=== PATIENT | male | born 1990 | race Caucasian/White ===

== ENCOUNTER 2021-04-28 08:36 | Emergency (ER) | payer MEDICAID, SELFPAY ==
[2021-04-28 09:15] VITALS: BP 116/62; PULSE 71; RESP 12; TEMP 36.7; O2SAT 100; BMI 22.4
--- NOTE | 2021-04-28 09:50 | ED.ABDPAIN ---
HPI - Abdominal Pain General Chief Complaint: Abdominal Pain Stated Complaint: seeking help withdrwals Time Seen by Provider: 04/28/21 09:40 Source: patient and family Mode of arrival: ambulatory Limitations: no limitations History of Present Illness HPI narrative: 31-year-old male presenting to the ED seeking treatment for opiate withdrawals. The patient tells me that 3 years ago he was prescribed a prescription for oxycodone for dental procedure and since then he has been abusing oxycodone tablets almost daily. He has been using up to 50 mg daily and his last use was Wednesday. He has not had any oxycodone since then and he is complaining of joint pain, body aches, chills and generalized abdominal cramping. He is here seeking detox. No SI or HI.. He is interested in inpatient detox. Related Data Allergies Allergy/AdvReac Type Severity Reaction Status Date / Time aspirin [ASA] Allergy Unknown HIVES Unverified 07/18/20 18:29 penicillin G [PENICILLIN G] Allergy Unknown HIVES Unverified 07/18/20 18:29 shrimp Allergy Unknown THROAT AND Unverified 07/18/20 18:29 MOUTH SWELLING Review of Systems Review of Systems Yes all other systems are reviewed and are negative Constitutional: Reports no additional constitutional complaints, Denies body ache(s), Reports chills, Denies fever(s), Denies headache(s) and Denies weakness Eyes: Reports no additional eye complaints and Denies change in vision Reports system reviewed and no additional complaints, except as documented, Denies dizziness, Denies headache(s), Denies nasal congestion, Denies nasal discharge and Denies neck pain Cardiovascular: Reports no additional cardiovascular complaints, Denies chest pain, Denies leg edema and Denies dyspnea Respiratory: Reports no additional respiratory complaints, Denies cough and Denies dyspnea Gastrointestinal: Reports no additional gastrointestinal complaints, Reports abdominal pain, Denies diarrhea, Denies nausea and Denies vomiting Genitourinary: Denies urinary incontinence Musculoskeletal: Reports no additional musculoskeletal complaints, Denies back pain, Denies arthralgias, Denies joint swelling, Denies neck pain, Denies numbness and Denies tingling Skin/Breast: Reports system reviewed and no additional complaints, except as docu and Denies rash Reports system reviewed and no additional complaints, except as documented, Denies Abnormal speech present, Denies dizziness, Denies headache(s), Denies numbness, Denies tingling and Denies weakness Physical Exam Vital Signs: Vital Signs: Last Vital Signs Temp 97.9 F 04/28/21 10:58 Pulse 57 04/28/21 10:58 Resp 16 04/28/21 10:58 BP 127/77 04/28/21 10:58 Pulse Ox 97 04/28/21 10:58 Body Mass Index 22.4 Const: General: cooperative, healthy appearing, comfortable and no acute distress Orientation/consciousness: patient oriented x3 Limitations: no limitations HENMT: Head: Yes normal to inspection Ears: hearing grossly normal bilaterally General nose exam: Normal external nose present Face and sinus: Yes normal facial exam Mouth: Normal oral and palatal mucosa present Throat: Yes posterior oropharynx normal Eyes: General: appearance normal, both eyes and all related structures Pupils: Equal, round and reactive pupils present Neck: Neck: Yes normal visual inspection Chest: Chest palpation & inspection: normal inspection of the chest Resp: Effort & Inspection: normal respiratory effort Auscultation: clear to auscultation bilaterally Cardio: Rate: regular rate Rhythm: regular rhythm Peripheral pulses: Peripheral pulses 2+ throughout GI: Inspection: Yes normal to inspection Palpation (GI): Soft to palpation and nontender Auscultation: normal bowel sounds Back/Spine/Pelvis: Thoracic/Lumbar Spine: thoracic and lumbar spine normal to inspection Skin: General skin exam: no rashes or lesions noted Neuro: General: patient oriented x3, no focal motor deficits and normal sensation to monofilament Cranial nerves: Yes Equal, round and reactive pupils present Cognition (Neuro): normal cognition Speech: No Abnormal speech present Gait exam (Neuro): Normal gait present Motor exam (neuro): 5/5 motor strength present throughout Extrem: General: Yes normal to inspection Course Course Course Narrative: 31-year-old male here with complaints of withdrawal from opiates. Last used Wednesday. seeking inpatient care. will order drug screen, have care team or power and recovery superintendent come and see patient -Going to [facility] detox from ED. Family to transport. MDM - Abdominal Pain MDM Narrative Medical decision making narrative: Opioid use disorder Medical Records Attestation: I reviewed the patient's medical records. Lab Data Attestation: I reviewed the patient's lab results. Labs: Lab Results 04/28/21 04/28/21 04/28/21 Range/Units 10:41 10:43 12:19 Urine Opiates Screen Not Detected (Not Detect) Ur Barbiturates Screen Not Detected (Not Detect) Ur Phencyclidine Scrn Not Detected (Not Detect) Ur Amphetamines Screen Not Detected (Not Detect) U Benzodiazepines Scrn Not Detected (Not Detect) Urine Cocaine Screen POSITIVE H (Not Detect) U Marijuana (THC) Screen POSITIVE H (Not Detect) Ethyl Alcohol < 10 mg/dL COVID-19 ([facility]) Negative (Negative) COVID-19 Clin Com See Note Discharge Plan Discharge Clinical Impression: Opioid use disorder Patient Disposition: Home, Self-Care Instructions: Opioid Use Disorder (ED) Additional Instructions: go direct to detox Referrals: Physician,None [Primary Care Provider] - 2 days (as needed) Interventions: ED Discharge Assessment Last Done: 04/28/21 13:37 Discharge Date/Time: 04/28/21 13:38 [facility] Past Medical History Attestation statement: The following information was validated with the patient. Source: old records reviewed and nursing notes reviewed Social History Social History Advance Directives: No Advance Directives Information Provided: No
[2021-04-28 10:58] VITALS: BP 127/77; PULSE 57; RESP 16; TEMP 36.6; O2SAT 97
[2021-04-28 11:11] LABS: Ethanol < 10 mg/dL
[2021-04-28 11:21] LABS: COVID-19 Test Negative (Negative); IDNOW Serial# 9DD0AD1C
--- NOTE | 2021-04-28 11:35 | MHC.RECOVSUP ---
Recovery Support note: Patient is a 31 year old male who presented to [facility] ED seeking detox. Patient reports using approximately 50mg of oxycodone daily with last use occurring Wednesday. Patient reports he stop using as he wants to get into recovery. Patient is reporting withdrawal symptoms and a desire to go to detox for withdrawal symptom management. Patient is currently uninsured however has a MA ID. This fiction and nonfiction prose writer and [employer] Srinath met with patient to verify that he is willing to travel outside of [facility] for treatment. Patient reports he is willing to go anywhere. Patient has been referred to [facility], [facility] and [facility]. Patient's clinical information is currently being reviewed by these facilities.
[2021-04-28] MEDS: Acetaminophen 325 MG TABLET 975 MG PO (12:22)
[2021-04-28 12:46] LABS: Amphetamine Screen Urine Not Detected (Not Detect); Barbiturates, Urine Not Detected (Not Detect); Benzodiazepines Screen Urine Not Detected (Not Detect); Cannabinoid Screen Urine POSITIVE (Not Detect); Cocaine Screen Urine POSITIVE (Not Detect); Opiate Screen Urine Not Detected (Not Detect); Phencyclidine Screen Urine Not Detected (Not Detect)
== END 2021-04-28 13:38 | disposition home or self-care (01) ==
PROVIDERS: Nurse Practitioner Family; Emergency Provider Emergency Medicine Emergency Medical Services
DX: F11.23 Opioid dependence with withdrawal (principal); Z20.822 Contact with and (suspected) exposure to COVID-19
CPT/HCPCS: 36415; 80307; 82077; 87635; 99283; 99284

== ENCOUNTER 2021-06-20 07:19 | Emergency (ER) | payer OTHER, MEDICAID, SELFPAY ==
--- NOTE | ~2021-06-20 | XR_ITS ---
EXAMINATION: XR WRIST, RIGHT CLINICAL INFORMATION: Injury, pain and swelling COMPARISON: None TECHNIQUE: The right wrist is imaged in 4 views. FINDINGS: There is no fracture or dislocation. The bony mineralization is normal. No destructive process or periostitis. The ulnar variance is neutral. There is no joint narrowing or erosive change or chondrocalcinosis. XR/XR wrist RT min 3V IMPRESSION: Normal right wrist.
[2021-06-20 08:35] VITALS: BP 106/69; PULSE 67; RESP 18; TEMP 36.7; O2SAT 98; BMI 24.1
[2021-06-20] MEDS: Diphth,Pertus(ACell),Tet Adult 0.5 ML SYRINGE IM (09:21)
--- NOTE | 2021-06-20 09:32 | ED.EXTPRO ---
HPI - Extremity Problem General Chief complaint: Extremity Injury, Upper Stated complaint: hand injury - work related Time Seen by Provider: 06/20/21 09:12 Source: patient Mode of arrival: ambulatory Limitations: no limitations History of Present Illness HPI Narrative: 31-year-old male presenting to the ED after a work related injury where he caught his hand between some metal pallets and fell and since then has been having pain to his right wrist/hand/thumb and reports pain with range of motion. Reports that he is not up-to-date on tetanus. Denies any numbness or tingling or inability to move the joint or other injuries complaints or concerns. MD Complaint: extremity pain Onset (ago): minute(s) (Prior to arrival) Pain Consistency: constant Location: right and upper extremity Quality: aching Radiation: none Relieving factors: immobilization Exacerbating factors: range of motion and palpation Associated symptoms: denies other symptoms Related Data Previous Rx's Medication Instructions Recorded acetaminophen 300 mg-codeine 30 mg 1 tab PO Q8H PRN #10 tab 06/20/21 tablet ibuprofen 800 mg tablet 800 mg PO Q8H PRN #14 tab 06/20/21 Allergies Allergy/AdvReac Type Severity Reaction Status Date / Time aspirin [ASA] Allergy Unknown HIVES Verified 06/20/21 08:38 penicillin G [PENICILLIN G] Allergy Unknown HIVES Verified 06/20/21 08:38 shrimp Allergy Unknown THROAT AND Verified 06/20/21 08:38 MOUTH SWELLING Review of Systems Review of Systems: Constitutional : No lethargy ENT/Mouth : No Ear Pain, No Nasal discharge/drainage Eyes: No Eye Pain, No Swelling, No Redness, No Foreign Body, No Vision Changes Cardiovascular : No Chest Pain, No SOB Respiratory : No Cough Gastrointestinal : No Nausea, No Vomiting, No abdominal Pain Genitourinary : No Dysuria, No Urinary Frequency, No Urinary Incontinence, No Urgency, No Flank Pain Musculoskeletal : + joint pain, No neck stiffness, No back pain/injury Skin : No lacerations Neuro : No unsteady gait, No Paresthesias, No Loss of Consciousness, No altered mental status, No Headache Yes all other systems are reviewed and are negative PMFSH Past Medical History Attestation statement: The following information was validated with the patient. Medical History No known health problems Social History Social History Advance Directives: No Advance Directives Information Provided: No Physical Exam Vital Signs: Vital Signs: Last Vital Signs Temp 98.0 F 06/20/21 08:35 Pulse 67 06/20/21 08:35 Resp 18 06/20/21 08:35 BP 106/69 06/20/21 08:35 Pulse Ox 98 06/20/21 08:35 Body Mass Index 24.1 vital signs have been reviewed as normal and appeared to be correct. Blood pressure normal. Heart rate normal. Respiration rate normal. Temperature normal. Oxygen saturation normal. Appearance: Alert. Oriented X3. No acute distress. Head: Normal external exam. Normocephalic. Atraumatic. Eyes: PERRLA. EOMI. Conjunctiva and sclera normal. Eyelids normal. ENT: Pharynx normal. Uvula midline. Moist mucous membranes. Neck: Normal inspection. Neck supple. FROM. No adenopathy. Thyroid Normal. No meningeal signs. No neck mass noted. CVS: Normal heart rate and rhythm. Heart sound normal. Pulses normal throughout. No murmurs/rales/gallops. Respiratory: No respiratory distress. Painless inspiration. Breath sounds normal. No wheezes/rales/rhonchi noted. Chest nontender. No accessory muscle usage noted or decreased air movement noted. Back: No CVA tenderness. Full range of motion noted. No rashes/lesion/induration/fluctuance or signs of infection noted. Skin: Skin warm and dry. Normal skin color. Normal skin turgor. No rashes/lesions/lacerations noted. Extremities: Patient with tenderness palpation to right wrist at the radial aspect with tenderness palpation at the scaphoid and superficial abrasions no active bleeding or foreign bodies or lacerations noted. No ligamentous laxity is noted. Patient reports pain with range of motion and has mild limited range of motion of the right thumb due to pain. Otherwise all other normal range of motion and nontender. Neuro: Oriented X 3. No motor deficit. No sensory deficit. Reflexes normal. Normal steady gait. No focal neuro deficits noted. Vascular: + radial pulses/+ 2 distal pedal pulses/+2 dorsalis pedis b/l. Normal cap refill. No cyanosis noted to upper extremity nails and lower extremity toes nails. Course Course Course Narrative: 31-year-old male presenting to the ED after work related injury where his hand/wrist was caught between metal pallets and since then he has been having pain to right thumb/hand/wrist with pain with range of motion of the right thumb although no ligamentous laxity. Patient has superficial abrasions. No active bleeding or foreign bodies or lacerations. No indication for suturing. X-ray negative for any acute processes. Although due to patient having scaphoid tenderness will place in a thumb spica update the patient's tetanus and DC home with instructions to follow up with [facility] and [facility] surgeon and to return if any new or worsening symptoms. Patient understands agrees with this plan. MDM - Extremity (Nontraumatic) Imaging Data Right wrist x-ray: Attestation: I personally reviewed and interpreted this imaging study as follows: Radiologist's impression: FINDINGS: There is no fracture or dislocation. The bony mineralization is normal. No destructive process or periostitis. The ulnar variance is neutral. There is no joint narrowing or erosive change or chondrocalcinosis.? XR/XR wrist RT min 3V IMPRESSION: Normal right wrist. Procedures Orthopedic Splinting/Casting Injury #1: Side: right Upper Extremity Injury Location: wrist and hand Upper Extremity Immobilizer: thumb spica Discharge Plan Discharge Clinical Impression: Sprain and strain of wrist Patient Disposition: Home, Self-Care Instructions: Sprain (ED) Prescriptions: New ibuprofen 800 mg tablet 800 mg PO Q8H PRN (Reason: pain) Qty: 14 RF: 0 acetaminophen-codeine 300-30 mg tablet 1 tab PO Q8H PRN (Reason: pain) Qty: 10 RF: 0 Referrals: [facility] [Provider Group] - 2 days Didi Killian MD [Physician] - 1 week (Re-evaluation patient noted to have scaphoid tenderness) Stand Alone Forms: Work/School Release Print Language: Estonian
== END 2021-06-20 09:53 | disposition home or self-care (01) ==
PROVIDERS: Emergency Provider Internal Medicine
DX: S66.911A Strain of unspecified muscle, fascia and tendon at wrist and hand level, right hand, initial encounter (principal); S63.501A Unspecified sprain of right wrist, initial encounter; W23.1XXA Caught, crushed, jammed, or pinched between stationary objects, initial encounter; Y93.89 Activity, other specified; Y92.63 Factory as the place of occurrence of the external cause; Y99.0 Civilian activity done for income or pay
CPT/HCPCS: 29125; 73110; 90471; 90715; 99283; 99284

== ENCOUNTER 2021-08-18 14:52 | Emergency (ER) | payer MEDICAID, SELFPAY ==
[2021-08-18 15:22] VITALS: BP 126/57; PULSE 62; RESP 18; TEMP 36.9; O2SAT 99; BMI 24.4
--- NOTE | 2021-08-18 15:23 | ED.GENADULT ---
HPI - General Adult General Chief complaint: Fever Stated complaint: Fever Time Seen by Provider: 08/18/21 15:23 Source: patient Mode of arrival: ambulatory Limitations: no limitations History of Present Illness HPI narrative: 31 yo male here with complaints of subjective fever, diarrhea, sore throat, nausea, upper abdominal pain since yesterday. No cough, shortness of breath or chest pain. Not vaccinated for COVID 19. Related Data Previous Rx's Medication Instructions Recorded acetaminophen 300 mg-codeine 30 mg 1 tab PO Q8H PRN #10 tab 06/20/21 tablet ibuprofen 800 mg tablet 800 mg PO Q8H PRN #14 tab 06/20/21 Allergies Allergy/AdvReac Type Severity Reaction Status Date / Time aspirin [ASA] Allergy Unknown HIVES Verified 06/20/21 08:38 penicillin G [PENICILLIN G] Allergy Unknown HIVES Verified 06/20/21 08:38 shrimp Allergy Unknown THROAT AND Verified 06/20/21 08:38 MOUTH SWELLING Review of Systems Review of Systems: Yes all other systems are reviewed and are negative Constitutional: Constitutional: Reports no additional constitutional complaints, Denies body ache(s), Denies chills, Reports fever(s), Denies headache(s) and Denies weakness Eyes: Eyes: Reports no additional eye complaints and Denies change in vision ENT: Reports system reviewed and no additional complaints, except as documented, Denies dizziness, Denies headache(s), Denies nasal congestion, Denies nasal discharge, Denies neck pain and Reports sore throat Cardiovascular: Cardiovascular: Reports no additional cardiovascular complaints, Denies chest pain, Denies leg edema and Denies dyspnea Respiratory: Respiratory: Reports no additional respiratory complaints, Denies cough and Denies dyspnea Gastrointestinal: Gastrointestinal: Reports no additional gastrointestinal complaints, Reports abdominal pain, Reports diarrhea, Reports nausea and Denies vomiting Genitourinary: Genitourinary: Denies urinary incontinence Musculoskeletal: Musculoskeletal: Reports no additional musculoskeletal complaints, Denies back pain, Denies arthralgias, Denies joint swelling, Denies neck pain, Denies numbness and Denies tingling Integumentary/Breasts: Skin/Breast: Reports system reviewed and no additional complaints, except as docu and Denies rash Neurologic: Reports system reviewed and no additional complaints, except as documented, Denies Abnormal speech present, Denies dizziness, Denies headache(s), Denies numbness, Denies tingling and Denies weakness PMFSH Past Medical History Attestation statement: The following information was validated with the patient. Source: old records reviewed and nursing notes reviewed Medical History No known health problems Social History Social History Advance Directives: No Advance Directives Information Provided: No Physical Exam Vital Signs: Vital Signs: Last Vital Signs Temp 98.5 F 08/18/21 15:22 Pulse 62 08/18/21 15:22 Resp 18 08/18/21 15:22 BP 126/57 L 08/18/21 15:22 Pulse Ox 99 08/18/21 15:22 Body Mass Index 24.4 Const: General: cooperative, healthy appearing, comfortable and no acute distress Orientation/consciousness: patient oriented x3 Limitations: no limitations HENMT: Head: Yes normal to inspection Ears: hearing grossly normal bilaterally and TM's normal bilaterally General nose exam: Normal external nose present Face and sinus: Yes normal facial exam Mouth: Normal oral and palatal mucosa present Throat: Yes posterior oropharynx normal, Yes tonsils normal and Yes uvula midline Eyes: General: appearance normal, both eyes and all related structures Pupils: Equal, round and reactive pupils present Neck: Neck: Yes normal visual inspection, Yes full ROM, Yes no lymphadenopathy and Yes no meningeal signs Chest: Chest palpation & inspection: normal inspection of the chest Resp: Effort & Inspection: normal respiratory effort Auscultation: clear to auscultation bilaterally Cardio: Rate: regular rate Rhythm: regular rhythm Peripheral pulses: Peripheral pulses 2+ throughout GI: Inspection: Yes normal to inspection Palpation (GI): Soft to palpation and nontender Auscultation: normal bowel sounds Back/Spine/Pelvis: Thoracic/Lumbar Spine: thoracic and lumbar spine normal to inspection Skin: General skin exam: no rashes or lesions noted Neuro: General: patient oriented x3, no meningeal signs, no focal motor deficits and normal sensation to monofilament Cranial nerves: Yes Equal, round and reactive pupils present Cognition (Neuro): normal cognition Speech: No Abnormal speech present Gait exam (Neuro): Normal gait present Motor exam (neuro): 5/5 motor strength present throughout Extrem: General: Yes normal to inspection Course Course Course Narrative: 1523-This is a rapid medical exam. 31 yo male here with diarrhea, sore throat, subjective fevers, nausea and upper abdominal pain since last evening. Not vaccinated for covid. Will check covid screen. Deferred additional HPI, ROS and PE to primary provider 1630-Viral symptoms <48 hrs. COVID screen negative. Likely viral but consider covid and patient should get re-tested in 48 hrs for persistent symptoms. No focal abdominal pain on exam. Reviewed worrisome signs/symptoms with patient and when to return to ED. Comfortable with discharge home. Medical Decision Making Medical Records Medical records reviewed: Yes I reviewed the patient's medical records. Lab Data Lab results reviewed: Yes I reviewed the patient's lab results. Labs: Lab Results 08/18/21 Range/Units 15:34 COVID-19 ([facility]) Negative (Negative) COVID-19 Clin Com See Note Discharge Plan Discharge Clinical Impression: Viral infection Patient Disposition: Home, Self-Care Instructions: Viral Syndrome (ED) Additional Instructions: Covid test negative. If persistent symptoms in 48 hrs then re-test motrin or tylenol for pain or fever increase fluids, rest Prescriptions: No Action ibuprofen 800 mg tablet 800 mg PO Q8H PRN (Reason: pain) Qty: 14 RF: 0 acetaminophen-codeine 300-30 mg tablet 1 tab PO Q8H PRN (Reason: pain) Qty: 10 RF: 0 Stand Alone Forms: Work/School Release Interventions: ED Discharge Assessment Last Done: 08/18/21 16:22 Discharge Date/Time: 08/18/21 16:23
[2021-08-18 15:55] LABS: COVID-19 Test Negative (Negative); IDNOW Serial# 9DD0AD1C
== END 2021-08-18 16:23 | disposition home or self-care (01) ==
PROVIDERS: Nurse Practitioner Family; Emergency Provider Student in an Organized Health Care Education/Training Program
DX: B34.9 Viral infection, unspecified (principal); R50.9 Fever, unspecified; Z20.822 Contact with and (suspected) exposure to COVID-19; Z79.899 Other long term (current) drug therapy
CPT/HCPCS: 36415; 87635; 99283

== ENCOUNTER 2021-08-19 20:12 | Emergency (ER) | payer MEDICAID, SELFPAY ==
--- NOTE | ~2021-08-19 | XR_ITS ---
EXAMINATION: XR CHEST CLINICAL INFORMATION: Cough COMPARISON: Chest x-ray September 06, 2016 TECHNIQUE: Frontal view of the chest was obtained. FINDINGS: Cardiac silhouette is normal in size. The lungs are well aerated. There is no lobar consolidation. No pleural effusion or pneumothorax. No gross osseous abnormality. XR/XR chest 1V IMPRESSION: Stable examination demonstrating no acute pulmonary pathology.
[2021-08-19 20:33] VITALS: BP 139/75; PULSE 102; RESP 18; TEMP 36.9; O2SAT 98; BMI 25.7
--- NOTE | 2021-08-19 21:25 | ED_ITS ---
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 rash had similar episode in the past and had to use inhaler that time no history of asthma as such Related Data Previous Rx's Medication Instructions Recorded acetaminophen 300 mg-codeine 30 mg 1 tab PO Q8H PRN #10 tab 06/20/21 tablet ibuprofen 800 mg tablet 800 mg PO Q8H PRN #14 tab 06/20/21 albuterol sulfate 90 mcg/actuation 2 puff INHALATION Q4-6H PRN #8.5 g 08/19/21 aerosol inhaler (ProAir HFA) codeine 10 mg-guaifenesin 100 mg/5 10 ml PO Q4-6H PRN #237 ml 08/19/21 mL oral liquid levofloxacin 750 mg tablet 750 mg PO DAILY 7 Days #7 tab 08/19/21 prednisone 20 mg tablet 40 mg PO DAILY #10 tab 08/19/21 Allergies Allergy/AdvReac Type Severity Reaction Status Date / Time aspirin [ASA] Allergy Unknown HIVES Verified 08/19/21 20:33 penicillin G [PENICILLIN G] Allergy Unknown HIVES Verified 08/19/21 20:33 shrimp Allergy Unknown THROAT AND Verified 08/19/21 20:33 MOUTH SWELLING Review of Systems Review of Systems: Yes all other systems are reviewed and are negative PMFSH Past Medical History Medical History No known health problems Social History Social History Advance Directives: No Advance Directives Information Provided: No Physical Exam Vital Signs: Vital Signs: Last Vital Signs Temp 98.7 F 08/19/21 21:58 Pulse 80 08/19/21 21:58 Resp 20 08/19/21 21:58 BP 109/58 L 08/19/21 21:58 Pulse Ox 98 08/19/21 21:58 Body Mass Index 25.7 Appearance: Alert. Oriented X3. No acute distress. ENT: Pharynx normal. Oral Mucosa moist Neck: Normal inspection. Neck supple. CVS: Normal heart rate and rhythm. Pulses normal. Respiratory: No respiratory distress. Prolonged expiration with wheezing no crackles Abdomen: Soft and nontender. Bowel sounds are present, Skin: Skin warm and dry. Normal skin color. Normal skin turgor. Extremities: No lower extremity edema. No calf tenderness Neuro: Oriented X 3. MDM - URI/Sore Throat MDM Narrative Medical decision making narrative: Patient clinically with acute bronchitis repeat COVID negative discharge patient on prednisone inhaler and short course of Levaquin Lab Data Attestation: I reviewed the patient's lab results. Result diagrams: 08/19/21 21:36 08/19/21 21:36 Labs: Lab Results 08/19/21 08/19/21 08/19/21 Range/Units 21:36 21:36 21:36 WBC 6.9 (4.8-10.8) X10*3/uL RBC 4.90 (4.60-5.80) X10*6/uL Hgb 15.6 (14.0-18.0) g/dl Hct 44.8 (42-52) % MCV 91.4 (80-98) fL MCH 31.8 (27.0-33.0) pg MCHC 34.8 (31.0-36.0) g/dl RDW 12.6 (11.0-16.0) % Plt Count 191 (160-400) X10*3/uL MPV 9.9 (9.4-12.4) fL Immature Gran % (Auto) 0.1 (0.0-0.4) % Neut % (Auto) 66.0 (45-73) % Lymph % (Auto) 22.5 (20-40) % [place] % (Auto) 9.1 (2-11) % Eos % (Auto) 1.9 (0-4) % Baso % (Auto) 0.4 (0-2) % Lymph # (Auto) 1.5 (1.2-4.9) X10*3/uL [place] # (Auto) 0.6 (0.1-1.2) X10*3/uL Eos # (Auto) 0.1 (0.0-0.4) X10*3/uL Baso # (Auto) 0.0 (0.0-0.2) X10*3/uL Abs Immat Gran (auto) 0.01 (0.00-0.03) X10*3/uL Absolute Neuts (auto) 4.5 (2.0-8.3) X10*3/uL Absolute Nucleated RBC 0.000 (0.0-0.012) X10*3/uL Nucleated RBC % (auto) 0.0 (0.0-0.2) /100WBC Sodium 143 (135-145) mmol/L Potassium 4.0 (3.3-5.1) mmol/L Chloride 106 (96-108) mmol/L Carbon Dioxide 27 (22-29) mmol/L Anion Gap 14 (12-20) BUN 11 (9-16) mg/dL Creatinine 0.98 (0.5-1.4) mg/dL Estim Creat Clear Calc 122.0 Estimated GFR > 60 Random Glucose 94 (60-115) mg/dL Calcium 9.6 (8.4-10.2) mg/dL COVID-19 ([facility]) Negative (Negative) COVID-19 Clin Com See Note Discharge Plan Discharge Clinical Impression: Bronchitis Patient Disposition: Home, Self-Care Instructions: Acute Bronchitis (ED) Additional Instructions: Take medication as prescribed and follow with PCP Prescriptions: New levofloxacin 750 mg tablet 750 mg PO DAILY 7 Days Qty: 7 RF: 0 prednisone 20 mg tablet 40 mg PO DAILY Qty: 10 RF: 0 codeine-guaifenesin 10-100 mg/5 mL liquid 10 ml PO Q4-6H PRN (Reason: cough) Qty: 237 RF: 0 albuterol sulfate [ProAir HFA] 90 mcg/actuation HFA aerosol inhaler 2 puff inhalation Q4-6H PRN (Reason: Wheezing) Qty: 8.5 RF: 0 No Action ibuprofen 800 mg tablet 800 mg PO Q8H PRN (Reason: pain) Qty: 14 RF: 0 acetaminophen-codeine 300-30 mg tablet 1 tab PO Q8H PRN (Reason: pain) Qty: 10 RF: 0 Stand Alone Forms: Work/School Release Interventions: ED Discharge Assessment Last Done: 08/19/21 23:19 Discharge Date/Time: 08/19/21 23:19
[2021-08-19 21:45] LABS: MANUAL DIFF FLAG NO
[2021-08-19 21:50] LABS: Basophils Percent Auto 0.4 % (0-2); Eosinophils Absolute Auto 0.1 X10*3/uL (0.0-0.4); Eosinophils Percent Auto 1.9 % (0-4); Hematocrit 44.8 % (42-52); Hemoglobin 15.6 g/dl (14.0-18.0); Imm Gran Abs Auto 0.01 X10*3/uL (0.00-0.03); Imm Gran Pct Auto 0.1 % (0.0-0.4); Lymphocytes Absolute Auto 1.5 X10*3/uL (1.2-4.9); Lymphocytes Percent Auto 22.5 % (20-40); Mean Corpuscular HGB Conc 34.8 g/dl (31.0-36.0); Mean Corpuscular Hemoglobin 31.8 pg (27.0-33.0); Mean Corpuscular Volume 91.4 fL (80-98); Mean Platelet Volume 9.9 fL (9.4-12.4); Monocytes Absolute Auto 0.6 X10*3/uL (0.1-1.2); Monocytes Percent Auto 9.1 % (2-11); Neutrophils Absolute Auto 4.5 X10*3/uL (2.0-8.3); Platelet Count 191 X10*3/uL (160-400); Red Cell Distribution Width 12.6 % (11.0-16.0); White Blood Count 6.9 X10*3/uL (4.8-10.8)
[2021-08-19 21:58] VITALS: BP 109/58; PULSE 80; RESP 20; TEMP 37.1; O2SAT 98
[2021-08-19 22:03] LABS: COVID-19 Test Negative (Negative); IDNOW Serial# 9DD0AD1C
[2021-08-19 22:04] LABS: Anion Gap 14 (12-20); Blood Urea Nitrogen 11 mg/dL (9-16); Calcium 9.6 mg/dL (8.4-10.2); Carbon Dioxide 27 mmol/L (22-29); Chloride 106 mmol/L (96-108); Estimated Glomerular Filt Rate > 60; Glucose Random 94 mg/dL (60-115); Sodium 143 mmol/L (135-145)
[2021-08-19] MEDS: guaiFEN/Codeine SF 200/20/10ML 10 ML LIQUID PO (22:46)
[2021-08-19] MEDS: levoFLOXacin 500 MG TABLET 750 MG PO (22:47)
[2021-08-19] MEDS: predniSONE 20 MG TABLET 60 MG PO (22:47)
== END 2021-08-19 23:19 | disposition home or self-care (01) ==
PROVIDERS: Emergency Provider Internal Medicine
DX: J40 Bronchitis, not specified as acute or chronic (principal); Z20.822 Contact with and (suspected) exposure to COVID-19
CPT/HCPCS: 36415; 71045; 80048; 85025; 87635; 99284

== ENCOUNTER 2021-09-30 04:56 | Emergency (ER) | payer MEDICAID, SELFPAY ==
--- NOTE | ~2021-09-30 | XR_ITS ---
EXAMINATION: XR CHEST CLINICAL INFORMATION: Shortness of breath and COVID positive. COMPARISON: Chest x-ray dated 08/19/2021. TECHNIQUE: Frontal view of the chest was obtained. FINDINGS: No consolidative airspace disease identified. No pleural effusions visible. The cardiomediastinal silhouette is normal. No acute osseous abnormality is seen. XR/XR chest 1V IMPRESSION: No focal airspace disease. If clinically warranted, a CT scan of the chest could be considered in follow-up for more detailed evaluation.
[2021-09-30 05:50] VITALS: BP 141/74; PULSE 87; RESP 16; TEMP 36.9; O2SAT 99; BMI 21.7
[2021-09-30 06:16] LABS: COVID-19 Test Positive (Negative)
--- NOTE | 2021-09-30 07:00 | ED.GENADULT ---
HPI - General Adult General Chief complaint: Upper Respiratory Symptoms Stated complaint: fever, bodyache Time Seen by Provider: 09/30/21 06:59 Source: patient Mode of arrival: ambulatory Limitations: no limitations History of Present Illness HPI narrative: 31-year-old male came in for evaluation of upper respiratory symptoms. Patient had a fever, chills, sore throat, difficulty breathing, loss of taste sensation, patient just travel from [place] yesterday reported that to family member were sick. Patient reported also a mild shortness of breath, patient is a smoker. Patient lives home with his twin children. Related Data Previous Rx's Medication Instructions Recorded acetaminophen 300 mg-codeine 30 mg 1 tab PO Q8H PRN #10 tab 06/20/21 tablet ibuprofen 800 mg tablet 800 mg PO Q8H PRN #14 tab 06/20/21 albuterol sulfate 90 mcg/actuation 2 puff INHALATION Q4-6H PRN #8.5 g 08/19/21 aerosol inhaler (ProAir HFA) codeine 10 mg-guaifenesin 100 mg/5 10 ml PO Q4-6H PRN #237 ml 08/19/21 mL oral liquid levofloxacin 750 mg tablet 750 mg PO DAILY 7 Days #7 tab 08/19/21 prednisone 20 mg tablet 40 mg PO DAILY #10 tab 08/19/21 Allergies Allergy/AdvReac Type Severity Reaction Status Date / Time aspirin [ASA] Allergy Unknown HIVES Verified 08/19/21 20:33 penicillin G [PENICILLIN G] Allergy Unknown HIVES Verified 08/19/21 20:33 shrimp Allergy Unknown THROAT AND Verified 08/19/21 20:33 MOUTH SWELLING Review of Systems Review of Systems: All other systems are reviewed and are negative Constitutional: Reports as per HPI and Reports no additional constitutional complaints Eyes: Reports as per HPI and Reports no additional eye complaints Reports system reviewed and no additional complaints, except as documented Cardiovascular: Reports as per HPI and Reports no additional cardiovascular complaints Respiratory: Reports as per HPI and Reports no additional respiratory complaints Gastrointestinal: Reports as per HPI and Reports no additional gastrointestinal complaints Genitourinary: Reports no additional female genitourinary complaints Musculoskeletal: Reports no additional musculoskeletal complaints Skin/Breast: Reports system reviewed and no additional complaints, except as docu Psychiatric: Reports no additional psychiatric complaints Endocrine: Reports no additional endocrine complaints Hematologic/Lymphatic: Reports no additional hematologic/lymphatic complaints Allergic/Immunologic: Reports no additional allergic/immunologic complaints Reports system reviewed and no additional complaints, except as documented and Reports Abnormal speech present [facility] Past Medical History Medical History Asthma Social History Social History Advance Directives: No Advance Directives Information Provided: No Physical Exam Vital Signs: Vital Signs: Last Vital Signs Temp 97.3 F 09/30/21 07:53 Pulse 93 09/30/21 07:53 Resp 18 09/30/21 07:53 BP 109/62 09/30/21 07:53 Pulse Ox 97 09/30/21 07:53 Body Mass Index 21.7 Vital signs have been reviewed as appeared to be correct. Blood pressure normal. Heart rate normal. Respiration rate normal. Temperature normal. Oxygen saturation normal. Appearance: Alert. Oriented X3. No acute distress. Head: Normal external exam. Normocephalic. Atraumatic. No Rivera signs noted. No raccoon eyes noted Eyes: PERRLA. EOMI. Conjunctiva and sclera normal. Eyelids normal. ENT: TM's Normal. Pharynx normal. Uvula midline. Moist mucous membranes. No trismus noted. No drooling noted. No muffled voice noted. Neck: Normal inspection. Neck supple. FROM. No adenopathy. Thyroid Normal. No meningeal signs. No neck mass noted. CVS: Normal heart rate and rhythm. Heart sound normal. No murmurs noted. Pulses normal throughout. Respiratory: No respiratory distress. Painless inspiration. Breath sounds normal. No wheezes/rales/rhonchi noted. Chest nontender. No accessory muscle usage noted or decreased air movement noted. Abdomen: Soft and nontender. Bowel sounds normal in all 4 quadrants. No distention noted. No organomegaly noted. No visible injury noted. Back: No CVA tenderness. Full range of motion noted. Skin: Skin warm and dry. Normal skin color. Normal skin turgor. No rashes/lesions/lacerations noted. Extremities: No lower extremity edema. Extremities exhibit normal range of motion. Extremities nontender. Neuro: Oriented X 3. Cranial nerve exam: II-XII are grossly intact No motor deficit. No sensory deficit. Reflexes normal. Course Course Course Narrative: Assessment and plan. 31-year-old male positive for COVID infection, with normal oxygen saturation, unremarkable chest x-ray. Will discharge home patient was instructed to quarantine himself. Medical Decision Making Lab Data Lab results reviewed: Yes I reviewed the patient's lab results. Labs: Lab Results 09/30/21 Range/Units 06:03 COVID-19 ([facility]) Positive A (Negative) COVID-19 Clin Com See Note Imaging Data Chest x-ray: Attestation: I personally reviewed and interpreted this imaging study as follows: Radiologist's impression: No focal airspace disease. If clinically warranted, a CT scan of the chest could be considered in follow-up for more detailed evaluation. ? Discharge Plan Discharge Clinical Impression: COVID-19 virus infection Patient Disposition: Home, Self-Care Instructions: Covid-19 Viral Syndrome and Novel Coronavirus (ED) Hey/Ath Prescriptions: No Action ibuprofen 800 mg tablet 800 mg PO Q8H PRN (Reason: pain) Qty: 14 RF: 0 acetaminophen-codeine 300-30 mg tablet 1 tab PO Q8H PRN (Reason: pain) Qty: 10 RF: 0 levofloxacin 750 mg tablet 750 mg PO DAILY 7 Days Qty: 7 RF: 0 prednisone 20 mg tablet 40 mg PO DAILY Qty: 10 RF: 0 codeine-guaifenesin 10-100 mg/5 mL liquid 10 ml PO Q4-6H PRN (Reason: cough) Qty: 237 RF: 0 albuterol sulfate [ProAir HFA] 90 mcg/actuation HFA aerosol inhaler 2 puff inhalation Q4-6H PRN (Reason: Wheezing) Qty: 8.5 RF: 0 Referrals: Physician,None [Primary Care Provider] - 2 days
[2021-09-30 07:53] VITALS: BP 109/62; PULSE 93; RESP 18; TEMP 36.3; O2SAT 97
== END 2021-09-30 08:19 | disposition home or self-care (01) ==
PROVIDERS: Emergency Provider Emergency Medicine
DX: U07.1 COVID-19 (principal)
CPT/HCPCS: 36415; 71045; 87635; 99283; 99284

== ENCOUNTER 2021-10-11 01:23 | Emergency (ER) | payer MEDICAID, SELFPAY ==
[2021-10-11 01:48] VITALS: BP 135/67; PULSE 80; RESP 18; TEMP 36.4; O2SAT 99; BMI 24.4
[2021-10-11 02:55] VITALS: BP 120/64; PULSE 71; RESP 14; TEMP 37.2; O2SAT 99
[2021-10-11 03:03] LABS: IDNOW Serial# 55D5AD1C
[2021-10-11 03:04] LABS: COVID-19 Test Positive (Negative)
--- NOTE | 2021-10-11 03:11 | ED.GENADULT ---
HPI - General Adult General Chief complaint: Nausea/Vomiting/Diarrhea Stated complaint: diarrhea Time Seen by Provider: 10/11/21 02:36 Source: patient Mode of arrival: ambulatory History of Present Illness HPI narrative: 31-year-old male presents with complaints of mild nausea and some diarrhea and concern for COVID-19 infection. And is requesting to be tested. He states that he has no taste, a headache, as well as body aches. Related Data Previous Rx's Medication Instructions Recorded acetaminophen 300 mg-codeine 30 mg 1 tab PO Q8H PRN #10 tab 06/20/21 tablet ibuprofen 800 mg tablet 800 mg PO Q8H PRN #14 tab 06/20/21 albuterol sulfate 90 mcg/actuation 2 puff INHALATION Q4-6H PRN #8.5 g 08/19/21 aerosol inhaler (ProAir HFA) codeine 10 mg-guaifenesin 100 mg/5 10 ml PO Q4-6H PRN #237 ml 08/19/21 mL oral liquid levofloxacin 750 mg tablet 750 mg PO DAILY 7 Days #7 tab 08/19/21 prednisone 20 mg tablet 40 mg PO DAILY #10 tab 08/19/21 Allergies Allergy/AdvReac Type Severity Reaction Status Date / Time aspirin [ASA] Allergy Unknown HIVES Verified 08/19/21 20:33 penicillin G [PENICILLIN G] Allergy Unknown HIVES Verified 08/19/21 20:33 shrimp Allergy Unknown THROAT AND Verified 08/19/21 20:33 MOUTH SWELLING Review of Systems Review of Systems: Pertinent positives and negatives as stated in HPI 10 point review of systems is otherwise negative. PMFSH Past Medical History Source: nursing notes reviewed Medical History Asthma Social History Social History Advance Directives: No Advance Directives Information Provided: Yes Physical Exam Vital Signs: Vital Signs: Last Vital Signs Temp 98.9 F 10/11/21 02:55 Pulse 71 10/11/21 02:55 Resp 14 10/11/21 02:55 BP 120/64 10/11/21 02:55 Pulse Ox 99 10/11/21 02:55 BMI result Body Mass Index 24.4 VITAL SIGNS: Reviewed. GENERAL: Well developed, well nourished, in no acute distress. HEAD: Normocephalic/atraumatic EYES: PERRLA, EOMI LUNGS: Normal breath sounds. No adventitious sounds or accessory muscle use. SpO2<99> CARDIOVASCULAR: Regular rate and rhythm without noted murmurs ABDOMEN: Soft, non-tender, non-distended with bowel sounds. NEUROLOGIC: Alert and oriented x 4. Course Course Course Narrative: 31-year-old male history and clinical presentation consistent with viral syndrome and on review of investigations his COVID-19 positive. Medical Decision Making Lab Data Labs: Lab Results 10/11/21 Range/Units 02:43 COVID-19 ([facility]) Positive A (Negative) COVID-19 Clin Com See Note Discharge Plan Discharge Clinical Impression: COVID-19 virus infection Patient Disposition: Home, Self-Care Instructions: COVID-19 (Coronavirus Disease 2019) (ED) Additional Instructions: 1. You must isolate for 2 weeks as per all city, state, Federal guidelines. 2. Recommend using [id number] Tylenol/ibuprofen as needed for pain control, body aches, temperatures greater than 100.4. Prescriptions: No Action ibuprofen 800 mg tablet 800 mg PO Q8H PRN (Reason: pain) Qty: 14 RF: 0 acetaminophen-codeine 300-30 mg tablet 1 tab PO Q8H PRN (Reason: pain) Qty: 10 RF: 0 levofloxacin 750 mg tablet 750 mg PO DAILY 7 Days Qty: 7 RF: 0 prednisone 20 mg tablet 40 mg PO DAILY Qty: 10 RF: 0 codeine-guaifenesin 10-100 mg/5 mL liquid 10 ml PO Q4-6H PRN (Reason: cough) Qty: 237 RF: 0 albuterol sulfate [ProAir HFA] 90 mcg/actuation HFA aerosol inhaler 2 puff inhalation Q4-6H PRN (Reason: Wheezing) Qty: 8.5 RF: 0
== END 2021-10-11 04:04 | disposition home or self-care (01) ==
PROVIDERS: Emergency Provider Student in an Organized Health Care Education/Training Program
DX: U07.1 COVID-19 (principal); R43.9 Unspecified disturbances of smell and taste; R51.9 Headache, unspecified; R11.2 Nausea with vomiting, unspecified
CPT/HCPCS: 36415; 87635; 99283

== ENCOUNTER 2021-12-10 02:09 | Emergency (ER) | payer MEDICAID, SELFPAY ==
--- NOTE | ~2021-12-10 | XR_ITS ---
EXAMINATION: XR KNEE, LEFT CLINICAL INFORMATION: Fall COMPARISON: None TECHNIQUE: Four views of the left knee. FINDINGS: Osseous alignment is anatomic. Joint spaces are maintained. No acute fracture is seen. No significant effusion. XR/XR knee LT 3V IMPRESSION: No acute findings.
[2021-12-10 02:12] VITALS: BP 137/86; PULSE 78; RESP 18; TEMP 36.3; O2SAT 100; BMI 25.7
[2021-12-10 05:50] VITALS: BP 116/69; PULSE 71; RESP 18; TEMP 36.5; O2SAT 99
[2021-12-10 06:13] LABS: Appearance Urine CLEAR; Color Urine YELLOW; Glucose Urine UA NEG (NEG); Leukocyte Esterase Urine NEG (NEG); Nitrite Urine NEG (NEG); Specific Gravity - Urine 1.025 (1.005-1.025); Urine Blood NEG (NEG); Urine Ketones NEG (NEG); Urine Protein NEG (NEG-TRACE)
--- NOTE | 2021-12-10 07:09 | ED.DENTAL ---
HPI - Dental/Oral General Chief complaint: Dental/Oral Stated complaint: dental pain, lower back pain Time Seen by Provider: 12/10/21 06:56 Source: patient Mode of arrival: ambulatory History of Present Illness HPI Narrative: 31-year-old male who states he was of previous methamphetamine user presents with right lower tooth pain that he states extends into his jaw without fevers or chills and also states that he slipped on the ice and fell on his rear end without hitting his head or any loss of consciousness. Related Data Previous Rx's Medication Instructions Recorded acetaminophen 300 mg-codeine 30 mg 1 tab PO Q8H PRN #10 tab 06/20/21 tablet ibuprofen 800 mg tablet 800 mg PO Q8H PRN #14 tab 06/20/21 albuterol sulfate 90 mcg/actuation 2 puff INHALATION Q4-6H PRN #8.5 g 08/19/21 aerosol inhaler (ProAir HFA) codeine 10 mg-guaifenesin 100 mg/5 10 ml PO Q4-6H PRN #237 ml 08/19/21 mL oral liquid levofloxacin 750 mg tablet 750 mg PO DAILY 7 Days #7 tab 08/19/21 prednisone 20 mg tablet 40 mg PO DAILY #10 tab 08/19/21 clindamycin HCl 300 mg capsule 300 mg PO Q6H 5 Days #20 cap 12/10/21 Allergies Allergy/AdvReac Type Severity Reaction Status Date / Time aspirin [ASA] Allergy Unknown HIVES Verified 12/10/21 02:12 penicillin G [PENICILLIN G] Allergy Unknown HIVES Verified 12/10/21 02:12 shrimp Allergy Unknown THROAT AND Verified 12/10/21 02:12 MOUTH SWELLING Review of Systems Review of Systems: Pertinent positives and negatives as stated in HPI and 10 point review of systems is otherwise negative. [facility] Past Medical History Source: nursing notes reviewed Medical History Asthma Social History Social History Patient Tobacco Use Status: Current everyday Tobacco user Advance Directives: No Advance Directives Information Provided: Yes Physical Exam Vital Signs: Vital Signs: Last Vital Signs Temp 97.7 F 12/10/21 05:50 Pulse 71 12/10/21 05:50 Resp 18 02/09/22 05:50 BP 116/69 12/10/21 05:50 Pulse Ox 99 12/10/21 05:50 BMI result Body Mass Index 25.7 VITAL SIGNS: Reviewed. GENERAL: Well developed, well nourished, in no acute distress. HEAD: Normocephalic/atraumatic EYES: PERRLA, EOMI OROPHARYNX: no oral lesions noted, posterior pharynx clear LUNGS: Normal breath sounds. No adventitious sounds or accessory muscle use. SpO2<99> CARDIOVASCULAR: Regular rate and rhythm without noted murmurs ABDOMEN: Soft, non-tender, non-distended with bowel sounds. NEUROLOGIC: Alert and oriented x 4. Course Course Course Narrative: 31-year-old male with history and clinical presentation consistent with extremely poor dentition in numerous dental caries. Noted right lower molar that has partially rotted away and patient will be placed on antibiotics and was instructed to follow-up with a dentist. X-rays were obtained of his left knee which does not have any swelling or erythema and these imaging studies are negative for any acute findings. Patient was otherwise discharged home is stable condition MDM - Dental/Oral Lab Data Labs: Lab Results 12/10/21 Range/Units 06:06 Urine Color YELLOW Urine Appearance CLEAR Urine pH 6.0 (5.0-8.0) Ur Specific [place] 1.025 (1.005-1.025) Urine Protein NEG (NEG-TRACE) MG/DL Urine Glucose (UA) NEG (NEG) MG/DL Urine Ketones NEG (NEG) MG/DL Urine Blood NEG (NEG) Urine Nitrite NEG (NEG) Ur Leukocyte Esterase NEG (NEG) Discharge Plan Discharge Clinical Impression: Toothache, Dental caries, Gingivitis Patient Disposition: Home, Self-Care Instructions: Gingivitis (ED), Toothache (ED), Periodontal Disease (DC) Additional Instructions: Follow-up with a dentist by calling the office today. Complete the entire course of antibiotics that you have been prescribed. Recommend using [id number] Tylenol/ibuprofen as needed for pain control. Return to the ER for worsening symptoms. Prescriptions: New clindamycin HCl 300 mg capsule 300 mg PO Q6H 5 Days Qty: 20 0RF No Action ibuprofen 800 mg tablet 800 mg PO Q8H PRN (Reason: pain) Qty: 14 0RF acetaminophen-codeine 300-30 mg tablet 1 tab PO Q8H PRN (Reason: pain) Qty: 10 0RF levofloxacin 750 mg tablet 750 mg PO DAILY 7 Days Qty: 7 0RF prednisone 20 mg tablet 40 mg PO DAILY Qty: 10 0RF codeine-guaifenesin 10-100 mg/5 mL liquid 10 ml PO Q4-6H PRN (Reason: cough) Qty: 237 0RF albuterol sulfate [ProAir HFA] 90 mcg/actuation HFA aerosol inhaler 2 puff inhalation Q4-6H PRN (Reason: Wheezing) Qty: 8.5 0RF Referrals: [facility] [Primary Care Provider] - 2 days
[2021-12-10 07:10] VITALS: BP 112/57; PULSE 73; RESP 13; TEMP 36.5; O2SAT 98
[2021-12-10] MEDS: Ketorolac Tromethamine 30 MG/ML VIAL 15 MG IM (07:52)
[2021-12-10] MEDS: Acetaminophen 325 MG TABLET 975 MG PO (07:53)
[2021-12-10 08:08] LABS: Amphetamine Screen Urine Not Detected (Not Detect); Barbiturates, Urine Not Detected (Not Detect); Benzodiazepines Screen Urine Not Detected (Not Detect); Cannabinoid Screen Urine Not Detected (Not Detect); Cocaine Screen Urine POSITIVE (Not Detect); Fentanyl, urine Not Detected (Not Detect); Opiate Screen Urine POSITIVE (Not Detect); Phencyclidine Screen Urine Not Detected (Not Detect)
== END 2021-12-10 08:07 | disposition home or self-care (01) ==
PROVIDERS: Emergency Provider Student in an Organized Health Care Education/Training Program
DX: K08.89 Other specified disorders of teeth and supporting structures (principal); K02.9 Dental caries, unspecified; K05.10 Chronic gingivitis, plaque induced; M54.50 Low back pain, unspecified; F17.200 Nicotine dependence, unspecified, uncomplicated
CPT/HCPCS: 73562; 80307; 81003; 96372; 99284; J1885

== ENCOUNTER 2021-12-18 08:26 | Emergency (ER) | payer MEDICAID, SELFPAY ==
[2021-12-18 08:36] VITALS: BP 134/55; PULSE 75; RESP 19; TEMP 37.2; O2SAT 99; BMI 24.4
[2021-12-18 09:05] LABS: COVID-19 Test Negative (Negative)
--- NOTE | 2021-12-18 09:45 | ED_ITS ---
HPI - General Adult General Chief complaint: Fever Stated complaint: headache, nausea, diarrhea Time Seen by Provider: 12/18/21 09:24 Source: patient Mode of arrival: ambulatory Limitations: no limitations History of Present Illness HPI narrative: 31-year-old male presents to the ED for headache, nausea, diarrhea, fever, and runny nose since last night. Patient states exposure to co-worker was positive for COVID. She denies any coughing, chest pain, or shortness of breath. Patient states he is not vaccinated against COVID. Related Data Previous Rx's Medication Instructions Recorded acetaminophen 300 mg-codeine 30 mg 1 tab PO Q8H PRN #10 tab 06/20/21 tablet ibuprofen 800 mg tablet 800 mg PO Q8H PRN #14 tab 06/20/21 albuterol sulfate 90 mcg/actuation 2 puff INHALATION Q4-6H PRN #8.5 g 08/19/21 aerosol inhaler (ProAir HFA) codeine 10 mg-guaifenesin 100 mg/5 10 ml PO Q4-6H PRN #237 ml 08/19/21 mL oral liquid levofloxacin 750 mg tablet 750 mg PO DAILY 7 Days #7 tab 08/19/21 prednisone 20 mg tablet 40 mg PO DAILY #10 tab 08/19/21 clindamycin HCl 300 mg capsule 300 mg PO Q6H 5 Days #20 cap 12/10/21 Allergies Allergy/AdvReac Type Severity Reaction Status Date / Time aspirin [ASA] Allergy Unknown HIVES Verified 12/10/21 02:12 penicillin G [PENICILLIN G] Allergy Unknown HIVES Verified 12/10/21 02:12 shrimp Allergy Unknown THROAT AND Verified 12/10/21 02:12 MOUTH SWELLING Review of Systems Review of Systems: Fever, diarrhea, runny nose, body aches, chills Yes all other systems are reviewed and are negative PMFSH Past Medical History Medical History Asthma Social History Social History Patient Tobacco Use Status: Current everyday Tobacco user Advance Directives: No Advance Directives Information Provided: No Physical Exam ED Vital Signs: Vital Signs - 24 hr 12/18/21 08:36 Temperature 99 F Pulse Rate 75 Respiratory Rate 19 Blood Pressure 134/55 L Pulse Oximetry 99 BMI result Body Mass Index 24.4 Const General: cooperative, healthy appearing, comfortable, no acute distress, well developed, alert, awake and Physically active Orientation/consciousness: patient oriented x3 [facility] Head: Yes normal to inspection, Yes No palpable skull fracture present, Yes normocephalic and Yes atraumatic Ears: hearing grossly normal bilaterally, external ears normal, TM's normal bilaterally, mastoids normal, no periauricular adenopathy and Abnormal EAC present General nose exam: Normal external nose present and Normal nares present Face and sinus: Yes normal facial exam and Yes sinuses nontender Throat: Yes posterior oropharynx normal, Yes tonsils normal and Yes uvula midline Eyes General: appearance normal, both eyes and all related structures Neck Neck: Yes normal visual inspection, Yes full ROM, Yes no lymphadenopathy, Yes no meningeal signs, Yes trachea midline, Yes supple, No anterior neck swelling and No tender Chest Chest palpation & inspection: normal inspection of the chest and normal palpation of entire chest wall Resp Effort & Inspection: normal respiratory effort and able to speak in complete sentences Auscultation: clear to auscultation bilaterally Cardio Jugular venous distension: no JVD Heart sounds: S1 normal heart sound present and S2 normal heart sound present GI Inspection: Yes normal to inspection and No abdominal wall ecchymosis Palpation (GI): Soft to palpation, not firm, nontender, no guarding and not rigid General: No CVA tenderness and Yes no CVA tenderness Back/Spine/Pelvis Back: no CVA tenderness, No CVA tenderness and No back tenderness Skin General skin exam: no rashes or lesions noted and elasticity normal Neuro General: patient oriented x3, gait normal, moves all extremities and no meningeal signs Cranial nerves: Yes CN's II-XII intact bilaterally Extrem General: Yes normal to inspection and Yes full ROM Psych Appearance: grossly normal, well kempt and not disheveled Course Course Course Narrative: COVID test ordered Reevaluation(s) Reevaluation #1: COVID test negative. Patient informed this may be false negative due to him being tested early in symptoms and recent exposure. Patient informed to get retested in 5 days Time: 09:49 Medical Decision Making MDM Narrative Medical decision making narrative: Viral syndrome Lab Data Labs: Lab Results 12/18/21 Range/Units 08:41 COVID-19 ([facility]) Negative (Negative) COVID-19 Clin Com See Note Discharge Plan Discharge Clinical Impression: Acute viral syndrome Patient Disposition: Home, Self-Care Instructions: Viral Syndrome (ED) Additional Instructions: Your COVID test came back negative. This may be a false negative. You will need to be retested in 5 days. Return to the ED for chest pain, shortness of breath, weakness, dizziness, coughing up blood, abdominal pain, inability to tolerate solid food/liquid, intractable vomiting/diarrhea, or any other concerning symptoms. Please follow-up with primary care provider Prescriptions: No Action ibuprofen 800 mg tablet 800 mg PO Q8H PRN (Reason: pain) Qty: 14 0RF acetaminophen-codeine 300-30 mg tablet 1 tab PO Q8H PRN (Reason: pain) Qty: 10 0RF levofloxacin 750 mg tablet 750 mg PO DAILY 7 Days Qty: 7 0RF prednisone 20 mg tablet 40 mg PO DAILY Qty: 10 0RF codeine-guaifenesin 10-100 mg/5 mL liquid 10 ml PO Q4-6H PRN (Reason: cough) Qty: 237 0RF albuterol sulfate [ProAir HFA] 90 mcg/actuation HFA aerosol inhaler 2 puff inhalation Q4-6H PRN (Reason: Wheezing) Qty: 8.5 0RF clindamycin HCl 300 mg capsule 300 mg PO Q6H 5 Days Qty: 20 0RF Stand Alone Forms: Work/School Release Interventions: ED Discharge Assessment Last Done: 12/18/21 10:01 Discharge Date/Time: 12/18/21 10:03 Print Language: Hungarian
== END 2021-12-18 10:03 | disposition home or self-care (01) ==
PROVIDERS: Emergency Provider Emergency Medicine
DX: B34.9 Viral infection, unspecified (principal); Z20.822 Contact with and (suspected) exposure to COVID-19; R50.9 Fever, unspecified
CPT/HCPCS: 87635; 99283

== ENCOUNTER 2022-07-23 19:36 | Emergency (ER) | payer MEDICAID, SELFPAY ==
--- NOTE | ~2022-07-23 | CT_ITS ---
EXAMINATION: CT ABDOMEN AND PELVIS WITH CONTRAST CLINICAL INFORMATION: Left lower quadrant/suprapubic pain. COMPARISON: 12/28/2012 TECHNIQUE: Multidetector volumetric images were obtained from the superior aspect of the liver through the pubic symphysis following administration 85 mL of Omnipaque 350 intravenous contrast. Sagittal and coronal reformatted images were obtained on the technologist's workstation. Oral contrast: No This CT examination was performed using dose optimization techniques as appropriate, variously including the following: *Automated exposure control *Adjustment of mA and/or kV according to patient size (this includes techniques or standardized protocols for targeted exams where dose is matched to indication/reason for exam; i.e. extremities or head) *Use of iterative reconstruction technique DLP: 441 mGy-cm FINDINGS: LUNG BASES: The visualized lung bases are unremarkable. LIVER, GALLBLADDER, AND BILIARY TREE: The liver is normal in size, shape, and attenuation. No focal hepatic lesion or biliary ductal dilatation is present. The gallbladder is unremarkable with no evidence of radiopaque gallstones, gallbladder wall thickening, or obvious pericholecystic inflammatory changes. PANCREAS: Unremarkable. SPLEEN: Unremarkable. ADRENAL GLANDS: Unremarkable. KIDNEYS AND URETERS: The kidneys are normal in size, shape, and attenuation. No hydronephrosis, hydroureter, or calculi seen. No perinephric stranding. BLADDER: Unremarkable. GASTROINTESTINAL TRACT: The stomach is unremarkable. Normal caliber small bowel. There is no obstruction. Mild wall thickening of the distal ileum in the pelvis extending to the terminal ileum. Mild inflammation of the fat. No colonic wall thickening. No free air. No fluid collection. ABDOMINAL WALL: No significant hernia is appreciated. LYMPH NODES: Normal. VASCULAR: Unremarkable. PELVIC VISCERA: The prostate and seminal vesicles are unremarkable. OSSEOUS STRUCTURES: No acute or suspicious osseous abnormality. CT/CT abdomen pelvis w IV con IMPRESSION: Mild wall thickening of the distal ileum with adjacent inflammation of the fat suggestive of enteritis. No fluid collection identified. Fleischner guidelines were followed.
[2022-07-23 19:57] VITALS: BP 127/79; PULSE 74; RESP 18; TEMP 36.7; O2SAT 100; BMI 23.3
[2022-07-23 21:17] LABS: MANUAL DIFF FLAG NO
[2022-07-23 21:19] LABS: Basophils Percent Auto 0.7 % (0-2); Eosinophils Absolute Auto 0.1 X10*3/uL (0.0-0.4); Eosinophils Percent Auto 1.8 % (0-4); Hematocrit 39.8 % (42.0-52.0); Hemoglobin 13.7 g/dl (14.0-18.0); Imm Gran Abs Auto 0.02 X10*3/uL (0.00-0.03); Imm Gran Pct Auto 0.3 % (0.0-0.4); Mean Corpuscular HGB Conc 34.4 g/dl (31.0-36.0); Mean Corpuscular Hemoglobin 31.1 pg (27.0-33.0); Mean Corpuscular Volume 90.5 fL (80.0-98.0); Mean Platelet Volume 9.4 fL (9.4-12.4); Monocytes Absolute Auto 0.5 X10*3/uL (0.1-1.2); Monocytes Percent Auto 8.8 % (2-11); Neutrophils Absolute Auto 2.5 x10*3/uL (2.0-8.3); Neutrophils Percent Auto 40.4 % (45-73); Platelet Count 313 X10*3/uL (160-400); Red Cell Distribution Width 13.2 % (11.0-16.0); White Blood Count 6.2 X10*3/uL (4.8-10.8)
[2022-07-23 21:20] LABS: Appearance Urine Clear; Color Urine Yellow; Glucose Urine UA Negative (Negative); Leukocyte Esterase Urine Negative (Negative); Nitrite Urine Negative (Negative); PH 5.5 (5.0-9.0); Specific Gravity - Urine 1.025 (1.005-1.025); Urine Blood Negative (Negative); Urine Ketones Negative (Negative); Urine Protein Negative (Neg-Trace)
[2022-07-23 21:37] LABS: Alanine Aminotransferase 16 U/L (0-40); Albumin Level 4.6 g/dL (3.5-5.0); Alkaline Phosphatase 58 U/L (39-117); Anion Gap 15 (12-20); Aspartate Amino Transferase 13 U/L (5-37); Bilirubin Direct 0.2 mg/dL (0.0-0.5); Bilirubin Total 0.5 mg/dL (0.0-1.0); Blood Urea Nitrogen 12 mg/dL (9-16); Calcium 9.7 mg/dL (8.4-10.2); Carbon Dioxide 28 mmol/L (22-29); Chloride 104 mmol/L (96-108); Creatinine Clr Calc Pharmacy 144.5; Estimated Glomerular Filt Rate > 60; Glucose Random 74 mg/dL (60-115); Lipase 44 U/L (8-78); Potassium 4.3 mmol/L (3.3-5.1); Sodium 143 mmol/L (135-145); Total Protein 7.5 g/dL (6.5-8.0)
[2022-07-23 22:52] VITALS: BP 115/64; PULSE 66; RESP 14; TEMP 37.3; O2SAT 100
[2022-07-24 02:00] VITALS: BP 124/68; PULSE 62; TEMP 36.7; O2SAT 100
[2022-07-24 03:59] VITALS: BP 127/72; PULSE 64; O2SAT 100
--- NOTE | 2022-07-24 04:41 | ED.ABDPAIN ---
HPI - Abdominal Pain General Chief Complaint: Abdominal Pain Stated Complaint: Pressure and pain when urinating/post op Time Seen by Provider: 07/24/22 04:14 Source: patient Mode of arrival: ambulatory Limitations: language barrier (The patient does speak Danish, his 1st language is Nepalese, retail service specialist was used) History of Present Illness HPI narrative: 32-year-old male who presents emergency department for evaluation of abdominal pain 1 week after appendectomy revision surgery. The patient states that in May 2022 he had abdominal pain and was seen multiple times at a hospital in [place]. On his 3rd visit he was diagnosed with appendicitis and had a surgery. States that since that time he has been having persistent right lower quadrant pain. On 07/14/2022 who was seen at [facility] was diagnosed with appendicitis, the patient states that 1-1/2 inches of appendix was left inside a and this was believed to be the cause for his pain. The patient states that since the surgery his right lower quadrant pain is improved however he has now developed suprapubic pain and left lower quadrant pain. He also has pain in both testicles. He has burning with urination and pressure with urination. He is sexually active, has 1 partner in last had intercourse 1 month prior, he denies any penile discharge. He states the pain is a constant, pressure-like pain any points to his umbilical, left lower quadrant and suprapubic area. The pain does radiate to his testicles bilaterally. States the pain is 8/10 at its worst. The patient had chills but no fever. He denied nausea or vomiting. He denied chest pain or shortness of breath. He states that he has had 7 loose watery stools per day since having the surgery. Patient was discharged home with prescriptions for oxycodone (12 tablets) ciprofloxacin twice a day for 5 days and Flagyl for 5 days. MD elicited complaint: abdominal pain Pertinent past history: other (Appendectomy 05/17/2022 and revision 07/14/2022 for remnant) Onset (ago): week(s) (1) Pain Consistency: constant Location: periumbilical, LLQ and suprapubic Severity: severe Pain scale (0-10): 8 Quality: sharp Radiation: none Migration to: no migration Exacerbating factors: nothing Relieving factors: nothing Associated symptoms: chills and dysuria Related Data Previous Rx's Medication Instructions Recorded acetaminophen 300 mg-codeine 30 mg 1 tab PO Q8H PRN pain #10 tabs 06/20/21 tablet ibuprofen 800 mg tablet 800 mg PO Q8H PRN pain #14 tabs 06/20/21 albuterol sulfate 90 mcg/actuation 2 puff inhalation Q4-6H PRN 08/19/21 aerosol inhaler (ProAir HFA) Wheezing #8.5 grams codeine 10 mg-guaifenesin 100 mg/5 10 ml PO Q4-6H PRN cough #237 mL 08/19/21 mL oral liquid levofloxacin 750 mg tablet 750 mg PO DAILY 7 days #7 tabs 08/19/21 prednisone 20 mg tablet 40 mg PO DAILY #10 tabs 08/19/21 clindamycin HCl 300 mg capsule 300 mg PO Q6H 5 days #20 caps 12/10/21 amoxicillin 875 mg-potassium 1 tab PO Q12H 7 days #14 tabs 07/24/22 clavulanate 125 mg tablet ondansetron 4 mg disintegrating 4 mg PO Q6-8H PRN nausea and 07/24/22 tablet vomiting #14 tabs oxycodone 5 mg tablet 5 mg PO Q4H PRN pain #14 tabs 07/24/22 Allergies Allergy/AdvReac Type Severity Reaction Status Date / Time aspirin [ASA] Allergy Unknown HIVES Verified 12/10/21 02:12 penicillin G [PENICILLIN G] Allergy Unknown HIVES Verified 12/10/21 02:12 shrimp Allergy Unknown THROAT AND Verified 12/10/21 02:12 MOUTH SWELLING Review of Systems Review of Systems Yes all other systems are reviewed and are negative [facility] Past Medical History [facility] Narrative: Past medical history: None. Past surgical history: Appendicitis/appendectomy 05/17/2022 with remnant appendix with revision appendectomy at [facility]. Social history: The patient states he is . He denies tobacco use. Denies alcohol use. He states that he occasionally smokes marijuana but has not smoked marijuana in over 1 month. Medical History Asthma Social History Social History Patient Tobacco Use Status: Current everyday Tobacco user Advance Directives: No Physical Exam ED Vital Signs: Vital Signs - 24 hr 07/23/22 19:57 07/23/22 22:52 07/24/22 02:00 Temperature 98.0 F 99.1 F 98.1 F Pulse Rate 74 66 62 Respiratory Rate 18 14 Blood Pressure 127/79 115/64 124/68 Pulse Oximetry 100 100 100 Oxygen Delivery Method Room Air Room Air Room Air 07/24/22 03:59 07/24/22 06:00 Temperature Pulse Rate 64 63 Respiratory Rate Blood Pressure 127/72 112/57 L Pulse Oximetry 100 99 Oxygen Delivery Method Room Air Room Air BMI result Body Mass Index 23.3 Const General: cooperative and no acute distress Orientation/consciousness: oriented to person and oriented to place Limitations: no limitations HENMT Head: Yes normal to inspection, Yes normocephalic and Yes atraumatic Ears: external ears normal General nose exam: Normal external nose present Face and sinus: Yes normal facial exam Mouth: Normal oral and palatal mucosa present Throat: Yes posterior oropharynx normal Eyes General: appearance normal, both eyes and all related structures Pupils: Equal, round and reactive pupils present Neck Neck: Yes normal visual inspection, Yes no lymphadenopathy, Yes trachea midline and Yes supple Chest Chest palpation & inspection: normal inspection of the chest and normal palpation of entire chest wall Resp Effort & Inspection: normal respiratory effort and able to speak in complete sentences Auscultation: clear to auscultation bilaterally Cardio Rate: regular rate Rhythm: regular rhythm Heart sounds: S1 normal heart sound present, S2 normal heart sound present and no murmurs GI Inspection: Yes normal to inspection Palpation (GI): Soft to palpation, Tenderness to palpation present (GI) in the LLQ (Moderate), periumbilically (Moderate) and suprapubicly (Moderate) and no guarding Auscultation: normal bowel sounds Other: Uncircumcised male penis, no lesions noted on the penis, no urethral discharge, testicles are both descended, nontender, normal sinus, scrotum skin normal. l General: Yes no CVA tenderness Back/Spine/Pelvis Back: no CVA tenderness Skin General skin exam: no rashes or lesions noted Neuro General: oriented to person and oriented to place Cranial nerves: Yes CN's II-XII intact bilaterally and Yes Equal, round and reactive pupils present Cognition (Neuro): normal cognition Motor exam (neuro): 5 motor strength present throughout Extrem General: Yes normal to inspection Psych Appearance: grossly normal Speech and movement: Normal speech and movement present Affect: normal affect Attitude: cooperative Thought process: Normal thought process present Thought content: Normal thought content present Course Course Course Narrative: 32-year-old male who had appendicitis 05/17/2022 status post appendectomy who continued to have pain, seen at [facility] on 07/14/2022 with appendicitis of appendix remnant status post appendectomy. Since the patient's surgery approximately 10 days prior he has continued to have abdominal pain but now the pain is located in the left lower quadrant, suprapubic and umbilical area with pain radiating to both testicles. He has also had pressure with urination and dysuria. He has had subjective fever and diarrhea daily. He has completed a 5 day course of ciprofloxacin and metronidazole. Physical examination revealed that he was afebrile with otherwise normal vital signs. Patient has moderate tenderness in his umbilical, suprapubic and left lower quadrant areas. Patient's exam was normal. Patient's laboratory evaluation included a CBC, CMP and lipase, these tests were normal. Urinalysis was negative. At this time I do not have a clear etiology for the patient's pain but I will obtain a CT scan of the abdomen pelvis with IV contrast to rule out the possibility a postsurgical abscess pain. I will also obtain a urine for gonorrhea and chlamydia testing. 0638: CT scan of the abdomen pelvis with IV contrast did reveal distal and terminal ileal inflammatory changes with wall thickening consistent with ileitis. I did discuss this with the patient and this may be the cause of his pain. He does feel better with the above treatment. The patient was started on Augmentin 875 q.12 hours x7 days, Zofran 4 mg ODT every 6 hours and Tylenol. He was also prescribed oxycodone for pain not relieved by Tylenol. Patient was given printed and verbal instructions discharged home. He was advised to follow-up with his surgeon at [facility] for re-evaluation within 3-4 days. MDM - Abdominal Pain Lab Data Result diagrams: 07/23/22 21:08 07/23/22 21:08 Labs: Lab Results 07/23/22 07/23/22 07/23/22 Range/Units 21:08 21:08 21:08 WBC 6.2 (4.8-10.8) X10*3/uL RBC 4.40 L (4.60-5.80) X10*6/uL Hgb 13.7 L (14.0-18.0) g/dl Hct 39.8 L (42.0-52.0) % MCV 90.5 (80.0-98.0) fL MCH 31.1 (27.0-33.0) pg MCHC 34.4 (31.0-36.0) g/dl RDW 13.2 (11.0-16.0) % Plt Count 313 (160-400) X10*3/uL MPV 9.4 (9.4-12.4) fL Immature Gran % (Auto) 0.3 (0.0-0.4) % Neut % (Auto) 40.4 L (45-73) % Lymph % (Auto) 48.0 H (20-40) % [place] % (Auto) 8.8 (2-11) % Eos % (Auto) 1.8 (0-4) % Baso % (Auto) 0.7 (0-2) % Lymph # (Auto) 3.0 (1.2-4.9) X10*3/uL [place] # (Auto) 0.5 (0.1-1.2) X10*3/uL Eos # (Auto) 0.1 (0.0-0.4) X10*3/uL Baso # (Auto) 0.0 (0.0-0.2) X10*3/uL Abs Immat Gran (auto) 0.02 (0.00-0.03) X10*3/uL Absolute Neuts (auto) 2.5 (2.0-8.3) x10*3/uL Absolute Nucleated RBC 0.000 (0.0-0.012) X10*3/uL Nucleated RBC % (auto) 0.0 (0.0-0.2) /100WBC Sodium 143 (135-145) mmol/L Potassium 4.3 (3.3-5.1) mmol/L Chloride 104 (96-108) mmol/L Carbon Dioxide 28 (22-29) mmol/L Anion Gap 15 (12-20) BUN 12 (9-16) mg/dL Creatinine 0.82 (0.5-1.4) mg/dL Estim Creat Clear Calc 144.5 Estimated GFR > 60 Random Glucose 74 (60-115) mg/dL Calcium 9.7 (8.4-10.2) mg/dL Total Bilirubin 0.5 (0.0-1.0) mg/dL Direct Bilirubin 0.2 (0.0-0.5) mg/dL AST 13 (5-37) U/L ALT 16 (0-40) U/L Alkaline Phosphatase 58 (39-117) U/L Total Protein 7.5 (6.5-8.0) g/dL Albumin 4.6 (3.5-5.0) g/dL Lipase 44 (8-78) U/L Urine Color Yellow Urine Appearance Clear Urine pH 5.5 (5.0-9.0) Ur Specific [place] 1.025 (1.005-1.025) Urine Protein Negative (Neg-Trace) mg/dL Urine Glucose (UA) Negative (Negative) mg/dL Urine Ketones Negative (Negative) mg/dL Urine Blood Negative (Negative) Urine Nitrite Negative (Negative) Ur Leukocyte Esterase Negative (Negative) Discharge Plan Discharge Clinical Impression: Ileitis, terminal Qualifiers: Digestive disease complication type: without complication Qualified Code(s): K50.00 - Crohn's disease of small intestine without complications Patient Disposition: Home, Self-Care Additional Instructions: Your blood work was unremarkable. Your urine test was unremarkable. The CT scan of your abdomen pelvis with IV contrast did reveal inflammation of the distal and terminal ileum (this is the small bowel that attaches to the large-bowel). There was no evidence of an abscess or fluid collection in your belly related to the surgery. Ileitis is treated with antibiotics and pain medications. Take Augmentin (amoxicillin/clavulanic acid) 875 mg/125 mg, 1 pill every 12 hours x7 days. Take ibuprofen 200 mg pills, 3 pills every 6 hours as needed for pain. Take Tylenol (acetaminophen) 500 mg pills, 2 pills every 4-6 hours as needed for pain. For pain not relieved by ibuprofen or Tylenol take oxycodone 5 mg pills, 1 pill every 4 hours as needed for pain. Do not drive or work while taking this medication since they can cause sleepiness. Oxycodone is a narcotic medication that can be addicting. If you are concerned about addiction you can ask the pharmacist for less pills or do not get this prescription filled. Take Zofran ODT 4 mg pills, 1 pill dissolved in your mouth every 8 hours as needed for nausea and vomiting. Follow-up with your doctor in 2 days. Please return to the emergency department if your symptoms get worse or if you develop any symptoms that are concerning to you. Prescriptions: New amoxicillin-pot clavulanate 875-125 mg tablet 1 tab PO Q12H 7 Days Qty: 14 0RF oxycodone 5 mg tablet 5 mg PO Q4H PRN (Reason: pain) Qty: 14 0RF Rx Instructions: Patient may request partial fill; Partial Fill upon patient request. ondansetron 4 mg tablet,disintegrating 4 mg PO Q6-8H PRN (Reason: nausea and vomiting) Qty: 14 0RF No Action ibuprofen 800 mg tablet 800 mg PO Q8H PRN (Reason: pain) Qty: 14 0RF acetaminophen-codeine 300-30 mg tablet 1 tab PO Q8H PRN (Reason: pain) Qty: 10 0RF levofloxacin 750 mg tablet 750 mg PO DAILY 7 Days Qty: 7 0RF prednisone 20 mg tablet 40 mg PO DAILY Qty: 10 0RF codeine-guaifenesin 10-100 mg/5 mL liquid 10 ml PO Q4-6H PRN (Reason: cough) Qty: 237 0RF albuterol sulfate [ProAir HFA] 90 mcg/actuation HFA aerosol inhaler 2 puff inhalation Q4-6H PRN (Reason: Wheezing) Qty: 8.5 0RF clindamycin HCl 300 mg capsule 300 mg PO Q6H 5 Days Qty: 20 0RF
[2022-07-24 06:00] VITALS: BP 112/57; PULSE 63; O2SAT 99
[2022-07-24] MEDS: iohexoL 350 MG/ML 100 ML INFUS..BTL 85 ML IV (06:02)
[2022-07-24] MEDS: ondansetron HCL 4 MG/2 ML VIAL IVPUSH (06:14)
[2022-07-24] MEDS: Ketorolac Tromethamine 15 MG/ML VIAL IVPUSH (06:14)
[2022-07-24] MEDS: 0.9 % Sodium Chloride 1,000 ML 999 ML IV (06:15)
[2022-07-24 09:23] VITALS: BP 119/57; PULSE 62; RESP 16; TEMP 36.6; O2SAT 99
--- NOTE | 2022-07-24 09:25 | PC.NURSE ---
patient a/ox4 . reports no pain at this time prior to discharge . went over discharge instructions as ordered by provider . patient to follow up with primary care and take medication as ordered . patient to return to ED if symptoms return or worsen . no questions at this time .
[2022-07-24 09:49] LABS: CT PCR NOT DETECTED (Not Detect.); NG PCR NOT DETECTED (Not Detect.)
== END 2022-07-24 09:27 | disposition home or self-care (01) ==
PROVIDERS: Emergency Provider Emergency Medicine Emergency Medical Services
DX: K50.00 Crohn's disease of small intestine without complications (principal); F17.200 Nicotine dependence, unspecified, uncomplicated
CPT/HCPCS: 36415; 74177; 80053; 81003; 82248; 83690; 85025; 87491; 87591; 96374; 96375; 99284; J1885; J2405; Q9967

== ENCOUNTER 2022-09-15 04:38 | Emergency (ER) | payer MEDICAID, SELFPAY ==
--- NOTE | ~2022-09-15 | CT_ITS ---
EXAMINATION: CT ABDOMEN AND PELVIS WITH CONTRAST CLINICAL INFORMATION: Abdominal pain COMPARISON: Previous CT of the abdomen and pelvis most recent July 2022 TECHNIQUE: Multidetector volumetric images were obtained from the superior aspect of the liver through the pubic symphysis following administration 85 mL of Omnipaque 350 intravenous contrast. Sagittal and coronal reformatted images were obtained on the technologist's workstation. Oral contrast: Yes This CT examination was performed using dose optimization techniques as appropriate, variously including the following: *Automated exposure control *Adjustment of mA and/or kV according to patient size (this includes techniques or standardized protocols for targeted exams where dose is matched to indication/reason for exam; i.e. extremities or head) *Use of iterative reconstruction technique DLP: 270 mGy-cm FINDINGS: LUNG BASES: The visualized lung bases are unremarkable. LIVER, GALLBLADDER, AND BILIARY TREE: The liver is upper normal in size and slightly low in attenuation suggestive of mild fatty infiltration. No focal hepatic lesion or biliary ductal dilatation is present. The gallbladder is unremarkable with no evidence of radiopaque gallstones, gallbladder wall thickening, or obvious pericholecystic inflammatory changes. PANCREAS: Unremarkable. SPLEEN: The spleen is enlarged and measures 14.5 cm in length. ADRENAL GLANDS: Unremarkable. KIDNEYS AND URETERS: The kidneys are normal in size, shape, and attenuation. No hydronephrosis, hydroureter, or calculi seen. No perinephric stranding. BLADDER: The bladder is not optimally distended. There is diffuse bladder wall thickening. There is a 1.4 cm slightly thick-walled cystic area adjacent to the left anterior lateral wall of the pelvis axial image 70 series 3. It is uncertain whether this is related to a loop of small bowel or could represent a small abscess. Does not appear to connect with the bladder to suggest a bladder diverticulum. GASTROINTESTINAL TRACT: There is stool throughout the colon suggestive of constipation. Small and large bowel is otherwise unremarkable. The appendix is not seen and may have been removed. The stomach is unremarkable. No ascites. No free air. Wall thickening in the terminal ileum no longer seen. ABDOMINAL WALL: No significant hernia is appreciated. LYMPH NODES: Normal. VASCULAR: Unremarkable. PELVIC VISCERA: Unremarkable. OSSEOUS STRUCTURES: Unremarkable. CT/CT abdomen pelvis w IV con IMPRESSION: Constipation. Diffuse bladder wall thickening. This is new from July 2022 exam and cystitis should be considered. Correlation with urinalysis and culture recommended. This small 1.4 cm thick-walled cystic area or fluid collection adjacent to the left anterior bladder wall, questionable for a tiny abscess versus loop of small bowel. Wall thickening of the terminal ileum no longer seen/appears improved. Enlarged spleen. Upper normal-size fatty liver. Fleischner guidelines were followed.
--- NOTE | ~2022-09-15 | XR_ITS ---
EXAMINATION: XR ABDOMEN KUB CLINICAL INDICATION: Abdominal pain COMPARISON: 07/24/2022 TECHNIQUE: AP view of the abdomen. FINDINGS: Normal bowel gas pattern. No dilated loops of bowel. Gas and stool throughout the colon with mild to moderate colonic stool burden. The lung bases are clear. No suspicious calcification. No acute osseous abnormality. There are 2 surgical clips over the right lower quadrant of the abdomen. XR/XR abdomen 1V IMPRESSION: Nonobstructive bowel gas pattern. Mild to moderate colonic stool burden.
[2022-09-15 04:50] VITALS: BP 108/68; PULSE 64; RESP 15; TEMP 36.7; O2SAT 100; BMI 23.6
[2022-09-15 05:05] LABS: Basophils Percent Auto 0.5 % (0-2); Eosinophils Absolute Auto 0.1 X10*3/uL (0.0-0.4); Eosinophils Percent Auto 2.4 % (0-4); Hematocrit 43.4 % (42.0-52.0); Hemoglobin 15.1 g/dl (14.0-18.0); Imm Gran Abs Auto 0.01 X10*3/uL (0.00-0.03); Imm Gran Pct Auto 0.2 % (0.0-0.4); Lymphocytes Absolute Auto 2.5 X10*3/uL (1.2-4.9); Lymphocytes Percent Auto 44.5 % (20-40); MANUAL DIFF FLAG NO; Mean Corpuscular HGB Conc 34.8 g/dl (31.0-36.0); Mean Corpuscular Hemoglobin 30.9 pg (27.0-33.0); Mean Corpuscular Volume 88.8 fL (80.0-98.0); Monocytes Absolute Auto 0.5 X10*3/uL (0.1-1.2); Monocytes Percent Auto 8.2 % (2-11); Neutrophils Absolute Auto 2.4 x10*3/uL (2.0-8.3); Neutrophils Percent Auto 44.2 % (45-73); Platelet Count 194 X10*3/uL (160-400); Red Blood Count 4.89 X10*6/uL (4.60-5.80); Red Cell Distribution Width 13.2 % (11.0-16.0); White Blood Count 5.5 X10*3/uL (4.8-10.8)
[2022-09-15 05:11] LABS: Appearance Urine Clear; Color Urine Yellow; Glucose Urine UA Negative (Negative); Leukocyte Esterase Urine Small (1+) (Negative); Nitrite Urine Negative (Negative); PH 5.5 (5.0-9.0); Specific Gravity - Urine >= 1.030 (1.005-1.025); UMIC TRIGGER UACC YES; Urine Blood Trace (Negative); Urine Ketones Negative (Negative); Urine Protein 30 (1+) mg/dL (Neg-Trace)
[2022-09-15 05:16] LABS: Bacteria Urine None Seen (None Seen); Hyaline Casts Urine 0-2 /LPF (0-2); Squamous Epithelial Cell Urine 0-2 /HPF (0-2); UACC Culture Trigger YES; WBC Urine >50 /HPF (0-5)
[2022-09-15 05:24] LABS: Alanine Aminotransferase 12 U/L (0-40); Albumin Level 4.3 g/dL (3.5-5.0); Alkaline Phosphatase 59 U/L (39-117); Anion Gap 17 (12-20); Aspartate Amino Transferase 13 U/L (5-37); Bilirubin Total < 0.2 mg/dL (0.0-1.0); Blood Urea Nitrogen 14 mg/dL (9-16); Calcium 9.4 mg/dL (8.4-10.2); Carbon Dioxide 20 mmol/L (22-29); Chloride 108 mmol/L (96-108); Creatinine Clr Calc Pharmacy 128.8; Estimated Glomerular Filt Rate > 60; Glucose Random 105 mg/dL (60-115); Lipase 52 U/L (8-78); Potassium 3.7 mmol/L (3.3-5.1); Sodium 141 mmol/L (135-145); Total Protein 7.2 g/dL (6.5-8.0)
--- NOTE | 2022-09-15 06:27 | ED.ABDPAIN ---
HPI - Abdominal Pain General Chief Complaint: Abdominal Pain Stated Complaint: lower abd pain, had appendix removed Time Seen by Provider: 09/15/22 05:50 Source: patient History of Present Illness HPI narrative: 32-year-old male with a past medical history of appendicitis with surgical removal presents to the emergency department today with abdominal pain. Patient states has been going on for 2 days, and progressively worsening. It is not associated with any fevers or shaking chills, nausea vomiting or diarrhea. The pain is located in the lower mid abdomen, and does not radiate. MD elicited complaint: abdominal pain Onset (ago): day(s) (2) Pain Consistency: constant Location: suprapubic Severity: moderate Quality: cramping, aching and dull Related Data Previous Rx's Medication Instructions Recorded acetaminophen 300 mg-codeine 30 mg 1 tab PO Q8H PRN pain #10 tabs 06/20/21 tablet ibuprofen 800 mg tablet 800 mg PO Q8H PRN pain #14 tabs 06/20/21 albuterol sulfate 90 mcg/actuation 2 puff inhalation Q4-6H PRN 08/19/21 aerosol inhaler (ProAir HFA) Wheezing #8.5 grams codeine 10 mg-guaifenesin 100 mg/5 10 ml PO Q4-6H PRN cough #237 mL 08/19/21 mL oral liquid levofloxacin 750 mg tablet 750 mg PO DAILY 7 days #7 tabs 08/19/21 prednisone 20 mg tablet 40 mg PO DAILY #10 tabs 08/19/21 clindamycin HCl 300 mg capsule 300 mg PO Q6H 5 days #20 caps 12/10/21 amoxicillin 875 mg-potassium 1 tab PO Q12H 7 days #14 tabs 07/24/22 clavulanate 125 mg tablet ondansetron 4 mg disintegrating 4 mg PO Q6-8H PRN nausea and 07/24/22 tablet vomiting #14 tabs oxycodone 5 mg tablet 5 mg PO Q4H PRN pain #14 tabs 07/24/22 Allergies Allergy/AdvReac Type Severity Reaction Status Date / Time aspirin [ASA] Allergy Unknown HIVES Verified 12/10/21 02:12 penicillin G [PENICILLIN G] Allergy Unknown HIVES Verified 12/10/21 02:12 shrimp Allergy Unknown THROAT AND Verified 12/10/21 02:12 MOUTH SWELLING Review of Systems Review of Systems Yes all other systems are reviewed and are negative Constitutional: Denies chills and Denies fever(s) Cardiovascular: Denies chest pain, Denies lightheadedness, Denies Loss of Consciousness and Denies dyspnea Respiratory: Denies cough, Denies dyspnea and Denies wheezing Gastrointestinal: Denies change in bowel habits, Denies change in stool character, Denies coffee ground emesis, Denies constipation, Denies diarrhea, Denies nausea and Denies vomiting Genitourinary: Denies difficulty urinating and Denies dysuria Musculoskeletal: Denies no additional musculoskeletal complaints Reports system reviewed and no additional complaints, except as documented Allergic/Immunologic: Denies wheezing [facility] Past Medical History Attestation statement: The following information was validated with the patient. Medical History Asthma Social History Social History Patient Tobacco Use Status: Current everyday Tobacco user Advance Directives: No Advance Directives Information Provided: Yes Physical Exam ED Vital Signs: Vital Signs - 24 hr 09/15/22 04:50 Temperature 98.0 F Pulse Rate 64 Respiratory Rate 15 Blood Pressure 108/68 Pulse Oximetry 100 Oxygen Delivery Method Room Air BMI result Body Mass Index 23.6 Vital signs normal Const General: cooperative, healthy appearing and acute distress mild Nutritional Appearance: average body habitus Orientation/consciousness: patient oriented x3 HENMT Head: Yes normal to inspection, Yes normocephalic and Yes atraumatic Ears: hearing grossly normal bilaterally and external ears normal General nose exam: Normal external nose present Face and sinus: Yes normal facial exam Mouth: Normal oral and palatal mucosa present Eyes General: appearance normal, both eyes and all related structures Conjunctivae: conjunctivae normal Sclerae: sclerae normal Pupils: Equal, round and reactive pupils present EOM: EOMs intact bilaterally Neck Neck: Yes normal visual inspection and Yes full ROM Chest Chest palpation & inspection: normal inspection of the chest Resp Effort & Inspection: normal respiratory effort, no cough and no stridor Cardio Rate: regular rate Rhythm: regular rhythm GI Inspection: No abdominal wall ecchymosis, No Abdominal wall edema, No distended and Yes scar Palpation (GI): Soft to palpation, Tenderness to palpation present (GI) suprapubicly, no masses and no pulsatile masses Percussion: Yes normal to percussion Auscultation: normal bowel sounds Abdomen image: 1. Tenderness to palpation General: Yes CVA tenderness and Yes no CVA tenderness Back/Spine/Pelvis Back: no CVA tenderness and CVA tenderness Cervical Spine: normal cervical lordosis and cervical ROM normal Skin General skin exam: no rashes or lesions noted, no mottling and no pallor Neuro General: patient oriented x3 Cranial nerves: Yes CN's II-XII intact bilaterally, Yes Equal, round and reactive pupils present and Yes Bilaterally intact EOM present Cognition (Neuro): normal cognition Extrem General: Yes normal to inspection and Yes full ROM MDM - Abdominal Pain MDM Narrative Medical decision making narrative: 32-year-old male with abdominal pain. Laboratory studies normal except urinalysis is consistent with urinary tract infection. Recent appendectomy, will obtain CT scan of the abdomen to rule out additional post surgical pathology. Medical Records Attestation: I reviewed the patient's medical records. Lab Data Attestation: I reviewed the patient's lab results. Lab results narrative: No abnormal labs on CBC or chemistry. However, the urinalysis is impressive for UTI. Considering recent appendiceal surgery, and male gender, the patient will have a CT scan of the abdomen to rule out any additional pathology that could be present status post surgical appendectomy Result diagrams: 09/15/22 04:58 09/15/22 04:58 Labs: Lab Results 09/15/22 09/15/22 09/15/22 Range/Units 04:58 04:58 05:05 WBC 5.5 (4.8-10.8) X10*3/uL RBC 4.89 (4.60-5.80) X10*6/uL Hgb 15.1 (14.0-18.0) g/dl Hct 43.4 (42.0-52.0) % MCV 88.8 (80.0-98.0) fL MCH 30.9 (27.0-33.0) pg MCHC 34.8 (31.0-36.0) g/dl RDW 13.2 (11.0-16.0) % Plt Count 194 D (160-400) X10*3/uL MPV 10.0 (9.4-12.4) fL Immature Gran % (Auto) 0.2 (0.0-0.4) % Neut % (Auto) 44.2 L (45-73) % Lymph % (Auto) 44.5 H (20-40) % [place] % (Auto) 8.2 (2-11) % Eos % (Auto) 2.4 (0-4) % Baso % (Auto) 0.5 (0-2) % Lymph # (Auto) 2.5 (1.2-4.9) X10*3/uL [place] # (Auto) 0.5 (0.1-1.2) X10*3/uL Eos # (Auto) 0.1 (0.0-0.4) X10*3/uL Baso # (Auto) 0.0 (0.0-0.2) X10*3/uL Abs Immat Gran (auto) 0.01 (0.00-0.03) X10*3/uL Absolute Neuts (auto) 2.4 (2.0-8.3) x10*3/uL Absolute Nucleated RBC 0.000 (0.0-0.012) X10*3/uL Nucleated RBC % (auto) 0.0 (0.0-0.2) /100WBC Sodium 141 (135-145) mmol/L Potassium 3.7 (3.3-5.1) mmol/L Chloride 108 (96-108) mmol/L Carbon Dioxide 20 L (22-29) mmol/L Anion Gap 17 (12-20) BUN 14 (9-16) mg/dL Creatinine 0.92 (0.5-1.4) mg/dL Estim Creat Clear Calc 128.8 Estimated GFR > 60 Random Glucose 105 D (60-115) mg/dL Calcium 9.4 (8.4-10.2) mg/dL Magnesium 2.0 (1.6-2.6) mg/dL Total Bilirubin < 0.2 (0.0-1.0) mg/dL AST 13 (5-37) U/L ALT 12 (0-40) U/L Alkaline Phosphatase 59 (39-117) U/L Total Protein 7.2 (6.5-8.0) g/dL Albumin 4.3 (3.5-5.0) g/dL Lipase 52 (8-78) U/L Urine Color Yellow Urine Appearance Clear Urine pH 5.5 (5.0-9.0) Ur Specific [place] >= 1.030 H (1.005-1.025) Urine Protein 30 (1+) H (Neg-Trace) mg/dL Urine Glucose (UA) Negative (Negative) mg/dL Urine Ketones Negative (Negative) mg/dL Urine Blood Trace H (Negative) Urine Nitrite Negative (Negative) Ur Leukocyte Esterase Small (1+) H (Negative) Urine RBC 6-10 H (0-2) /HPF Urine WBC >50 H (0-5) /HPF Ur Squamous Epith Cells 0-2 (0-2) /HPF Urine Bacteria None Seen (None Seen) Hyaline Casts 0-2 (0-2) /LPF Discharge Plan Discharge Clinical Impression: Abdominal pain Patient Disposition: Still a Patient Prescriptions: No Action ibuprofen 800 mg tablet 800 mg PO Q8H PRN (Reason: pain) Qty: 14 0RF acetaminophen-codeine 300-30 mg tablet 1 tab PO Q8H PRN (Reason: pain) Qty: 10 0RF levofloxacin 750 mg tablet 750 mg PO DAILY 7 Days Qty: 7 0RF prednisone 20 mg tablet 40 mg PO DAILY Qty: 10 0RF codeine-guaifenesin 10-100 mg/5 mL liquid 10 ml PO Q4-6H PRN (Reason: cough) Qty: 237 0RF albuterol sulfate [ProAir HFA] 90 mcg/actuation HFA aerosol inhaler 2 puff inhalation Q4-6H PRN (Reason: Wheezing) Qty: 8.5 0RF clindamycin HCl 300 mg capsule 300 mg PO Q6H 5 Days Qty: 20 0RF amoxicillin-pot clavulanate 875-125 mg tablet 1 tab PO Q12H 7 Days Qty: 14 0RF oxycodone 5 mg tablet 5 mg PO Q4H PRN (Reason: pain) Qty: 14 0RF Rx Instructions: Patient may request partial fill; Partial Fill upon patient request. ondansetron 4 mg tablet,disintegrating 4 mg PO Q6-8H PRN (Reason: nausea and vomiting) Qty: 14 0RF
[2022-09-15 07:11] VITALS: BP 109/79; PULSE 61; RESP 14; TEMP 36.6; O2SAT 100
[2022-09-15] MEDS: cefTRIAXone sodium 1 GM in 0.9 % Sodium Chloride 50 ML IV (07:26)
[2022-09-15] MEDS: iohexoL 350 MG/ML 100 ML INFUS..BTL IV (08:14)
[2022-09-15] MEDS: HYDROmorphone HCl 0.5 MG/0.5 ML SYRINGE IVPUSH (09:34)
[2022-09-15 11:49] LABS: CT PCR DETECTED (Not Detect.); NG PCR NOT DETECTED (Not Detect.)
--- NOTE | 2022-09-15 11:51 | PC.NURSE ---
pt alert and oriented, skin appropriate for ethnicity, pt reports his abd pain is slightly better after the medication pain at 7/10
--- NOTE | 2022-09-15 12:46 | P.CONGS_ITS ---
History of Present Illness Consult details Consult date: 09/15/22 Narrative: 32M here in the ED for suprapubic pain. He says this started yesterday. He says that he actually feels this to be worse with urination. His history is signfiicant for appendectomy. He had lap appendectomy in [place] last May 2022, but needed another lap appy last July 2022 in [facility] for what sounded likel a long residual appendiceal stump. He denies nausea or vomitting. He denies constipation but says he thinks his stools are loose. He denies fever or chills. Review of Systems Constitutional: Constitutional: Denies chills and Denies fever(s) Cardiovascular: Cardiovascular: Denies chest pain, Denies dyspnea and Denies dyspnea on exertion Respiratory: Respiratory: Denies cough, Denies dyspnea and Denies dyspnea on exertion Gastrointestinal: Gastrointestinal: Denies hematochezia and Denies change in bowel habits Genitourinary: Genitourinary: Denies hematuria, Denies difficulty urinating and Reports dysuria Musculoskeletal: Musculoskeletal: Denies back pain and Denies limited range of motion Neurologic: Denies focal weakness and Denies convulsions Psychiatric: Psychiatric: Denies depression and Denies mood swings PMFSH Past Medical History Medical History Asthma Social History Social History Patient Tobacco Use Status: Current everyday Tobacco user Smoked in Last 30 Days: Yes Use of substances other than those prescribed or required for medical reasons: Yes Substance Use Type: Marijuana Substance Use Frequency: Occasionally Advance Directives: No Advance Directives Information Provided: Yes Meds Allergies Allergy/AdvReac Type Severity Reaction Status Date / Time aspirin [ASA] Allergy Unknown HIVES Verified 12/10/21 02:12 penicillin G [PENICILLIN G] Allergy Unknown HIVES Verified 12/10/21 02:12 shrimp Allergy Unknown THROAT AND Verified 12/10/21 02:12 MOUTH SWELLING Physical Exam Vital Signs: Vital Signs: Last Vital Signs Temp 97.9 F 09/15/22 07:11 Pulse 61 09/15/22 07:11 Resp 14 09/15/22 07:11 BP 109/79 09/15/22 07:11 Pulse Ox 100 09/15/22 07:11 O2 Del Method 09/15/22 07:11 BMI result Body Mass Index 23.6 Const: General: comfortable and no acute distress Orien tation/consciousness: patient oriented x3 Neck: Neck: Yes no lymphadenopathy Resp: Auscultation: clear to auscultation bilaterally Cardio: Rhythm: regular rhythm GI: Other: tender on the suprapubic area, no guarding no distension Palpation (GI): Soft to palpation, nontender and no guarding Neuro: General: patient oriented x3 Results Labs Result diagrams: 09/15/22 04:58 09/15/22 04:58 Labs: Abnormal lab results 09/15/22 09/15/22 09/15/22 Range/Units 04:58 04:58 05:05 Neut % (Auto) 44.2 L (45-73) % Lymph % (Auto) 44.5 H (20-40) % Carbon Dioxide 20 L (22-29) mmol/L Ur Specific [place] >= 1.030 H (1.005-1.025) Urine Protein 30 (1+) H (Neg-Trace) mg/dL Urine Blood Trace H (Negative) Ur Leukocyte Esterase Small (1+) H (Negative) Urine RBC 6-10 H (0-2) /HPF Urine WBC >50 H (0-5) /HPF Chlam trachomat DNA PCR (Not Detect.) 09/15/22 Range/Units 06:31 Neut % (Auto) (45-73) % Lymph % (Auto) (20-40) % Carbon Dioxide (22-29) mmol/L Ur Specific [place] (1.005-1.025) Urine Protein (Neg-Trace) mg/dL Urine Blood (Negative) Ur Leukocyte Esterase (Negative) Urine RBC (0-2) /HPF Urine WBC (0-5) /HPF Chlam trachomat DNA PCR DETECTED A (Not Detect.) Short CBC 09/15/22 Range/Units 04:58 WBC 5.5 (4.8-10.8) X10*3/uL Hgb 15.1 (14.0-18.0) g/dl Hct 43.4 (42.0-52.0) % Plt Count 194 D (160-400) X10*3/uL BMP 09/15/22 04:58 Sodium 141 Potassium 3.7 Chloride 108 Carbon Dioxide 20 L BUN 14 Creatinine 0.92 Calcium 9.4 Liver Function 09/15/22 Range/Units 04:58 Total Bilirubin < 0.2 (0.0-1.0) mg/dL AST 13 (5-37) U/L ALT 12 (0-40) U/L Alkaline Phosphatase 59 (39-117) U/L Albumin 4.3 (3.5-5.0) g/dL Urine 09/15/22 Range/Units 05:05 Urine Color Yellow Urine Appearance Clear Urine pH 5.5 (5.0-9.0) Ur Specific [place] >= 1.030 H (1.005-1.025) Urine Protein 30 (1+) H (Neg-Trace) mg/dL Urine Glucose (UA) Negative (Negative) mg/dL All other labs normal. Imaging Additional studies: Laboratory Results WBC 5.5 X10*3/uL (4.8-10.8) 09/15/22 04:58 RBC 4.89 X10*6/uL (4.60-5.80) 09/15/22 04:58 Hgb 15.1 g/dl (14.0-18.0) 09/15/22 04:58 Hct 43.4 % (42.0-52.0) 09/15/22 04:58 MCV 88.8 fL (80.0-98.0) 09/15/22 04:58 MCH 30.9 pg (27.0-33.0) 09/15/22 04:58 MCHC 34.8 g/dl (31.0-36.0) 09/15/22 04:58 RDW 13.2 % (11.0-16.0) 09/15/22 04:58 Plt Count 194 X10*3/uL (160-400) D 09/15/22 04:58 MPV 10.0 fL (9.4-12.4) 09/15/22 04:58 Immature Gran % (Auto) 0.2 % (0.0-0.4) 09/15/22 04:58 Neut % (Auto) 44.2 % (45-73) L 09/15/22 04:58 Lymph % (Auto) 44.5 % (20-40) H 09/15/22 04:58 [place] % (Auto) 8.2 % (2-11) 09/15/22 04:58 Eos % (Auto) 2.4 % (0-4) 09/15/22 04:58 Baso % (Auto) 0.5 % (0-2) 09/15/22 04:58 Lymph # (Auto) 2.5 X10*3/uL (1.2-4.9) 09/15/22 04:58 [place] # (Auto) 0.5 X10*3/uL (0.1-1.2) 09/15/22 04:58 Eos # (Auto) 0.1 X10*3/uL (0.0-0.4) 09/15/22 04:58 Baso # (Auto) 0.0 X10*3/uL (0.0-0.2) 09/15/22 04:58 Abs Immat Gran (auto) 0.01 X10*3/uL (0.00-0.03) 09/15/22 04:58 Absolute Neuts (auto) 2.4 x10*3/uL (2.0-8.3) 09/15/22 04:58 Absolute Nucleated RBC 0.000 X10*3/uL (0.0-0.012) 09/15/22 04:58 Nucleated RBC % (auto) 0.0 /100WBC (0.0-0.2) 09/15/22 04:58 Sodium 141 mmol/L (135-145) 09/15/22 04:58 Potassium 3.7 mmol/L (3.3-5.1) 09/15/22 04:58 Chloride 108 mmol/L (96-108) 09/15/22 04:58 Carbon Dioxide 20 mmol/L (22-29) L 09/15/22 04:58 Anion Gap 17 (12-20) 09/15/22 04:58 BUN 14 mg/dL (9-16) 09/15/22 04:58 Creatinine 0.92 mg/dL (0.5-1.4) 09/15/22 04:58 Estim Creat Clear Calc 128.8 09/15/22 04:58 Estimated GFR > 60 09/15/22 04:58 Random Glucose 105 mg/dL (60-115) D 09/15/22 04:58 Calcium 9.4 mg/dL (8.4-10.2) 09/15/22 04:58 Magnesium 2.0 mg/dL (1.6-2.6) 09/15/22 04:58 Total Bilirubin < 0.2 mg/dL (0.0-1.0) 09/15/22 04:58 AST 13 U/L (5-37) 09/15/22 04:58 ALT 12 U/L (0-40) 09/15/22 04:58 Alkaline Phosphatase 59 U/L (39-117) 09/15/22 04:58 Total Protein 7.2 g/dL (6.5-8.0) 09/15/22 04:58 Albumin 4.3 g/dL (3.5-5.0) 09/15/22 04:58 Lipase 52 U/L (8-78) 09/15/22 04:58 Urine Color Yellow 09/15/22 05:05 Urine Appearance Clear 09/15/22 05:05 Urine pH 5.5 (5.0-9.0) 09/15/22 05:05 Ur Specific [place] >= 1.030 (1.005-1.025) H 09/15/22 05:05 Urine Protein 30 (1+) mg/dL (Neg-Trace) H 09/15/22 05:05 Urine Glucose (UA) Negative mg/dL (Negative) 09/15/22 05:05 Urine Ketones Negative mg/dL (Negative) 09/15/22 05:05 Urine Blood Trace (Negative) H 09/15/22 05:05 Urine Nitrite Negative (Negative) 09/15/22 05:05 Ur Leukocyte Esterase Small (1+) (Negative) H 09/15/22 05:05 Urine RBC 6-10 /HPF (0-2) H 09/15/22 05:05 Urine WBC >50 /HPF (0-5) H 09/15/22 05:05 Ur Squamous Epith Cells 0-2 /HPF (0-2) 09/15/22 05:05 Urine Bacteria None Seen (None Seen) 09/15/22 05:05 Hyaline Casts 0-2 /LPF (0-2) 09/15/22 05:05 Chlam trachomat DNA PCR DETECTED (Not Detect.) A 09/15/22 06:31 N.gonorrhoeae DNA (PCR) NOT DETECTED (Not Detect.) 09/15/22 06:31 Impressions Abdomen X-Ray 09/15/22 05:15 IMPRESSION: Nonobstructive bowel gas pattern. Mild to moderate colonic stool burden. Abdomen/Pelvis CT 09/15/22 08:15 IMPRESSION: Constipation. Diffuse bladder wall thickening. This is new from July 2022 exam and cystitis should be considered. Correlation with urinalysis and culture recommended. This small 1.4 cm thick-walled cystic area or fluid collection adjacent to the left anterior bladder wall, questionable for a tiny abscess versus loop of small bowel. Wall thickening of the terminal ileum no longer seen/appears improved. Enlarged spleen. Upper normal-size fatty liver. Fleischner guidelines were followed. Assessment and Plan (1) Abdominal pain: Status: Inactive HE has pain and tenderness on the suprapubic area. I have reviewed his CT scan with the radiologist and this shows bladder wall thickening, with a question of a small 1.4 cm cystic area adjacent to this on the left which could represent a bladder diverticulum, small abscess or small bowel loop. There are no inflammatory changes on this area. His symptoms are c/w acute cystitis. As per the ED physician, he has tested positive for gonorrhea and chlamydia which may explain his cystitis. He does not have singificant GI symptoms and is not obstructed. I do not feel that this cyst adjacent to the bladder iscausing his symptoms. He should be treated with abx for his cystitis. He may benefit from ffup down the line with a repeat CT scan to follow this cyst . Procedures Date of Service Date of Service: 09/15/22
[2022-09-15] MEDS: cefTRIAXone sodium 500 MG, Lidocaine HCl 1 % MPF 1 ML IM (12:59)
[2022-09-15] MEDS: Doxycycline Monohydrate 100 MG CAPSULE PO (13:00)
[2022-09-15 13:05] VITALS: BP 112/79; PULSE 53; RESP 14; TEMP 36.5; O2SAT 100
[2022-09-15 14:12] VITALS: BP 102/64; PULSE 58; RESP 14; TEMP 36.9; O2SAT 100
--- NOTE | 2022-09-15 14:38 | PC.NURSE ---
PT AWAKE, ALERT AND ORIENTED X 3. SKIN WARM AND DRY. RESP UNLABORED. DENIES N/V. REQUESTING MORE PAIN MEDICATION HOWEVER PROVIDER DECLINES TO ORDER AT THIS TIME. PLAN IS FOR DC HOME. IV REMOVED.
== END 2022-09-15 14:42 | disposition home or self-care (01) ==
PROVIDERS: Emergency Medicine; Emergency Provider Emergency Medicine Emergency Medical Services
DX: R10.33 Periumbilical pain (principal); Z79.899 Other long term (current) drug therapy; F17.200 Nicotine dependence, unspecified, uncomplicated; Z71.6 Tobacco abuse counseling
CPT/HCPCS: 36415; 74018; 74177; 80053; 81001; 83690; 83735; 85025; 87086; 87491; 87591; 96365; 96372; 96375; 99284; 99285; J0696; J1170; Q9967

== ENCOUNTER 2022-10-12 11:08 | Emergency (ER) | payer MEDICAID, SELFPAY ==
--- NOTE | ~2022-10-12 | XR_ITS ---
EXAMINATION: 1. RADIOGRAPHS LUMBAR SPINE 2. RADIOGRAPHS LEFT HIP CLINICAL INFORMATION: Pain after fall COMPARISON: CT abdomen pelvis September 15, 2022 and lumbar spine x-rays October 16, 2016 TECHNIQUE: 3 views of the lumbar spine and 2 views of the left hip with pelvis were obtained FINDINGS: Lumbar spine: 5 nonrib-bearing lumbar vertebral bodies are visualized. Alignment is within normal limits. Lumbar vertebral body heights and disc spaces are maintained. No appreciable degenerative changes. Left hip: Visualized portions of the proximal left femur demonstrate no fracture. Left femoral head is well-seated within the acetabulum. Left femoral acetabular joint space is well-maintained. Pelvic ring is intact. Sacroiliac joints are symmetric. The right hip is grossly unremarkable. Surgical clips project over the right lower abdomen, likely consistent with prior appendectomy. XR/XR hip LT w PEL1V IMPRESSION: 1. Unremarkable radiographs of the lumbar spine. 2. Unremarkable radiographs of the left hip.
--- NOTE | ~2022-10-12 | XR_ITS ---
EXAMINATION: 1. RADIOGRAPHS LUMBAR SPINE 2. RADIOGRAPHS LEFT HIP CLINICAL INFORMATION: Pain after fall COMPARISON: CT abdomen pelvis September 15, 2022 and lumbar spine x-rays October 16, 2016 TECHNIQUE: 3 views of the lumbar spine and 2 views of the left hip with pelvis were obtained FINDINGS: Lumbar spine: 5 nonrib-bearing lumbar vertebral bodies are visualized. Alignment is within normal limits. Lumbar vertebral body heights and disc spaces are maintained. No appreciable degenerative changes. Left hip: Visualized portions of the proximal left femur demonstrate no fracture. Left femoral head is well-seated within the acetabulum. Left femoral acetabular joint space is well-maintained. Pelvic ring is intact. Sacroiliac joints are symmetric. The right hip is grossly unremarkable. Surgical clips project over the right lower abdomen, likely consistent with prior appendectomy. XR/XR lumbar spine 2-3V IMPRESSION: 1. Unremarkable radiographs of the lumbar spine. 2. Unremarkable radiographs of the left hip.
--- NOTE | 2022-10-12 11:20 | ED_ITS ---
HPI - Back Pain/Injury General Chief Complaint: Fall <Kendra Madsen NP - Last Filed: 10/12/22 11:23> Stated Complaint: Fall/Lower back pain/Leg pain <Kendra Madsen NP - Last Filed: 10/12/22 11:23> Time Seen by Provider: 10/12/22 12:31 <Kendra Madsen NP - Last Filed: 10/12/22 11:23> Source: patient <AYAH Colbert - Last Filed: 10/12/22 12:49> Mode of arrival: ambulatory <AYAH Colbert - Last Filed: 10/12/22 12:49> Limitations: no limitations <AYAH Colbert Last Filed: 10/12/22 12:49> History of Present Illness HPI Narrative: Patient is a 32 year old assigned male at with no reported medical history presenting to the emergency department today with left hip and left back pain after falling down a set of stairs. Patient states that he fell down 10 stairs 1 hour and now his left hip and left lower back hurts. Patient denies hitting his head with the incident. Patient denies any loss of consciousness with the incident. Patient denies any dizziness, lightheadedness, abdominal pain, nausea, vomiting, fever, chills, blurry vision, double vision, loss of vision, chest pain, difficulty breathing, shortness of breath, night sweats, pain with urination, increased urinary frequency, increased urinary urgency, blood in his urine or stool, syncope or a near syncopal episode, bowel incontinence, bladder incontinence, bowel retention, bladder retention, or any other complaints at this time. <AYAH Colbert - Last Filed: 10/12/22 12:49> MD elicited complaint: back pain and fall <AYAH Colbert - Last Filed: 10/12/22 12:49> Pertinent past history: recent trauma <AYAH Colbert - Last Filed: 10/12/22 12:49> Onset (ago): hour(s) (1) <AYAH Colbert - Last Filed: 10/12/22 12:49> Timing: constant <AYAH Colbert - Last Filed: 10/12/22 12:49> Severity: mild <AYAH Colbert - Last Filed: 10/12/22 12:49> Pain scale (0-10): 4 <AYAH Colbert - Last Filed: 10/12/22 12:49> Quality: aching <AYAH Colbert - Last Filed: 10/12/22 12:49> Location: lumbar spine <AYAH Colbert - Last Filed: 10/12/22 12:49> Radiation: none <AYAH Colbert - Last Filed: 10/12/22 12:49> Exacerbating factors: movement <AYAH Colbert - Last Filed: 10/12/22 12:49> Relieving factors: none <AYAH Colbert - Last Filed: 10/12/22 12:49> Context: fall and trauma <AYAH Colbert - Last Filed: 10/12/22 12:49> Associated symptoms: denies other symptoms <AYAH Colbert - Last Filed: 10/12/22 12:49> Work related injury: No <AYAH Colbert - Last Filed: 10/12/22 12:49> Related Data Home Medications: Previous Rx's Medication Instructions Recorded acetaminophen 300 mg-codeine 30 mg 1 tab PO Q8H PRN pain #10 tabs 06/20/21 tablet ibuprofen 800 mg tablet 800 mg PO Q8H PRN pain #14 tabs 06/20/21 albuterol sulfate 90 mcg/actuation 2 puff inhalation Q4-6H PRN 08/19/21 aerosol inhaler (ProAir HFA) Wheezing #8.5 grams codeine 10 mg-guaifenesin 100 mg/5 10 ml PO Q4-6H PRN cough #237 mL 08/19/21 mL oral liquid levofloxacin 750 mg tablet 750 mg PO DAILY 7 days #7 tabs 08/19/21 prednisone 20 mg tablet 40 mg PO DAILY #10 tabs 08/19/21 clindamycin HCl 300 mg capsule 300 mg PO Q6H 5 days #20 caps 12/10/21 amoxicillin 875 mg-potassium 1 tab PO Q12H 7 days #14 tabs 07/24/22 clavulanate 125 mg tablet ondansetron 4 mg disintegrating 4 mg PO Q6-8H PRN nausea and 07/24/22 tablet vomiting #14 tabs oxycodone 5 mg tablet 5 mg PO Q4H PRN pain #14 tabs 07/24/22 doxycycline monohydrate 100 mg 100 mg PO BID Chlamydia infection 09/15/22 capsule #14 caps ibuprofen 400 mg tablet 400 mg PO Q6H PRN pain #20 tabs 09/15/22 naproxen 500 mg tablet 500 mg PO BID 7 days #14 tabs 10/12/22 <Kendra Madsen NP - Last Filed: 10/12/22 11:23> Allergies/Adverse Reactions: Allergies Allergy/AdvReac Type Severity Reaction Status Date / Time shrimp Allergy Unknown THROAT AND Verified 10/12/22 11:21 MOUTH SWELLING <Kendra Madsen NP - Last Filed: 10/12/22 11:23> Review of Systems Constitutional: Constitutional: Reports no additional constitutional complaints, Denies chills, Denies fever(s) and Denies night sweats <AYAH Colbert - Last Filed: 10/12/22 12:49> Eyes: Eyes: Reports no additional eye complaints, Denies blurry vision, Denies change in vision, Denies diplopia, Denies eye discharge, Denies loss of vision and Denies eye pain <AYAH Colbert - Last Filed: 10/12/22 12:49> ENT: Denies dizziness <AYAH Colbert - Last Filed: 10/12/22 12:49> Cardiovascular: Cardiovascular: Reports no additional cardiovascular complaints, Denies chest pain, Denies lightheadedness, Denies Loss of Consciousness and Denies dyspnea <AYAH Colbert Last Filed: 10/12/22 12:49> Respiratory: Respiratory: Reports no additional respiratory complaints and Denies dyspnea <AYAH Colbert Last Filed: 10/12/22 12:49> Gastrointestinal: Gastrointestinal: Reports no additional gastrointestinal complaints, Denies abdominal pain, Denies melena, Denies hematochezia, Denies change in bowel habits and Denies change in stool character <AYAH Colbert Last Filed: 10/12/22 12:49> Genitourinary: Genitourinary: Reports no additional male genitourinary complaints, Denies hematuria, Denies oliguria, Denies difficulty urinating, Denies dysuria, Denies urinary frequency, Denies urinary hesitancy, Denies urinary incontinence and Denies urinary urgency <AYAH Colbert - Last Filed: 10/12/22 12:49> Musculoskeletal: Musculoskeletal: Reports no additional musculoskeletal complaints, Reports back pain, Denies numbness and Denies tingling <AYAH Colbert - Last Filed: 10/12/22 12:49> Neurologic: Denies dizziness, Denies loss of vision, Denies numbness and Denies tingling <AYAH Colbert - Last Filed: 10/12/22 12:49> Psychiatric: Psychiatric: Reports no additional psychiatric complaints <AYAH Colbert - Last Filed: 10/12/22 12:49> Endocrine: Endocrine: Reports no additional endocrine complaints <AYAH Colbert - Last Filed: 10/12/22 12:49> Hematologic/Lymphatic: Hematologic/Lymphatic: Reports no additional hematologic/lymphatic complaints <AYAH Colbert - Last Filed: 10/12/22 12:49> Allergic/Immunologic: Allergic/Immunologic: Reports no additional allergic/immunologic complaints <AYAH Colbert - Last Filed: 10/12/22 12:49> PMFSH Past Medical History Attestation statement: The following information was validated with the patient. <AYAH Colbert - Last Filed: 10/12/22 12:49> Source: old records reviewed and nursing notes reviewed <AYAH Colbert - Last Filed: 10/12/22 12:49> Medical History: Medical History Asthma <Kendra Madsen NP - Last Filed: 10/12/22 11:23> Social History Social History: Social History Patient Tobacco Use Status: Current everyday Tobacco user Substance Use Type: Marijuana Advance Directives: No Advance Directives Information Provided: No <Kendra Madsen NP - Last Filed: 10/12/22 11:23> Physical Exam Vital Signs: Vital Signs: Last Vital Signs Temp 98.0 F 10/12/22 11:21 Pulse 71 10/12/22 11:21 Resp 18 10/12/22 11:21 BP 111/72 10/12/22 11:21 Pulse Ox 99 10/12/22 11:21 BMI result Body Mass Index 24.4 <Kendra Madsen NP - Last Filed: 10/12/22 11:23> Vital Signs: Last Vital Signs Temp 98.0 F 10/12/22 11:21 Pulse 71 10/12/22 11:21 Resp 18 10/12/22 11:21 BP 111/72 10/12/22 11:21 Pulse Ox 99 10/12/22 11:21 BMI result Body Mass Index 24.4 <AYAH Colbert - Last Filed: 10/12/22 12:49> Const: General: cooperative, no acute distress, alert and awake <AYAH Colbert - Last Filed: 10/12/22 12:49> Nutritional Appearance: well nourished <AYAH Colbert - Last Filed: 10/12/22 12:49> Orientation/consciousness: patient oriented x3 <AYAH Colbert - Last Filed: 10/12/22 12:49> Limitations: no limitations <AYAH Colbert - Last Filed: 10/12/22 12:49> HEENT: Head: Yes normal to inspection and Yes atraumatic <AYAH Colbert - Last Filed: 10/12/22 12:49> Ears: hearing grossly normal bilaterally and external ears normal <AYAH Colbert - Last Filed: 10/12/22 12:49> General nose exam: Normal external nose present, no nasal discharge noted and no epistaxis <AYAH Colbert - Last Filed: 10/12/22 12:49> Face and sinus: Yes normal facial exam, No abrasion and No laceration <AYAH Colbert - Last Filed: 10/12/22 12:49> Mouth: Normal oral and palatal mucosa present, no drooling and no muffled voice <AYAH Colbert - Last Filed: 10/12/22 12:49> Eyes: General: appearance normal, both eyes and all related structures <AYAH Colbert - Last Filed: 10/12/22 12:49> Periorbital: periorbital findings normal <Usha Mercer AYAH - Last Filed: 10/12/22 12:49> Eyelids: Yes eyelids normal <Usha Mercer CT - Last Filed: 10/12/22 12:49> Conjunctivae: conjunctivae normal <Usha Mercer CT - Last Filed: 10/12/22 12:49> Pupils: Equal, round and reactive pupils present <Usha Mercer AYAH - Last Filed: 10/12/22 12:49> EOM: EOMs intact bilaterally <Usha Mercer CT - Last Filed: 10/12/22 12:49> Neck: Neck: Yes normal visual inspection, Yes full ROM and Yes no lymphadenopathy <Usha Mercer CT - Last Filed: 10/12/22 12:49> Chest: Chest palpation & inspection: normal inspection of the chest <Usha Mercer CT - Last Filed: 10/12/22 12:49> Resp: Effort & Inspection: normal respiratory effort and able to speak in complete sentences <Usha Mercer CT - Last Filed: 10/12/22 12:49> Auscultation: clear to auscultation bilaterally <Usha Mercer CT - Last Filed: 10/12/22 12:49> Cardio: Rate: regular rate <Usha Mercer AYAH - Last Filed: 10/12/22 12:49> Rhythm: regular rhythm <Usha Mercer CT - Last Filed: 10/12/22 12:49> GI: Inspection: Yes normal to inspection <Usha Mercer AYAH - Last Filed: 10/12/22 12:49> Palpation (GI): Soft to palpation, not firm, nontender, no guarding and not rigid <Usha Mercer CT - Last Filed: 10/12/22 12:49> : General: Yes no CVA tenderness <Usha Mercer AYAH - Last Filed: 10/12/22 12:49> Back/Spine/Pelvis: Back: no CVA tenderness <Usha Mercer AYAH - Last Filed: 10/12/22 12:49> Cervical Spine: normal cervical lordosis and cervical ROM normal <Usha Mercer AYAH - Last Filed: 10/12/22 12:49> Thoracic/Lumbar Spine: thoracic and lumbar spine normal to inspection and thoraco-lumbar ROM normal <AYAH Colbert - Last Filed: 10/12/22 12:49> Pelvis: no pain with anterior-posterior compression <AYAH Colbert - Last Filed: 10/12/22 12:49> Neuro: General: patient oriented x3 and moves all extremities <AYAH Colbert - Last Filed: 10/12/22 12:49> Cranial nerves: Yes Equal, round and reactive pupils present <AYAH Colbert - Last Filed: 10/12/22 12:49> Cognition (Neuro): normal cognition <AYAH Colbert - Last Filed: 10/12/22 12:49> Motor exam (neuro): 5/5 motor strength present throughout <AYAH Colbert - Last Filed: 10/12/22 12:49> Sensory Exam: Normal double simultaneous stimulation for sensation <AYAH Colbert - Last Filed: 10/12/22 12:49> Coordination: [id number] test normal <AYAH Colbert - Last Filed: 10/12/22 12:49> Extrem: General: Yes normal to inspection, Yes full ROM and Yes capillary refill normal <AYAH Colbert - Last Filed: 10/12/22 12:49> Psych: Appearance: grossly normal <AYAH Colbert - Last Filed: 10/12/22 12:49> Mental Status: mental status grossly normal <AYAH Colbert - Last Filed: 10/12/22 12:49> Affect: normal affect <AYAH Colbert - Last Filed: 10/12/22 12:49> Attitude: cooperative <AYAH Colbert - Last Filed: 10/12/22 12:49> Thought process: Normal thought process present <AYAH Colbert - Last Filed: 10/12/22 12:49> Thought content: Normal thought content present <AYAH Colbert - Last Filed: 10/12/22 12:49> Insight: Good insight present (Psych) <AYAH Colbert - Last Filed: 10/12/22 12:49> Course Course Course Narrative: This is a rapid medical exam. Deferred additional HPI, ROS, PE to primary provider. 32 yo male healthy here with back/left hip pain after mechanical fall down a flight stairs this morning. Denies hitting head or loc. Patient ambulatory. Will check x-rays. VSS <Kendra Madsen NP - Last Filed: 10/12/22 11:23> Medical Decision Making Medical Decision Making MDM Narrative: Patient is a 32 year old assigned male at with no reported medical history presenting to the emergency department today with left sided back pain and left hip pain. Patient's physical exam was unremarkable. Patient's left hip and lumbar spine x-rays showed no acute process. I explained my physical exam findings as well as all test results to the patient. I answered all questions asked by the patient. Patient received PO [place] which he stated helped his pain significantly. I stressed the importance of the patient taking his medication as prescribed. I stressed the importance of the patient following up with his primary care provider. I stressed the importance of the patient returning to the emergency department immediately if his symptoms were to worsen or if he were to develop any dizziness, shortness of breath, difficulty breathing, chest pain, blurry vision, loss of vision, nausea, vomiting, abdominal pain, fever, chills, back pain, or any other complaints. Patient verbalized agreement and understanding with this treatment plan and discharge. <AYAH Colbert - Last Filed: 10/12/22 12:49> Differential Diagnosis The differential diagnosis associated with the presentation includes <AYAH Colbert - Last Filed: 10/12/22 12:49> diagnosis of: fall, hip pain, back pain <AYAH Colbert - Last Filed: 10/12/22 12:49> Radiology Impression Discussion of test interpretation with radiology: I have reviewed the radiologist's reading. <AYAH Colbert - Last Filed: 10/12/22 12:49> Radiologist Impression: EXAMINATION: 1.? RADIOGRAPHS LUMBAR SPINE 2.? RADIOGRAPHS LEFT HIP CLINICAL INFORMATION: Pain after fall? COMPARISON: CT abdomen pelvis September 15, 2022 and lumbar spine x-rays October 16, 2016? TECHNIQUE: 3 views of the lumbar spine and 2 views of the left hip with pelvis were obtained? FINDINGS: Lumbar spine: 5 nonrib-bearing lumbar vertebral bodies are visualized. Alignment is within normal limits. Lumbar vertebral body heights and disc spaces are maintained. No appreciable degenerative changes.? Left hip: Visualized portions of the proximal left femur demonstrate no fracture. Left femoral head is well-seated within the acetabulum. Left femoral acetabular joint space is well-maintained. Pelvic ring is intact. Sacroiliac joints are symmetric. The right hip is grossly unremarkable. Surgical clips project over the right lower abdomen, likely consistent with prior appendectomy. XR/XR hip LT w PEL1V IMPRESSION: 1.? Unremarkable radiographs of the lumbar spine. 2.? Unremarkable radiographs of the left hip. Dictated By: Samson Hicks MD Signed By: Electronically signed by Samson Hicks MD 10/12/22 1233 <AYAH Colbert - Last Filed: 10/12/22 12:49> Discharge Plan Discharge Clinical Impression: Fall, Acute pain of left hip, Back pain <Kendra Madsen NP - Last Filed: 10/12/22 11:23> Patient Disposition: Home, Self-Care <Kendra Madsen NP - Last Filed: 10/12/22 11:23> Instructions: Back Pain (ED), Fall Prevention (ED), Hip Pain (ED) <Kendra Madsen NP - Last Filed: 10/12/22 11:23> Additional Instructions: Follow up with your primary care provider. Return to the emergency department immediately if your symptoms worsen or if you develop any dizziness, shortness of breath, difficulty breathing, chest pain, blurry vision, loss of vision, nausea, vomiting, abdominal pain, fever, chills, back pain, or any other complaints. <Kendra Madsen NP - Last Filed: 10/12/22 11:23> Prescriptions: New naproxen 500 mg tablet 500 mg PO BID 7 Days Qty: 14 0RF No Action ibuprofen 800 mg tablet 800 mg PO Q8H PRN (Reason: pain) Qty: 14 0RF acetaminophen-codeine 300-30 mg tablet 1 tab PO Q8H PRN (Reason: pain) Qty: 10 0RF levofloxacin 750 mg tablet 750 mg PO DAILY 7 Days Qty: 7 0RF prednisone 20 mg tablet 40 mg PO DAILY Qty: 10 0RF codeine-guaifenesin 10-100 mg/5 mL liquid 10 ml PO Q4-6H PRN (Reason: cough) Qty: 237 0RF albuterol sulfate [ProAir HFA] 90 mcg/actuation HFA aerosol inhaler 2 puff inhalation Q4-6H PRN (Reason: Wheezing) Qty: 8.5 0RF ibuprofen 400 mg tablet 400 mg PO Q6H PRN (Reason: pain) Qty: 20 0RF doxycycline monohydrate 100 mg capsule 100 mg PO BID Qty: 14 0RF clindamycin HCl 300 mg capsule 300 mg PO Q6H 5 Days Qty: 20 0RF amoxicillin-pot clavulanate 875-125 mg tablet 1 tab PO Q12H 7 Days Qty: 14 0RF oxycodone 5 mg tablet 5 mg PO Q4H PRN (Reason: pain) Qty: 14 0RF Rx Instructions: Patient may request partial fill; Partial Fill upon patient request. ondansetron 4 mg tablet,disintegrating 4 mg PO Q6-8H PRN (Reason: nausea and vomiting) Qty: 14 0RF <Kendra Madsen NP - Last Filed: 10/12/22 11:23> Referrals: [facility] [place] (Call to establish and follow up with a primary care provider. If you already have a primary care provider, please follow up with them. ) [facility] [Provider Group] (Call to establish and follow up with a primary care provider. If you already have a primary care provider, please follow up with them. ) [facility] [Provider Group] (Call to establish and follow up with a primary care provider. If you already have a primary care provider, please follow up with them. ) <Kendra Madsen NP - Last Filed: 10/12/22 11:23> Stand Alone Forms: Work/School Release <Kendra Madsen NP - Last Filed: 10/12/22 11:23> Print Language: Canadian <Kendra Madesn NP - Last Filed: 10/12/22 11:23>
[2022-10-12 11:21] VITALS: BP 111/72; PULSE 71; RESP 18; TEMP 36.7; O2SAT 99; BMI 24.4
[2022-10-12] MEDS: HYDROcodone Bit/Acetam 5/325 TABLET 1 TAB PO (12:58)
== END 2022-10-12 13:05 | disposition home or self-care (01) ==
PROVIDERS: Emergency Provider Emergency Medicine
DX: G89.11 Acute pain due to trauma (principal); M54.50 Low back pain, unspecified; M25.552 Pain in left hip; Z91.81 History of falling
CPT/HCPCS: 72100; 73502; 99283

== ENCOUNTER 2023-02-12 15:29 | Emergency (ER) | payer MEDICAID, SELFPAY ==
--- NOTE | ~2023-02-12 | XR_ITS ---
Examination: Thoracic and lumbar spine. Clinical indications: Pain. COMPARISON: None. TECHNIQUE: 3 views thoracic spine and 3 views lumbar spine: FINDINGS: Thoracic spine: There is normal thoracic kyphosis. The vertebral heights, alignment and disc heights are normal. There is minimal levoscoliosis centered at T5-T6 level. This could be positional. The paravertebral soft tissues are normal. Lumbar spine: There is normal lumbar lordosis. The vertebral heights, alignment and disc heights are normal. No visible acute fracture, dislocation or subluxation seen. N the paravertebral soft tissues are normal. The SI joints are symmetrical. The soft tissues are normal. XR/XR lumbar spine 2-3V IMPRESSION: 1. Minimal levoscoliosis centered at T5-T6 level. This could be positional. 2. No visible acute fracture, dislocation or lytic process seen in thoracic or lumbar spine.
--- NOTE | ~2023-02-12 | XR_ITS ---
Examination: Thoracic and lumbar spine. Clinical indications: Pain. COMPARISON: None. TECHNIQUE: 3 views thoracic spine and 3 views lumbar spine: FINDINGS: Thoracic spine: There is normal thoracic kyphosis. The vertebral heights, alignment and disc heights are normal. There is minimal levoscoliosis centered at T5-T6 level. This could be positional. The paravertebral soft tissues are normal. Lumbar spine: There is normal lumbar lordosis. The vertebral heights, alignment and disc heights are normal. No visible acute fracture, dislocation or subluxation seen. N the paravertebral soft tissues are normal. The SI joints are symmetrical. The soft tissues are normal. XR/XR thoracic spine 2V IMPRESSION: 1. Minimal levoscoliosis centered at T5-T6 level. This could be positional. 2. No visible acute fracture, dislocation or lytic process seen in thoracic or lumbar spine.
[2023-02-12 16:01] VITALS: BP 120/72; PULSE 75; RESP 16; TEMP 36.7; O2SAT 99; BMI 25.7
--- NOTE | 2023-02-12 16:03 | ED_ITS ---
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 back on the edge of a tool box and has had sharp back pain since, pain radiates into the left gluteal region, no muscle weakness, no loss of sensation no changes to bowel or bladder no incontinence no dysuria no frequency no fever <AYAH Ho - Last Filed: 02/13/23 20:24> Related Data Home medications: Previous Rx's Medication Instructions Recorded acetaminophen 300 mg-codeine 30 mg 1 tab PO Q8H PRN pain #10 tabs 06/20/21 tablet ibuprofen 800 mg tablet 800 mg PO Q8H PRN pain #14 tabs 06/20/21 albuterol sulfate 90 mcg/actuation 2 puff inhalation Q4-6H PRN 08/19/21 aerosol inhaler (ProAir HFA) Wheezing #8.5 grams codeine 10 mg-guaifenesin 100 mg/5 10 ml PO Q4-6H PRN cough #237 mL 08/19/21 mL oral liquid levofloxacin 750 mg tablet 750 mg PO DAILY 7 days #7 tabs 08/19/21 prednisone 20 mg tablet 40 mg PO DAILY #10 tabs 08/19/21 clindamycin HCl 300 mg capsule 300 mg PO Q6H 5 days #20 caps 12/10/21 amoxicillin 875 mg-potassium 1 tab PO Q12H 7 days #14 tabs 07/24/22 clavulanate 125 mg tablet ondansetron 4 mg disintegrating 4 mg PO Q6-8H PRN nausea and 07/24/22 tablet vomiting #14 tabs oxycodone 5 mg tablet 5 mg PO Q4H PRN pain #14 tabs 07/24/22 doxycycline monohydrate 100 mg 100 mg PO BID Chlamydia infection 09/15/22 capsule #14 caps ibuprofen 400 mg tablet 400 mg PO Q6H PRN pain #20 tabs 09/15/22 naproxen 500 mg tablet 500 mg PO BID 7 days #14 tabs 10/12/22 cyclobenzaprine 5 mg tablet 5 mg PO TID PRN muscle spasm #10 02/12/23 tabs ibuprofen 600 mg tablet 600 mg PO Q6H PRN pain #20 tabs 02/12/23 oxycodone 5 mg tablet 5 mg PO Q6H PRN pain #14 tabs 02/12/23 <AYAH Colbert - Last Filed: 02/12/23 16:04> Allergies/adverse reactions: Allergies Allergy/AdvReac Type Severity Reaction Status Date / Time shrimp Allergy Unknown THROAT AND Verified 10/12/22 11:21 MOUTH SWELLING <AYAH Colbert - Last Filed: 02/12/23 16:04> FOR[facility]LY [facility] Past Medical History Source: nursing notes reviewed <AYAH Ho - Last Filed: 02/13/23 20:24> Medical History: Medical History Asthma <AYAH Colbert - Last Filed: 02/12/23 16:04> Social History Social History: Social History Patient Tobacco Use Status: Current everyday Tobacco user Substance Use Type: Marijuana Advance Directives: No Advance Directives Information Provided: No <AYAH Colbert - Last Filed: 02/12/23 16:04> Physical Exam ED Vital Signs: Vital Signs - 24 hr 02/12/23 16:01 Temperature 98.1 F Pulse Rate 75 Respiratory Rate 16 Blood Pressure 120/72 Pulse Oximetry 99 Oxygen Delivery Method Room Air BMI result Body Mass Index 25.7 <AYAH Colbert - Last Filed: 02/12/23 16:04> Vital Signs - 24 hr 02/12/23 16:01 Temperature 98.1 F Pulse Rate 75 Respiratory Rate 16 Blood Pressure 120/72 Pulse Oximetry 99 Oxygen Delivery Method Room Air BMI result Body Mass Index 25.7 <AYAH Ho - Last Filed: 02/13/23 20:24> General appearance no distress Head is normocephalic atraumatic Neck is supple nontender Chest wall nontender Respiratory no distress Abdomen soft nontender The back had left lower lumbar and upper gluteal tenderness, skin of the back showed an abrasion of that area, there is no focal bony tenderness, there is pain easily reproduced with movement Extremities full range of motion x4 Neuro no focal motor or sensory deficits <AYAH Ho - Last Filed: 02/13/23 20:24> Course Course Course Narrative: RME performed by Usha Mercer PA-C. Patient is a 32 year old assigned male at presenting to the emergency department with back pain. Patient states that he tripped and fell onto his tools and now his back hurts. Imaging ordered. Patient placed back in the waiting room pending room availability and results. <AYAH Colbert Last Filed: 02/12/23 16:04> RME performed by Usha Mercer PA-C. Patient is a 32 year old assigned male at presenting to the emergency department with back pain. Patient states that he tripped and fell onto his tools and now his back hurts. Imaging ordered. Patient placed back in the waiting room pending room availability and results. X-rays of thoracic and lumbar spine were normal Patient is up-to-date with tetanus immunizaion for the abrasions on his back Pain was relieved with analgesics and he was discharged ambulatory from the emergency room <AYAH Ho - Last Filed: 02/13/23 20:24> Medications Administered Discontinued Medications Generic Name Dose Route Start Last Admin Trade Name Freq PRN Reason Stop Dose Admin Acetaminophen 975 mg 02/12/23 18:01 02/12/23 18:06 Acetaminophen 325 Mg Tablet PO 02/12/23 18:02 975 mg ONCE ONE Administration Ketorolac Tromethamine 30 mg 02/12/23 18:01 02/12/23 18:06 Ketorolac Tromethamine 30 Mg/Ml Vial IM 02/12/23 18:02 30 mg ONCE ONE Administration Oxycodone HCl 10 mg 02/12/23 18:01 02/12/23 18:06 Oxycodone Hcl Immed Release 5 Mg Tablet PO 02/12/23 18:02 10 mg ONCE ONE Administration <AYAH Colbert Last Filed: 02/12/23 16:04> Medications Administered Discontinued Medications Generic Name Dose Route Start Last Admin Trade Name Freq PRN Reason Stop Dose Admin Acetaminophen 975 mg 02/12/23 18:01 02/12/23 18:06 Acetaminophen 325 Mg Tablet PO 02/12/23 18:02 975 mg ONCE ONE Administration Ketorolac Tromethamine 30 mg 02/12/23 18:01 02/12/23 18:06 Ketorolac Tromethamine 30 Mg/Ml Vial IM 02/12/23 18:02 30 mg ONCE ONE Administration Oxycodone HCl 10 mg 02/12/23 18:01 02/12/23 18:06 Oxycodone Hcl Immed Release 5 Mg Tablet PO 02/12/23 18:02 10 mg ONCE ONE Administration <AYAH Ho - Last Filed: 02/13/23 20:24> Discharge Plan Discharge Clinical Impression: Back pain, Abrasion <AYAH Colbert - Last Filed: 02/12/23 16:04> Patient Disposition: Home, Self-Care <AYAH Colbert - Last Filed: 02/12/23 16:04> Additional Instructions: x-rays of her back were normal We are treating with pain killer in muscle relaxer Affect pain isn't better in a reasonable amount of time follow with primary doctor Return any time any worse condition or any concerns <AYAH Colbert - Last Filed: 02/12/23 16:04> Prescriptions: New ibuprofen 600 mg tablet 600 mg PO Q6H PRN (Reason: pain) Qty: 20 0RF cyclobenzaprine 5 mg tablet 5 mg PO TID PRN (Reason: muscle spasm) Qty: 10 0RF oxycodone 5 mg tablet 5 mg PO Q6H PRN (Reason: pain) Qty: 14 0RF Rx Instructions: Partial Fill upon patient request. No Action ibuprofen 800 mg tablet 800 mg PO Q8H PRN (Reason: pain) Qty: 14 0RF acetaminophen-codeine 300-30 mg tablet 1 tab PO Q8H PRN (Reason: pain) Qty: 10 0RF levofloxacin 750 mg tablet 750 mg PO DAILY 7 Days Qty: 7 0RF prednisone 20 mg tablet 40 mg PO DAILY Qty: 10 0RF codeine-guaifenesin 10-100 mg/5 mL liquid 10 ml PO Q4-6H PRN (Reason: cough) Qty: 237 0RF albuterol sulfate [ProAir HFA] 90 mcg/actuation HFA aerosol inhaler 2 puff inhalation Q4-6H PRN (Reason: Wheezing) Qty: 8.5 0RF ibuprofen 400 mg tablet 400 mg PO Q6H PRN (Reason: pain) Qty: 20 0RF doxycycline monohydrate 100 mg capsule 100 mg PO BID Qty: 14 0RF naproxen 500 mg tablet 500 mg PO BID 7 Days Qty: 14 0RF clindamycin HCl 300 mg capsule 300 mg PO Q6H 5 Days Qty: 20 0RF amoxicillin-pot clavulanate 875-125 mg tablet 1 tab PO Q12H 7 Days Qty: 14 0RF oxycodone 5 mg tablet 5 mg PO Q4H PRN (Reason: pain) Qty: 14 0RF Rx Instructions: Patient may request partial fill; Partial Fill upon patient request. ondansetron 4 mg tablet,disintegrating 4 mg PO Q6-8H PRN (Reason: nausea and vomiting) Qty: 14 0RF <AYAH Colbert - Last Filed: 02/12/23 16:04> Stand Alone Forms: Work/School Release <AYAH Colbert - Last Filed: 02/12/23 16:04> Interventions: ED Discharge Assessment Last Done: 02/12/23 19:09 <AYAH Colbert - Last Filed: 02/12/23 16:04> Discharge Date/Time: 02/12/23 19:09 <AYAH Colbert - Last Filed: 02/12/23 16:04>
[2023-02-12] MEDS: Ketorolac Tromethamine 30 MG/ML VIAL IM (18:06)
[2023-02-12] MEDS: oxyCODONE HCl Immed Release 5 MG TABLET 10 MG PO (18:06)
[2023-02-12] MEDS: Acetaminophen 325 MG TABLET 975 MG PO (18:06)
== END 2023-02-12 19:09 | disposition home or self-care (01) ==
PROVIDERS: Emergency Provider Emergency Medicine
DX: S30.810A Abrasion of lower back and pelvis, initial encounter (principal); W22.8XXA Striking against or struck by other objects, initial encounter; M54.50 Low back pain, unspecified; Y93.89 Activity, other specified; Y92.015 Private garage of single-family (private) house as the place of occurrence of the external cause; Y99.9 Unspecified external cause status
CPT/HCPCS: 72070; 72100; 96372; 99283; 99284; J1885

== ENCOUNTER 2023-04-05 07:53 | Emergency (ER) | payer MEDICAID, SELFPAY ==
--- NOTE | ~2023-04-05 | CT_ITS ---
EXAMINATION: CT HEAD WITHOUT CONTRAST CT CERVICAL SPINE WITHOUT CONTRAST CLINICAL INFORMATION: Fall from roof. COMPARISON: No relevant prior imaging. TECHNIQUE: Emissions Repair Technician images were obtained. CT imaging of the head and cervical spine was performed without contrast. Data was reformatted into multiplanar images at the acquisition workstation. This CT examination was performed using dose optimization techniques as appropriate, including one or more of the following: Automated exposure control, iterative reconstruction, and adjustment of technique factors (mA and/or kVp) according to patient size (this includes techniques or standardized protocols for targeted exams where dose is matched to indication/reason for exam). Fleischner Society criteria for the followup of incidental pulmonary nodules was implemented if appropriate. DLP: 1192 mGy-cm. FINDINGS: There is no acute intracranial hemorrhage or abnormal extra-axial collection. No intracranial mass effect or midline shift. Lateral and third ventricles are normal. No hydrocephalus. Pastrana-white matter differentiation is preserved and there is no evidence of acute territorial infarct. The calvarium and skull base are intact. Mastoid air cells and middle ear cavities are well-aerated. No active paranasal sinus disease. Cervical spine: Alignment is normal. Vertebral heights are preserved. No acute cervical spine fracture. No acute posttraumatic spinal subluxation. No abnormal prevertebral soft tissue swelling. Grossly no spinal canal stenosis. No neuroforaminal compromise. Visualized soft tissues of neck are normal. CT/CT cervical spine wo IV con IMPRESSION: Unremarkable CT scan of the head and cervical spine. No acute intracranial hemorrhage. No acute cervical spine fracture.
--- NOTE | ~2023-04-05 | CT_ITS ---
EXAMINATION: CT CHEST, ABDOMEN AND PELVIS WITH CONTRAST CLINICAL INFORMATION: Status post fall off roof. Left upper quadrant and left lower quadrant abdominal pain. COMPARISON: 09/15/2022 TECHNIQUE: Multidetector volumetric images were obtained from the superior aspect of the liver through the pubic symphysis following administration 85 mL of Omnipaque 350 intravenous contrast. Sagittal and coronal reformatted images were obtained on the technologist's workstation. Oral contrast: Yes This CT examination was performed using dose optimization techniques as appropriate, variously including the following: *Automated exposure control *Adjustment of mA and/or kV according to patient size (this includes techniques or standardized protocols for targeted exams where dose is matched to indication/reason for exam; i.e. extremities or head) *Use of iterative reconstruction technique DLP: 1005 mGy-cm FINDINGS: LUNGS: Motion artifact technically degrades image quality. No focal consolidation. No suspicious pulmonary nodule. Central airways are patent. MEDIASTINUM: Imaged thyroid gland is homogeneous. No bulky axillary, hilar or mediastinal lymphadenopathy. Great vessels are of normal caliber. Heart size is normal. No pericardial effusion. No coronary artery calcifications. CHEST WALL: Left-sided gynecomastia. LIVER, GALLBLADDER, AND BILIARY TREE: The liver is normal in size and contour. No focal hepatic lesion or biliary ductal dilatation is present. The gallbladder is unremarkable with no evidence of radiopaque gallstones, gallbladder wall thickening, or obvious pericholecystic inflammatory changes. PANCREAS: No ductal dilatation. SPLEEN: Stable enlargement. ADRENAL GLANDS: No adrenal masses. KIDNEYS AND URETERS: The kidneys are normal in size, shape, and attenuation. No hydronephrosis, hydroureter, or calculi seen. No perinephric stranding. BLADDER: Not well distended. Circumferential wall thickening despite underdistention. GASTROINTESTINAL TRACT: No abnormally dilated loops of small or large bowel. No small bowel obstruction. There is moderate fecal retention in the colon. 5 cm wall thickening of the rectosigmoid colon without surrounding inflammatory changes. ABDOMINAL WALL: No significant hernia is appreciated. LYMPH NODES: No bulky abdominal or pelvic lymphadenopathy VASCULAR: Normal caliber abdominal aorta. PELVIC VISCERA: Mildly enlarged prostate gland. OSSEOUS STRUCTURES: No destructive bone lesions. No displaced rib fracture. CT/CT abdomen pelvis w IV con IMPRESSION: Diffuse bladder wall thickening despite underdistention. Advise correlation with urinalysis Stable splenomegaly. 5 cm wall thickening of the rectosigmoid colon. Correlation with direct visualization is advised to exclude underlying pathology.
--- NOTE | ~2023-04-05 | CT_ITS ---
EXAMINATION: CT HEAD WITHOUT CONTRAST CT CERVICAL SPINE WITHOUT CONTRAST CLINICAL INFORMATION: Fall from roof. COMPARISON: No relevant prior imaging. TECHNIQUE: Real Estate Management Specialist images were obtained. CT imaging of the head and cervical spine was performed without contrast. Data was reformatted into multiplanar images at the acquisition workstation. This CT examination was performed using dose optimization techniques as appropriate, including one or more of the following: Automated exposure control, iterative reconstruction, and adjustment of technique factors (mA and/or kVp) according to patient size (this includes techniques or standardized protocols for targeted exams where dose is matched to indication/reason for exam). Fleischner Society criteria for the followup of incidental pulmonary nodules was implemented if appropriate. DLP: 1192 mGy-cm. FINDINGS: There is no acute intracranial hemorrhage or abnormal extra-axial collection. No intracranial mass effect or midline shift. Lateral and third ventricles are normal. No hydrocephalus. Pastrana-white matter differentiation is preserved and there is no evidence of acute territorial infarct. The calvarium and skull base are intact. Mastoid air cells and middle ear cavities are well-aerated. No active paranasal sinus disease. Cervical spine: Alignment is normal. Vertebral heights are preserved. No acute cervical spine fracture. No acute posttraumatic spinal subluxation. No abnormal prevertebral soft tissue swelling. Grossly no spinal canal stenosis. No neuroforaminal compromise. Visualized soft tissues of neck are normal. CT/CT head/brain wo IV con IMPRESSION: Unremarkable CT scan of the head and cervical spine. No acute intracranial hemorrhage. No acute cervical spine fracture.
[2023-04-05 07:58] VITALS: BP 106/68; PULSE 66; RESP 16; TEMP 36.3; O2SAT 100; BMI 23.8
[2023-04-05 08:05] VITALS: BP 106/68
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
[2023-04-05 09:05] LABS: MANUAL DIFF FLAG NO
[2023-04-05] MEDS: 0.9 % Sodium Chloride 1,000 ML 999 ML IV (09:05)
[2023-04-05 09:07] LABS: Basophils Percent Auto 0.6 % (0-2); Eosinophils Absolute Auto 0.1 X10*3/uL (0.0-0.4); Eosinophils Percent Auto 0.9 % (0-4); Hematocrit 48.2 % (42.0-52.0); Hemoglobin 16.9 g/dl (14.0-18.0); Imm Gran Abs Auto 0.01 X10*3/uL (0.00-0.03); Imm Gran Pct Auto 0.2 % (0.0-0.4); Lymphocytes Absolute Auto 1.2 X10*3/uL (1.2-4.9); Lymphocytes Percent Auto 21.3 % (20-40); Mean Corpuscular HGB Conc 35.1 g/dl (31.0-36.0); Mean Corpuscular Hemoglobin 30.8 pg (27.0-33.0); Mean Corpuscular Volume 87.8 fL (80.0-98.0); Mean Platelet Volume 9.7 fL (9.4-12.4); Monocytes Absolute Auto 0.3 X10*3/uL (0.1-1.2); Monocytes Percent Auto 5.9 % (2-11); Neutrophils Absolute Auto 3.9 x10*3/uL (2.0-8.3); Neutrophils Percent Auto 71.1 % (45-73); Platelet Count 209 X10*3/uL (160-400); Red Blood Count 5.49 X10*6/uL (4.60-5.80); Red Cell Distribution Width 12.5 % (11.0-16.0); White Blood Count 5.4 X10*3/uL (4.8-10.8)
[2023-04-05] MEDS: Cyclobenzaprine HCl 10 MG TABLET PO (09:08)
[2023-04-05 10:36] LABS: Alanine Aminotransferase 14 U/L (0-40); Albumin Level 4.2 g/dL (3.5-5.0); Alkaline Phosphatase 53 U/L (39-117); Anion Gap 13 (12-20); Aspartate Amino Transferase 17 U/L (5-37); Bilirubin Direct 0.1 mg/dL (0.0-0.5); Bilirubin Total 0.6 mg/dL (0.0-1.0); Blood Urea Nitrogen 11 mg/dL (9-16); Calcium 9.1 mg/dL (8.4-10.2); Carbon Dioxide 19 mmol/L (22-29); Chloride 113 mmol/L (96-108); Creatinine Clr Calc Pharmacy 146.8; Estimated Glomerular Filt Rate > 60; Glucose Random 104 mg/dL (60-115); Lipase 21 U/L (8-78); Potassium 4.4 mmol/L (3.3-5.1); Sodium 141 mmol/L (135-145)
[2023-04-05] MEDS: Acetaminophen 325 MG TABLET 975 MG PO (10:40)
[2023-04-05 11:17] LABS: Appearance Urine Clear; Color Urine Yellow; Glucose Urine UA Negative (Negative); Leukocyte Esterase Urine Trace (Negative); Nitrite Urine Negative (Negative); PH 6.5 (5.0-9.0); Specific Gravity - Urine 1.015 (1.005-1.025); UMIC TRIGGER UACC YES; Urine Blood Negative (Negative); Urine Ketones Negative (Negative); Urine Protein Negative (Neg-Trace)
[2023-04-05 11:20] LABS: Bacteria Urine None Seen (None Seen); Hyaline Casts Urine 0-2 /LPF (0-2); RBC Urine 0-2 /HPF (0-2); Squamous Epithelial Cell Urine 0-2 /HPF (0-2); WBC Urine 0-5 /HPF (0-5)
[2023-04-05] MEDS: iohexoL 350 MG/ML 100 ML INFUS..BTL IV (11:39)
[2023-04-05 11:41] VITALS: BP 114/63; PULSE 59; RESP 16; TEMP 36.9; O2SAT 100
[2023-04-05 12:55] VITALS: BP 109/61; PULSE 71; RESP 16; TEMP 36.3; O2SAT 99
[2023-04-05] MEDS: Morphine Sulfate 2 MG/ML CARTRIDGE IVPUSH (14:22)
== END 2023-04-05 15:06 | disposition home or self-care (01) ==
PROVIDERS: Physician Assistant; Emergency Provider Emergency Medicine
DX: S20.212A Contusion of left front wall of thorax, initial encounter (principal); W13.2XXA Fall from, out of or through roof, initial encounter; R10.12 Left upper quadrant pain; R10.32 Left lower quadrant pain; M54.50 Low back pain, unspecified; Y93.9 Activity, unspecified; Y92.018 Other place in single-family (private) house as the place of occurrence of the external cause; Y99.9 Unspecified external cause status
CPT/HCPCS: 36415; 70450; 71260; 72125; 74177; 80048; 80076; 81001; 83690; 85025; 96361; 96374; 99284; J2270; Q9967

== ENCOUNTER 2025-01-07 13:32 | Emergency (ER) | payer OTHER, SELFPAY ==
--- NOTE | ~2025-01-07 | XR_ITS ---
CLINICAL HISTORY: back pain 3 views lumbar spine Comparison: CR/SR - XR LUMBAR SPINE 2-3V - 02/12/23 16:12 EDT Findings: Straightening of the normal lordosis is either due to muscle spasm or positioning. There is satisfactory alignment of the vertebral bodies. No acute fractures or dislocation. No significant vertebral body compression deformity. No significant degenerative change. Postsurgical changes in the right lower quadrant. IMPRESSION: No acute process or significant degenerative changes. This document has been electronically signed by: Caro Martinez DO on 01/07/2025 15:13:29
--- NOTE | ~2025-01-07 | XR_ITS ---
CLINICAL HISTORY: back pain 3 views sacrum and coccyx Comparison: None Findings No acute fractures. No significant degenerative change. No erosions. Clips and sutures project over the right lower quadrant. IMPRESSION: No acute findings. This document has been electronically signed by: Caro Martinez DO on 01/07/2025 15:11:00
[2025-01-07 13:39] VITALS: BP 145/104; PULSE 76; RESP 16; TEMP 37; O2SAT 98; BMI 26.4
--- NOTE | 2025-01-07 13:47 | ED_ITS ---
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 bilateral hand pain and numbness worse at night and L >> R hand for 4 + days. He states it deeply aches and shoots up arm - no trauma reported this occured before work injury. 2. Wednesday R low back pain with shooting pain after lifting injury at work - no thinners, IVDA, no b/b incontinence no saddle anesthesia. 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 Not responding to tylenol or motrin. MD complaint: low back pain, hand pain Onset (ago): day(s) (4) Location: back, left, right and upper extremity Radiation: distal Severity: severe Quality: aching Pain Consistency: intermittent Relieving factors: immobilization Exacerbating factors: movement Associated symptoms: denies other symptoms Treatments prior to arrival: none Related Data Previous Rx's ?Medication ?Instructions ?Recorded acetaminophen 300 mg-codeine 30 mg 1 tab PO Q8H PRN pain #10 tabs 06/20/21 tablet ibuprofen 800 mg tablet 800 mg PO Q8H PRN pain #14 tabs 06/20/21 albuterol sulfate 90 mcg/actuation 2 puff inhalation Q4-6H PRN 08/19/21 aerosol inhaler (ProAir HFA) Wheezing #8.5 grams codeine 10 mg-guaifenesin 100 mg/5 10 ml PO Q4-6H PRN cough #237 mL 08/19/21 mL oral liquid levofloxacin 750 mg tablet 750 mg PO DAILY 7 days #7 tabs 08/19/21 prednisone 20 mg tablet 40 mg (2 x 20 mg) PO DAILY #10 tabs 08/19/21 clindamycin HCl 300 mg capsule 300 mg PO Q6H 5 days #20 caps 12/10/21 amoxicillin 875 mg-potassium 1 tab PO Q12H 7 days #14 tabs 07/24/22 clavulanate 125 mg tablet ondansetron 4 mg disintegrating 4 mg PO Q6-8H PRN nausea and 07/24/22 tablet vomiting #14 tabs oxycodone 5 mg tablet 5 mg PO Q4H PRN pain #14 tabs 07/24/22 doxycycline monohydrate 100 mg 100 mg PO BID Chlamydia infection 09/15/22 capsule #14 caps ibuprofen 400 mg tablet 400 mg PO Q6H PRN pain #20 tabs 09/15/22 naproxen 500 mg tablet 500 mg PO BID 7 days #14 tabs 10/12/22 cyclobenzaprine 5 mg tablet 5 mg PO TID PRN muscle spasm #10 02/12/23 tabs ibuprofen 600 mg tablet 600 mg PO Q6H PRN pain #20 tabs 02/12/23 oxycodone 5 mg tablet 5 mg PO Q6H PRN pain #14 tabs 02/12/23 acetaminophen 500 mg tablet 500 mg PO Q6H PRN fever or pain 04/05/23 (Tylenol Extra Strength) #14 tabs cyclobenzaprine 5 mg tablet 5 mg PO Q8H PRN pain (scale score 04/05/23 7-10) 5 days #14 tabs lidocaine 5 % topical patch 1 patch topical DAILY PRN pain #30 04/05/23 (Lidoderm) ea naproxen 500 mg tablet 500 mg PO BID PRN pain 10 days #20 04/05/23 tabs cyclobenzaprine 10 mg tablet 10 mg PO TID PRN muscle spasm #20 01/07/25 tabs lidocaine 5 % topical patch 1 patch topical DAILY #30 ea 01/07/25 morphine 15 mg immediate release 15 mg PO Q6H PRN pain #12 tabs 01/07/25 tablet ondansetron 4 mg disintegrating 4 mg PO Q8H PRN nausea and 01/07/25 tablet vomiting #20 tabs prednisone 20 mg tablet 40 mg (2 x 20 mg) PO DAILY 5 days 01/07/25 #10 tabs Allergies Allergy/AdvReac Type Severity Reaction Status Date / Time No Known Allergies Allergy Verified 01/07/25 13:45 Review of Systems Review of Systems: Constitutional : No Weight loss, No Fever, No Chills, ENT/Mouth : No Hearing loss, No Ear Pain, No Nasal Congestion, No Sinus Pain, No Hoarseness, No sore throat, No Rhinorrhea, No Swallowing Difficulty Cardiovascular : No Chest Pain, No SOB Respiratory : No Cough, No Dyspnea Gastrointestinal : No Nausea, No Vomiting, No Diarrhea, No abdominal Pain, No Hematochezia, No Melena Genitourinary : No Dysuria, No Urinary Frequency, No Hematuria, No Urinary Incontinence, Musculoskeletal : positive back pain Skin : No Skin Lesions, No rash Neuro : No Weakness, No Numbness, No Paresthesias, no loss of bowel or bladder incontinence, no saddle anesthesia all other systems reviewed and are negative [facility] Past Medical History Attestation statement: The following information was validated with the patient. Source: old records reviewed Medical History Asthma Social History Social History Alcohol intake: never Patient Tobacco Use Status: Current everyday Tobacco user Substance Use Type: Marijuana Advance Directives: No Advance Directives Information Provided: No Physical Exam ED Vital Signs: Vital Signs - 24 hr 01/07/25 13:39 01/07/25 17:45 Temperature 98.6 F 98.6 F Pulse Rate 76 76 Respiratory Rate 16 16 Blood Pressure 145/104 H 145/104 H Pulse Oximetry 98 98 Oxygen Delivery Method Room Air Room Air BMI result Body Mass Index 26.4 Appearance: Alert. Oriented X3. No acute distress. Eyes: Pupils equal, round and reactive to light. ENT: Pharynx normal. Neck: Normal inspection. Neck supple. CVS: Normal heart rate and rhythm. Pulses normal. Respiratory: No respiratory distress. Breath sounds normal. Abdomen: Soft and nontender. Back: R low back ttp reproduces pain, SILT intact in LE 2+ DTR in achilles, able to walk with limp Skin: Skin warm and dry. Normal skin color. Normal skin turgor. Extremities: No lower extremity edema. No calf ttp . Both hands 2+ radial pulse, no swelling or mass felt, SILT intact + tinels and phalens test on each hand L >>> R. 2+ radial pulse bilaterally Neuro: Oriented X 3. No motor deficit. No sensory deficit. CN2-12 intact Course Course Course Narrative: RME: 34-year-old male presents to ED for low back pain that occurred at work. Patient pulled a pallet and it feel causing him to pull his back and hear a cr ack ever since.. Patient denies any urinary/bowel incontinence. positive lumbar spine/sacral tendernss. xrays ordered. Medical Decision Making Medical Decision Making [facility] Narrative: 34 yo male with PMH of asthma here with c/o bilateral hand pain but he is NV intact on exam and no trauma or signs of infection at this time based of exam suspect CT syndrome - splints and steroids ordered along with ortho referral. He also c/o low back injury and pain at this time no b/b incontinence or saddle an esthesia he has no red flags on exam - muscle relaxers, steroids, analgesia and refer to work connection and PCP. Differential Diagnosis Differential Diagnoses: The differential diagnosis associated with the presentation includes CTR, back pain, disc herniation Independent Interpretation I performed an independent interpretation of an: Plain X-Ray (no trauma) Radiology Impression Discussion of test interpretation with radiology: I have reviewed the radiologist's reading. Independent Historian Clinical information obtained from an independent historian. History obtained from or confirmed by: Spouse External Record Review External record reviewed: Outpatient record Prescription Management I considered prescription management with: Pain Medication and Other Discharge Plan Discharge Clinical Impression: Acute carpal tunnel syndrome Qualifiers: Laterality: unspecified laterality Qualified Code(s): G56.00 - Carpal tunnel syndrome, unspecified upper limb Low back pain Qualifiers: Chronicity: acute Back pain laterality: right Sciatica presence: with sciatica Sciatica laterality: sciatica of right side Qualified Code(s): M54.41 - Lumbago with sciatica, right side Patient Disposition: Home, Self-Care Instructions: Acute Low Back Pain (ED), Paresthesia (ED) Additional Instructions: xrays show no acute broken bones wear splints as much as possible including at night please follow up with work connection you also need to call our hand surgeon return for any worsening symptoms or concerns such as loss of control of bowel or bladder or any other concerns. Prescriptions: New cyclobenzaprine 10 mg tablet 10 mg PO TID PRN (Reason: muscle spasm) Qty: 20 0RF prednisone 20 mg tablet 40 mg PO DAILY 5 Days Qty: 10 0RF lidocaine 5 % adhesive patch,medicated 1 patch topical DAILY Qty: 30 0RF Rx Instructions: leave on most painful area for up to 12 hrs morphine 15 mg tablet 15 mg PO Q6H PRN (Reason: pain) Qty: 12 0RF Rx Instructions: partial fill okay; Partial Fill upon patient request. ondansetron 4 mg tablet,disintegrating 4 mg PO Q8H PRN (Reason: nausea and vomiting) Qty: 20 0RF No Action ibuprofen 800 mg tablet 800 mg PO Q8H PRN (Reason: pain) Qty: 14 0RF acetaminophen-codeine 300-30 mg tablet 1 tab PO Q8H PRN (Reason: pain) Qty: 10 0RF levofloxacin 750 mg tablet 750 mg PO DAILY 7 Days Qty: 7 0RF prednisone 20 mg tablet 40 mg PO DAILY Qty: 10 0RF codeine-guaifenesin 10-100 mg/5 mL liquid 10 ml PO Q4-6H PRN (Reason: cough) Qty: 237 0RF albuterol sulfate [ProAir HFA] 90 mcg/actuation HFA aerosol inhaler 2 puff inhalation Q4-6H PRN (Reason: Wheezing) Qty: 8.5 0RF ibuprofen 400 mg tablet 400 mg PO Q6H PRN (Reason: pain) Qty: 20 0RF doxycycline monohydrate 100 mg capsule 100 mg PO BID Qty: 14 0RF naproxen 500 mg tablet 500 mg PO BID 7 Days Qty: 14 0RF clindamycin HCl 300 mg capsule 300 mg PO Q6H 5 Days Qty: 20 0RF amoxicillin-pot clavulanate 875-125 mg tablet 1 tab PO Q12H 7 Days Qty: 14 0RF oxycodone 5 mg tablet 5 mg PO Q4H PRN (Reason: pain) Qty: 14 0RF Rx Instructions: Patient may request partial fill; Partial Fill upon patient request. ondansetron 4 mg tablet,disintegrating 4 mg PO Q6-8H PRN (Reason: nausea and vomiting) Qty: 14 0RF ibuprofen 600 mg tablet 600 mg PO Q6H PRN (Reason: pain) Qty: 20 0RF cyclobenzaprine 5 mg tablet 5 mg PO TID PRN (Reason: muscle spasm) Qty: 10 0RF oxycodone 5 mg tablet 5 mg PO Q6H PRN (Reason: pain) Qty: 14 0RF Rx Instructions: Partial Fill upon patient request. acetaminophen [Tylenol Extra Strength] 500 mg tablet 500 mg PO Q6H PRN (Reason: fever or pain) Qty: 14 0RF lidocaine [Lidoderm] 5 % adhesive patch,medicated 1 patch topical DAILY MDD remove after 12 hours PRN (Reason: pain) Qty: 30 0RF Rx Instructions: leave on most painful area for up to 12 hrs naproxen 500 mg tablet 500 mg PO BID PRN (Reason: pain) 10 Days Qty: 20 0RF cyclobenzaprine 5 mg tablet 5 mg PO Q8H PRN (Reason: pain (scale score 7-10)) 5 Days Qty: 14 0RF Referrals: [facility] [Provider Group] Stand Alone Forms: Work/School Release Interventions: ED Discharge Assessment Last Done: 01/07/25 17:45 Discharge Date/Time: 01/07/25 17:46 Print Language: Jamaican
[2025-01-07 17:45] VITALS: BP 145/104; PULSE 76; RESP 16; TEMP 37; O2SAT 98
== END 2025-01-07 17:46 | disposition home or self-care (01) ==
PROVIDERS: Emergency Provider Emergency Medicine
DX: S39.92XA Unspecified injury of lower back, initial encounter (principal); G56.00 Carpal tunnel syndrome, unspecified upper limb; M54.41 Lumbago with sciatica, right side; M53.3 Sacrococcygeal disorders, not elsewhere classified; M79.642 Pain in left hand; M79.641 Pain in right hand; X50.0XXA Overexertion from strenuous movement or load, initial encounter; X50.9XXA Other and unspecified overexertion or strenuous movements or postures, initial encounter; Y93.9 Activity, unspecified; Y92.9 Unspecified place or not applicable; Y99.0 Civilian activity done for income or pay; F17.210 Nicotine dependence, cigarettes, uncomplicated
CPT/HCPCS: 72100; 72220; 99283

== ENCOUNTER → 2025-01-07 13:45 | Outpatient (BNV) | payer MEDICAID, SELFPAY | PROVIDERS: Visit Provider Radiology Diagnostic Radiology | DX: M54.50 Low back pain, unspecified (principal) | CPT/HCPCS: 72100; 72220 ==

== ENCOUNTER 2025-03-13 06:08 | Emergency (ER) | payer SELFPAY ==
[2025-03-13 06:10] VITALS: BP 118/72; PULSE 67; RESP 18; TEMP 36.7; O2SAT 99; BMI 26.9
--- NOTE | 2025-03-13 08:23 | ED.BACK ---
HPI - Back Pain/Injury General Chief Complaint: Back Pain/Injury Stated Complaint: Back Pain Time Seen by Provider: 03/13/25 07:57 Source: patient Mode of arrival: ambulatory Limitations: no limitations History of Present Illness HPI Narrative: this is a 34 years old male presented ambulatory to the emergency department complaining of lower back pain he states that he was working on his own car on Wednesday and lift heavy objects and since then he has been having pain which is radiating to the left leg no weakness no urine incontinence no saddle anesthesia he is fully ambulatory to the ED he has a history of prior back pain MD elicited complaint: back pain Pertinent past history: prior back pain Onset (ago): day(s) (2) Timing: constant Severity: moderate Quality: burning Location: lumbar spine Radiation: none Exacerbating factors: none Relieving factors: none Associated symptoms: denies other symptoms Related Data Previous Rx's ?Medication ?Instructions ?Recorded acetaminophen 300 mg-codeine 30 mg 1 tab PO Q8H PRN pain #10 tabs 06/20/21 tablet ibuprofen 800 mg tablet 800 mg PO Q8H PRN pain #14 tabs 06/20/21 albuterol sulfate 90 mcg/actuation 2 puff inhalation Q4-6H PRN 08/19/21 aerosol inhaler (ProAir HFA) Wheezing #8.5 grams codeine 10 mg-guaifenesin 100 mg/5 10 ml PO Q4-6H PRN cough #237 mL 08/19/21 mL oral liquid levofloxacin 750 mg tablet 750 mg PO DAILY 7 days #7 tabs 08/19/21 prednisone 20 mg tablet 40 mg (2 x 20 mg) PO DAILY #10 tabs 08/19/21 clindamycin HCl 300 mg capsule 300 mg PO Q6H 5 days #20 caps 12/10/21 amoxicillin 875 mg-potassium 1 tab PO Q12H 7 days #14 tabs 07/24/22 clavulanate 125 mg tablet ondansetron 4 mg disintegrating 4 mg PO Q6-8H PRN nausea and 07/24/22 tablet vomiting #14 tabs oxycodone 5 mg tablet 5 mg PO Q4H PRN pain #14 tabs 07/24/22 doxycycline monohydrate 100 mg 100 mg PO BID Chlamydia infection 09/15/22 capsule #14 caps ibuprofen 400 mg tablet 400 mg PO Q6H PRN pain #20 tabs 09/15/22 naproxen 500 mg tablet 500 mg PO BID 7 days #14 tabs 10/12/22 cyclobenzaprine 5 mg tablet 5 mg PO TID PRN muscle spasm #10 02/12/23 tabs ibuprofen 600 mg tablet 600 mg PO Q6H PRN pain #20 tabs 02/12/23 oxycodone 5 mg tablet 5 mg PO Q6H PRN pain #14 tabs 02/12/23 acetaminophen 500 mg tablet 500 mg PO Q6H PRN fever or pain 04/05/23 (Tylenol Extra Strength) #14 tabs cyclobenzaprine 5 mg tablet 5 mg PO Q8H PRN pain (scale score 04/05/23 7-10) 5 days #14 tabs lidocaine 5 % topical patch 1 patch topical DAILY PRN pain #30 04/05/23 (Lidoderm) ea naproxen 500 mg tablet 500 mg PO BID PRN pain 10 days #20 04/05/23 tabs cyclobenzaprine 10 mg tablet 10 mg PO TID PRN muscle spasm #20 01/07/25 tabs lidocaine 5 % topical patch 1 patch topical DAILY #30 ea 01/07/25 morphine 15 mg immediate release 15 mg PO Q6H PRN pain #12 tabs 01/07/25 tablet ondansetron 4 mg disintegrating 4 mg PO Q8H PRN nausea and 01/07/25 tablet vomiting #20 tabs prednisone 20 mg tablet 40 mg (2 x 20 mg) PO DAILY 5 days 01/07/25 #10 tabs naproxen 500 mg tablet (Naprosyn) 500 mg PO BID PRN PAIN #20 tabs 03/13/25 prednisone 20 mg tablet 60 mg (3 x 20 mg) PO DAILY #12 tabs 03/13/25 Allergies Allergy/AdvReac Type Severity Reaction Status Date / Time No Known Allergies Allergy Verified 03/13/25 06:11 Review of Systems ENT: Reports system reviewed and no additional complaints, except as documented Respiratory: Respiratory: Reports no additional respiratory complaints Musculoskeletal: Musculoskeletal: Reports as per [facility] Past Medical History Attestation statement: The following information was validated with the patient. [facility] Narrative: chronic lower back pain Medical History Asthma Social History Social History Alcohol intake: never Patient Tobacco Use Status: Current everyday Tobacco user Substance Use Type: Marijuana Advance Directives: No Advance Directives Information Provided: Yes Do you have a plan to hurt others: No Plan Physical Exam Vital Signs: Vital Signs: Last Vital Signs Temp 0 F L 03/13/25 08:51 Pulse 70 03/13/25 08:51 Resp 16 03/13/25 08:51 BP 123/79 03/13/25 08:51 Pulse Ox 98 03/13/25 08:51 O2 Del Method Room Air 03/13/25 08:51 BMI result Body Mass Index 26.9 patient looks well not toxic appearing Const: General: cooperative Orientation/consciousness: oriented to person and patient oriented x3 Limitations: no limitations HEENT: Head: Yes normal to inspection General nose exam: Normal external nose present Face and sinus: Yes normal facial exam Neck: Neck: Yes normal visual inspection and Yes full ROM Chest: Chest palpation & inspection: normal inspection of the chest Resp: Effort & Inspection: normal respiratory effort Auscultation: clear to auscultation bilaterally Cardio: Jugular venous distension: no JVD Rate: regular rate Rhythm: regular rhythm GI: Inspection: Yes normal to inspection Palpation (GI): Soft to palpation, not firm and nontender Back/Spine/Pelvis: Other: tenderness in the LS spine Neuro: Other: reflexes symmetrical present General: oriented to person and patient oriented x3 Cranial nerves: Yes CN's II-XII intact bilaterally Cognition (Neuro): normal cognition Gait exam (Neuro): Normal gait present Motor exam (neuro): 5/5 motor strength present throughout Medical Decision Making Medical Decision Making MDM Narrative: patient is here complaining of lower back pain is neuro exam is normal reflexes normal no red flags no saddle anesthesia no fever no history of drug abuse I think he can be discharged home further workup can be done as outpatient such as MRI Differential Diagnosis lower back pain /muscular pain /sciatic /unlikely fracture no trauma direct Admission/Observation Consideration of admission/observation: Escalation of care including admission/observation considered Tests considered The following testing was considered but not selected: I considered to do an MRI however neurologically intact is walking without any problem no red flags so we will hold emergent MRI Discharge Plan Discharge Clinical Impression: Lumbar radiculopathy Patient Disposition: Home, Self-Care Instructions: Back Pain (ED) Additional Instructions: follow-up with your primary care physician return to the emergency room if you worse Prescriptions: New naproxen [Naprosyn] 500 mg tablet 500 mg PO BID PRN (Reason: PAIN) Qty: 20 0RF prednisone 20 mg tablet 60 mg PO DAILY Qty: 12 0RF No Action ibuprofen 800 mg tablet 800 mg PO Q8H PRN (Reason: pain) Qty: 14 0RF acetaminophen-codeine 300-30 mg tablet 1 tab PO Q8H PRN (Reason: pain) Qty: 10 0RF levofloxacin 750 mg tablet 750 mg PO DAILY 7 Days Qty: 7 0RF prednisone 20 mg tablet 40 mg PO DAILY Qty: 10 0RF codeine-guaifenesin 10-100 mg/5 mL liquid 10 ml PO Q4-6H PRN (Reason: cough) Qty: 237 0RF albuterol sulfate [ProAir HFA] 90 mcg/actuation HFA aerosol inhaler 2 puff inhalation Q4-6H PRN (Reason: Wheezing) Qty: 8.5 0RF ibuprofen 400 mg tablet 400 mg PO Q6H PRN (Reason: pain) Qty: 20 0RF doxycycline monohydrate 100 mg capsule 100 mg PO BID Qty: 14 0RF naproxen 500 mg tablet 500 mg PO BID 7 Days Qty: 14 0RF clindamycin HCl 300 mg capsule 300 mg PO Q6H 5 Days Qty: 20 0RF amoxicillin-pot clavulanate 875-125 mg tablet 1 tab PO Q12H 7 Days Qty: 14 0RF oxycodone 5 mg tablet 5 mg PO Q4H PRN (Reason: pain) Qty: 14 0RF Rx Instructions: Patient may request partial fill; Partial Fill upon patient request. ondansetron 4 mg tablet,disintegrating 4 mg PO Q6-8H PRN (Reason: nausea and vomiting) Qty: 14 0RF ibuprofen 600 mg tablet 600 mg PO Q6H PRN (Reason: pain) Qty: 20 0RF cyclobenzaprine 5 mg tablet 5 mg PO TID PRN (Reason: muscle spasm) Qty: 10 0RF oxycodone 5 mg tablet 5 mg PO Q6H PRN (Reason: pain) Qty: 14 0RF Rx Instructions: Partial Fill upon patient request. cyclobenzaprine 10 mg tablet 10 mg PO TID PRN (Reason: muscle spasm) Qty: 20 0RF prednisone 20 mg tablet 40 mg PO DAILY 5 Days Qty: 10 0RF lidocaine 5 % adhesive patch,medicated 1 patch topical DAILY Qty: 30 0RF Rx Instructions: leave on most painful area for up to 12 hrs morphine 15 mg tablet 15 mg PO Q6H PRN (Reason: pain) Qty: 12 0RF Rx Instructions: partial fill okay; Partial Fill upon patient request. ondansetron 4 mg tablet,disintegrating 4 mg PO Q8H PRN (Reason: nausea and vomiting) Qty: 20 0RF acetaminophen [Tylenol Extra Strength] 500 mg tablet 500 mg PO Q6H PRN (Reason: fever or pain) Qty: 14 0RF lidocaine [Lidoderm] 5 % adhesive patch,medicated 1 patch topical DAILY MDD remove after 12 hours PRN (Reason: pain) Qty: 30 0RF Rx Instructions: leave on most painful area for up to 12 hrs naproxen 500 mg tablet 500 mg PO BID PRN (Reason: pain) 10 Days Qty: 20 0RF cyclobenzaprine 5 mg tablet 5 mg PO Q8H PRN (Reason: pain (scale score 7-10)) 5 Days Qty: 14 0RF Referrals: Physician,Unknown J [Primary Care Provider] - 2 days Stand Alone Forms: Work/School Release Interventions: ED Discharge Assessment Last Done: 03/13/25 08:51 Discharge Date/Time: 03/13/25 08:51 Print Language: Algerian
[2025-03-13 08:51] VITALS: BP 123/79; PULSE 70; RESP 16; TEMP -17.7; TEMP 0; O2SAT 98
== END 2025-03-13 08:51 | disposition home or self-care (01) ==
PROVIDERS: Emergency Provider Emergency Medicine
DX: M54.16 Radiculopathy, lumbar region (principal); M54.50 Low back pain, unspecified
CPT/HCPCS: 99282; 99283

== ENCOUNTER 2025-04-20 19:32 | Emergency (ER) | payer SELFPAY ==
[2025-04-20 20:19] VITALS: BP 122/74; PULSE 59; RESP 16; TEMP 36.6; O2SAT 99; BMI 27.0
[2025-04-20 20:20] VITALS: BP 122/74; PULSE 59; RESP 16; TEMP 36.6; O2SAT 99
--- NOTE | 2025-04-20 20:23 | ED_ITS ---
HPI - Back Pain/Injury General Chief Complaint: Back Pain/Injury Stated Complaint: back pain resulting in tingly fingers on both hand Time Seen by Provider: 04/20/25 20:30 Source: patient Mode of arrival: ambulatory Limitations: no limitations History of Present Illness ED Provider: Cassie Brooks PA-C HPI Narrative: 35 yo male presenting to the ER for evaluation of Related Data Previous Rx's ?Medication ?Instructions ?Recorded acetaminophen 300 mg-codeine 30 mg 1 tab PO Q8H PRN pa in #10 tabs 06/20/21 tablet ibuprofen 800 mg tablet 800 mg PO Q8H PRN pain #14 t abs 06/20/21 albuterol sulfate 90 mcg/actuation 2 puff inhalation Q 4-6H PRN 08/19/21 aerosol inhaler (ProAir HFA) Wheezing #8.5 grams codeine 10 mg-guaifenesin 100 mg/5 10 ml PO Q4-6H PRN cough #237 mL 08/19/21 mL oral liquid levofloxacin 750 mg tablet 750 mg PO DAILY 7 days #7 t abs 08/19/21 prednisone 20 mg tablet 40 mg (2 x 20 mg) PO DAILY # 10 tabs 08/19/21 clindamycin HCl 300 mg capsule 300 mg PO Q6H 5 days #2 0 caps 12/10/21 amoxicillin 875 mg-potassium 1 tab PO Q12H 7 days #14 tabs 07/24/22 clavulanate 125 mg tablet ondansetron 4 mg disintegrating 4 mg PO Q6-8H PRN naus ea and 07/24/22 tablet vomiting #14 tabs oxycodone 5 mg tablet 5 mg PO Q4H PRN pain #14 tab s 07/24/22 doxycycline monohydrate 100 mg 100 mg PO BID Chlamydia infection 09/15/22 capsule #14 caps ibuprofen 400 mg tablet 400 mg PO Q6H PRN pain #20 t abs 09/15/22 naproxen 500 mg tablet 500 mg PO BID 7 days #14 tab s 10/12/22 cyclobenzaprine 5 mg tablet 5 mg PO TID PRN muscle spa sm #10 02/12/23 tabs ibuprofen 600 mg tablet 600 mg PO Q6H PRN pain #20 t abs 02/12/23 oxycodone 5 mg tablet 5 mg PO Q6H PRN pain #14 tab s 02/12/23 acetaminophen 500 mg tablet 500 mg PO Q6H PRN fever or pain 04/05/23 (Tylenol Extra Strength) #14 tabs cyclobenzaprine 5 mg tablet 5 mg PO Q8H PRN pain (scal e score 04/05/23 7-10) 5 days #14 tabs lidocaine 5 % topical patch 1 patch topical DAILY PRN pain #30 04/05/23 (Lidoderm) ea naproxen 500 mg tablet 500 mg PO BID PRN pain 10 da ys #20 04/05/23 tabs cyclobenzaprine 10 mg tablet 10 mg PO TID PRN muscle s pasm #20 01/07/25 tabs lidocaine 5 % topical patch 1 patch topical DAILY #30 ea 01/07/25 morphine 15 mg immediate release 15 mg PO Q6H PRN pain #12 tabs 01/07/25 tablet ondansetron 4 mg disintegrating 4 mg PO Q8H PRN nausea and 01/07/25 tablet vomiting #20 tabs prednisone 20 mg tablet 40 mg (2 x 20 mg) PO DAILY 5 days 01/07/25 #10 tabs naproxen 500 mg tablet (Naprosyn) 500 mg PO BID PRN PA IN #20 tabs 03/13/25 prednisone 20 mg tablet 60 mg (3 x 20 mg) PO DAILY # 12 tabs 03/13/25 cyclobenzaprine 10 mg tablet 10 mg PO TID PRN muscle s pasm #14 04/20/25 tabs ibuprofen 600 mg tablet 600 mg PO TID PRN pain #14 t abs 04/20/25 lidocaine 5 % topical patch 1 patch topical DAILY #15 ea 04/20/25 Allergies Allergy/AdvReac Type Severity Reaction Status Date / Time No Known Allergies Allergy Verified 04/20/25 20:20 [facility] Past Medical History Medical History Asthma Social History Social History Alcohol intake: never Patient Tobacco Use Status: Current everyday Tobacco user Substance Use Type: Marijuana Advance Directives: No Advance Directives Information Provided: Yes Physical Exam Vital Signs: Vital Signs: Last Vital Signs Temp 97.9 F 04/20/25 20:19 Pulse 59 04/20/25 20:19 Resp 16 04/20/25 20:19 BP 122/74 04/20/25 20:19 Pulse Ox 99 04/20/25 20:19 O2 Del Method Room Air 04/20/25 20:19 BMI result Body Mass Index 27.0 Medications Administered Discontinued Medications Generic Name Dose Route Start Last Admin Trade Name Freq PRN Reason Stop Dose Admin Cyclobenzaprine HCl 10 mg 04/20/25 20:29 04/20/25 20:35 Cyclobenzaprine Hcl 10 Mg Tablet PO 04/20/25 20:30 10 mg ONCE ONE Administration Ketorolac Tromethamine 30 mg 04/20/25 20:29 04/20/25 20:35 Ketorolac Tromethamine 30 Mg/Ml Vial IM 04/20/25 20:30 30 mg ONCE ONE Administration Lidocaine 1 patch 04/20/25 20:29 04/20/25 20:38 Lidocaine 4 % Patch Adh..Patch TRANSDERMA 04/20/25 20:30 1 patch ONCE ONE Administration Protocol Medical Decision Making Differential Diagnosis Differential Diagnoses: The differential diagnosis associated with the presentation includes Admission/Observation Consideration of admission/observation: Escalation of care including admission/observation considered Discharge Plan Discharge Clinical Impression: Strain of lumbar region Qualifiers: Encounter type: initial encounter Qualified Code(s): S39.012A - Strain of muscle, fascia and tendon of lower back, initial encounter Patient Disposition: Home, Self-Care Instructions: Low Back Strain (ED), Lower Back Exercises (ED) Additional Instructions: Your pain is most likely due to muscle strain and spasm. No bending, lifting or twisting. Use ice several times per day for 20 minutes at a time for the next 48 hours and then change to heat. Take medications as prescribed to help with pain and discomfort. Follow up with your Primary Care Doctor this week. If your pain worsens, if you develop new numbness, tingling, weakness, loss of function or incontinence call 911 or come back to the ER right away for evaluation. Prescriptions: New ibuprofen 600 mg tablet 600 mg PO TID PRN (Reason: pain) Qty: 14 0RF cyclobenzaprine 10 mg tablet 10 mg PO TID PRN (Reason: muscle spasm) Qty: 14 0RF lidocaine 5 % adhesive patch,medicated 1 patch topical DAILY Qty: 15 0RF Rx Instructions: leave on most painful area for up to 12 hrs No Action ibuprofen 800 mg tablet 800 mg PO Q8H PRN (Reason: pain) Qty: 14 0RF acetaminophen-codeine 300-30 mg tablet 1 tab PO Q8H PRN (Reason: pain) Qty: 10 0RF levofloxacin 750 mg tablet 750 mg PO DAILY 7 Days Qty: 7 0RF prednisone 20 mg tablet 40 mg PO DAILY Qty: 10 0RF codeine-guaifenesin 10-100 mg/5 mL liquid 10 ml PO Q4-6H PRN (Reason: cough) Qty: 237 0RF albuterol sulfate [ProAir HFA] 90 mcg/actuation HFA aerosol inhaler 2 puff inhalation Q4-6H PRN (Reason: Wheezing) Qty: 8.5 0RF ibuprofen 400 mg tablet 400 mg PO Q6H PRN (Reason: pain) Qty: 20 0RF doxycycline monohydrate 100 mg capsule 100 mg PO BID Qty: 14 0RF naproxen 500 mg tablet 500 mg PO BID 7 Days Qty: 14 0RF clindamycin HCl 300 mg capsule 300 mg PO Q6H 5 Days Qty: 20 0RF amoxicillin-pot clavulanate 875-125 mg tablet 1 tab PO Q12H 7 Days Qty: 14 0RF oxycodone 5 mg tablet 5 mg PO Q4H PRN (Reason: pain) Qty: 14 0RF Rx Instructions: Patient may request partial fill; Partial Fill upon patient request. ondansetron 4 mg tablet,disintegrating 4 mg PO Q6-8H PRN (Reason: nausea and vomiting) Qty: 14 0RF ibuprofen 600 mg tablet 600 mg PO Q6H PRN (Reason: pain) Qty: 20 0RF cyclobenzaprine 5 mg tablet 5 mg PO TID PRN (Reason: muscle spasm) Qty: 10 0RF oxycodone 5 mg tablet 5 mg PO Q6H PRN (Reason: pain) Qty: 14 0RF Rx Instructions: Partial Fill upon patient request. cyclobenzaprine 10 mg tablet 10 mg PO TID PRN (Reason: muscle spasm) Qty: 20 0RF prednisone 20 mg tablet 40 mg PO DAILY 5 Days Qty: 10 0RF lidocaine 5 % adhesive patch,medicated 1 patch topical DAILY Qty: 30 0RF Rx Instructions: leave on most painful area for up to 12 hrs morphine 15 mg tablet 15 mg PO Q6H PRN (Reason: pain) Qty: 12 0RF Rx Instructions: partial fill okay; Partial Fill upon patient request. ondansetron 4 mg tablet,disintegrating 4 mg PO Q8H PRN (Reason: nausea and vomiting) Qty: 20 0RF naproxen [Naprosyn] 500 mg tablet 500 mg PO BID PRN (Reason: PAIN) Qty: 20 0RF prednisone 20 mg tablet 60 mg PO DAILY Qty: 12 0RF acetaminophen [Tylenol Extra Strength] 500 mg tablet 500 mg PO Q6H PRN (Reason: fever or pain) Qty: 14 0RF lidocaine [Lidoderm] 5 % adhesive patch,medicated 1 patch topical DAILY MDD remove after 12 hours PRN (Reason: pain) Qty: 30 0RF Rx Instructions: leave on most painful area for up to 12 hrs naproxen 500 mg tablet 500 mg PO BID PRN (Reason: pain) 10 Days Qty: 20 0RF cyclobenzaprine 5 mg tablet 5 mg PO Q8H PRN (Reason: pain (scale score 7-10)) 5 Days Qty: 14 0RF Stand Alone Forms: Work/School Release Print Language: Polish
[2025-04-20] MEDS: Cyclobenzaprine HCl 10 MG TABLET PO (20:35)
[2025-04-20] MEDS: Ketorolac Tromethamine 30 MG/ML VIAL IM (20:35)
[2025-04-20] MEDS: Lidocaine 4 % Patch ADH..PATCH 1 PATCH TRANSDERMA (20:38)
== END 2025-04-20 20:40 | disposition home or self-care (01) ==
PROVIDERS: Emergency Provider Emergency Medicine Emergency Medical Services
DX: S39.012A Strain of muscle, fascia and tendon of lower back, initial encounter (principal); X58.XXXA Exposure to other specified factors, initial encounter; Y93.9 Activity, unspecified; Y92.9 Unspecified place or not applicable; Y99.8 Other external cause status; Z79.899 Other long term (current) drug therapy; F17.210 Nicotine dependence, cigarettes, uncomplicated
CPT/HCPCS: 96372; 99283; 99284; J1885

== ENCOUNTER 2025-05-15 14:48 | Emergency (ER) | payer SELFPAY ==
--- NOTE | ~2025-05-15 | CT_ITS ---
CLINICAL HISTORY: RLQ pain previous appendectomy CT abdomen and pelvis with contrast Comparison: CT - CT ABDOMEN PELVIS W IV CON - 05/15/25 16:57 EDT Findings: The study is somewhat limited by motion artifact. Lung bases are clear. The liver, gallbladder, adrenal glands and pancreas are normal. The spleen is borderline prominent Kidneys ureters and bladder are normal. No bowel obstruction or free air. No pneumatosis, free fluid or abscess. Engorgement of the vasa recta. Scattered gas and fluid throughout nondistended small and large bowel. No acute osseous finding. Impression: Findings suggest mild enteritis. No bowel obstruction, free air, free fluid or abscess. Borderline splenomegaly. This document has been electronically signed by: Norm Gustafson MD on 05/15/2025 18:13:28
[2025-05-15 14:59] VITALS: BP 116/70; PULSE 63; RESP 18; TEMP 36.8; O2SAT 99; BMI 27.1
--- NOTE | 2025-05-15 15:01 | ED_ITS ---
HPI - Abdominal Pain General Chief Complaint: Nausea/Vomiting/Diarrhea Stated Complaint: n/v/d Time Seen by Provider: 05/15/25 16:44 Source: patient, RN notes reviewed and old records reviewed Mode of arrival: ambulatory Limitations: no limitations History of Present Illness ED Provider: Jesus HPI narrative: 35-year-old male presents for evaluation of right lower abdominal pain. His abdominal pain started yesterday with associated nausea and vomiting. He reports that about 2 years ago while in [place] he had a similar pain and had surgery that he thought was to remove his appendix. He had a similar pain 2 months later and when he went to [facility] they told him that he still had his appendix and they removed his appendix His pain is worse with movement. Denies any black or bloody stool. His pain is 05/10 Related Data Previous Rx's ?Medication ?Instructions ?Recorded acetaminophen 300 mg-codeine 30 mg 1 tab PO Q8H PRN pa in #10 tabs 06/20/21 tablet ibuprofen 800 mg tablet 800 mg PO Q8H PRN pain #14 t abs 06/20/21 albuterol sulfate 90 mcg/actuation 2 puff inhalation Q 4-6H PRN 08/19/21 aerosol inhaler (ProAir HFA) Wheezing #8.5 grams codeine 10 mg-guaifenesin 100 mg/5 10 ml PO Q4-6H PRN cough #237 mL 08/19/21 mL oral liquid levofloxacin 750 mg tablet 750 mg PO DAILY 7 days #7 t abs 08/19/21 prednisone 20 mg tablet 40 mg (2 x 20 mg) PO DAILY # 10 tabs 08/19/21 clindamycin HCl 300 mg capsule 300 mg PO Q6H 5 days #2 0 caps 12/10/21 amoxicillin 875 mg-potassium 1 tab PO Q12H 7 days #14 tabs 07/24/22 clavulanate 125 mg tablet ondansetron 4 mg disintegrating 4 mg PO Q6-8H PRN naus ea and 07/24/22 tablet vomiting #14 tabs oxycodone 5 mg tablet 5 mg PO Q4H PRN pain #14 tab s 07/24/22 doxycycline monohydrate 100 mg 100 mg PO BID Chlamydia infection 09/15/22 capsule #14 caps ibuprofen 400 mg tablet 400 mg PO Q6H PRN pain #20 t abs 09/15/22 naproxen 500 mg tablet 500 mg PO BID 7 days #14 tab s 10/12/22 cyclobenzaprine 5 mg tablet 5 mg PO TID PRN muscle spa sm #10 02/12/23 tabs ibuprofen 600 mg tablet 600 mg PO Q6H PRN pain #20 t abs 02/12/23 oxycodone 5 mg tablet 5 mg PO Q6H PRN pain #14 tab s 02/12/23 acetaminophen 500 mg tablet 500 mg PO Q6H PRN fever or pain 04/05/23 (Tylenol Extra Strength) #14 tabs cyclobenzaprine 5 mg tablet 5 mg PO Q8H PRN pain (scal e score 04/05/23 7-10) 5 days #14 tabs lidocaine 5 % topical patch 1 patch topical DAILY PRN pain #30 04/05/23 (Lidoderm) ea naproxen 500 mg tablet 500 mg PO BID PRN pain 10 da ys #20 04/05/23 tabs cyclobenzaprine 10 mg tablet 10 mg PO TID PRN muscle s pasm #20 01/07/25 tabs lidocaine 5 % topical patch 1 patch topical DAILY #30 ea 01/07/25 morphine 15 mg immediate release 15 mg PO Q6H PRN pain #12 tabs 01/07/25 tablet ondansetron 4 mg disintegrating 4 mg PO Q8H PRN nausea and 01/07/25 tablet vomiting #20 tabs prednisone 20 mg tablet 40 mg (2 x 20 mg) PO DAILY 5 days 01/07/25 #10 tabs naproxen 500 mg tablet (Naprosyn) 500 mg PO BID PRN PA IN #20 tabs 03/13/25 prednisone 20 mg tablet 60 mg (3 x 20 mg) PO DAILY # 12 tabs 03/13/25 cyclobenzaprine 10 mg tablet 10 mg PO TID PRN muscle s pasm #14 04/20/25 tabs ibuprofen 600 mg tablet 600 mg PO TID PRN pain #14 t abs 04/20/25 lidocaine 5 % topical patch 1 patch topical DAILY #15 ea 04/20/25 ondansetron 4 mg disintegrating 4 mg PO Q8H PRN nausea and 05/15/25 tablet vomiting #20 tabs Allergies Allergy/AdvReac Type Severity Reaction Status Date / Time No Known Allergies Allergy Verified 05/15/25 15:01 Review of Systems Constitutional: Denies body ache(s), Denies chills, Denies fever(s) and Denies headache(s) Eyes: Denies blurry vision Denies dizziness and Denies headache(s) Cardiovascular: Denies chest pain Gastrointestinal: Reports abdominal pain, Denies melena, Denies hematochezia, Reports diarrhea, Reports loose stools, Reports nausea and Reports vomiting Musculoskeletal: Denies back pain Skin/Breast: Denies rash Denies dizziness and Denies headache(s) [facility] Past Medical History Medical History Asthma Social History Social History Alcohol intake: never Patient Tobacco Use Status: Current everyday Tobacco user Substance Use Type: Marijuana Advance Directives: No Advance Directives Information Provided: No Do you have a plan to hurt others: No Plan Physical Exam ED Vital Signs: Vital Signs - 24 hr 05/15/25 14:59 05/15/25 17:51 Temperature 98.2 F 98.1 F Pulse Rate 63 68 Respiratory Rate 18 15 Blood Pressure 116/70 99/58 L Pulse Oximetry 99 98 Oxygen Delivery Method Room Air Room Air BMI result Body Mass Index 27.1 Const General: healthy appearing, comfortable, no acute distress, alert and awake Nutritional Appearance: well nourished Orientation/consciousness: patient oriented x3 [facility]: Yes normocephalic and Yes atraumatic Throat: Yes posterior oropharynx normal Eyes Eyelids: Yes eyelids normal Conjunctivae: conjunctivae normal Sclerae: sclerae normal Corneas: corneas normal Pupils: Equal, round and reactive pupils present EOM: EOMs intact bilaterally Neck Neck: Yes full ROM Resp Effort & Inspection: normal respiratory effort, able to speak in complete sentences, no audible wheezes and not labored Auscultation: clear to auscultation bilaterally Cardio Rate: regular rate Rhythm: regular rhythm GI Other: Tenderness with guarding in the right lower abdomen but no rebound tenderness Inspection: No distended Palpation (GI): Soft to palpation, not firm, Tenderness to palpation present (GI) in the RLQ; not in the RUQ and not periumbilically, Guarding due to palpation present (GI) in the RLQ and not rigid Auscultation: normoactive bowel sounds Skin General skin exam: no rashes or lesions noted and elasticity normal Neuro General: patient oriented x3 Cranial nerves: Yes CN's II-XII intact bilaterally, Yes Equal, round and reactive pupils present and Yes Bilaterally intact EOM present Cognition (Neuro): normal cognition Extrem Other: Moving all extremities well without any obvious deformities Course Course Course Narrative: 05/15/25 1501 AYAH Nix This is a Rapid Medical Examination (RME) performed by Asha Wesley PA-C in triage. Full HPI, ROS, assessment and treatment plan per primary provider in the Main ED. Hx: 35 yo M here for eval of N/V/D and RLQ abd pain x2 days. hx appendectomy. no known sick contacts. no fever/chills. Plan: labs, viral swabs, UA Medical Decision Making Medical Decision Making MDM Narrative: 35-year-old male presents for evaluation of right lower abdominal pain. He reports that he is status post appendectomy, but he is quite tender. Differential includes diverticulitis, obstructive uropathy, bowel obstruction, epiploic appendagitis, constipation. Plan for CT scan of the abdomen pelvis to better evaluate. He has no leukocytosis, renal function within normal limits. Electrolytes within normal limits. LFTs within normal limits. Further evaluation and management will be determined based on CT results Differential Diagnosis Differential Diagnoses: The differential diagnosis associated with the presentation includes (As above) Lab Data MDM Lab Attestation statement: I reviewed the patient's lab results. As above 05/15/25 15:35 05/15/25 15:35 Labs: Lab Results 05/15/25 Range/Units 15:35 WBC 5.1 (4.8-10.8) X10*3/uL RBC 5.03 (4.60-5.80) X10*6/uL Hgb 15.8 (14.0-18.0) g/dl Hct 43.1 (42.0-52.0) % MCV 85.7 (80.0-98.0) fL MCH 31.4 (27.0-33.0) pg MCHC 36.7 H (31.0-36.0) g/dl RDW 13.0 (11.0-16.0) % Plt Count 191 (160-400) X10*3/uL MPV 10.0 (9.4-12.4) fL Immature Gran % (Auto) 0.0 (0.0-0.4) % Neut % (Auto) 57.4 (45-73) % Lymph % (Auto) 32.7 (20-40) % Cottle % (Auto) 7.3 (2-11) % Eos % (Auto) 2.0 (0-4) % Baso % (Auto) 0.6 (0-2) % Lymph # (Auto) 1.7 (1.2-4.9) X10*3/uL Cottle # (Auto) 0.4 (0.1-1.2) X10*3/uL Eos # (Auto) 0.1 (0.0-0.4) X10*3/uL Baso # (Auto) 0.0 (0.0-0.2) X10*3/uL Abs Immat Gran (auto) 0.00 (0.00-0.03) X10*3/uL Absolute Neuts (auto) 2.9 (2.0-8.3) x10*3/uL Absolute Nucleated RBC 0.000 (0.0-0.012) X10*3/uL Nucleated RBC % (auto) 0.0 (0.0-0.2) /100WBC Sodium 143 (135-145) mmol/L Potassium 4.0 (3.3-5.1) mmol/L Chloride 107 (96-108) mmol/L Carbon Dioxide 27 (22-29) mmol/L Anion Gap 13 (12-20) BUN 11 (9-16) mg/dL Creatinine 0.85 (0.5-1.4) mg/dL Estim Creat Clear Calc 135.6 Estimated GFR > 60 Random Glucose 91 (60-115) mg/dL Calcium 9.5 (8.4-10.2) mg/dL Magnesium 2.3 (1.6-2.6) mg/dL Total Bilirubin 0.6 (0.0-1.0) mg/dL AST 27 (5-37) U/L ALT 34 (0-40) U/L Alkaline Phosphatase 52 (39-117) U/L Total Protein 7.0 (6.5-8.0) g/dL Albumin 4.7 (3.5-5.0) g/dL Lipase 9 (8-78) U/L Influenza Type A (PCR) NEGATIVE (Negative) Influenza Type B (PCR) NEGATIVE (Negative) RSV RNA Qual (PCR) NEGATIVE (Negative) SARS-CoV-2 RNA (RT-PCR) NEGATIVE (Negative) Medications Administered Discontinued Medications Generic Name Dose Route Start Last Admin Trade Name Freq PRN Reason Stop Dose Admin Sodium Chloride 1,000 mls @ 999 mls/hr 05/15/25 17:00 05/15/25 17:11 Ns IV 05/15/25 18:00 999 mls/hr .Q1H1M GEO Administration Iohexol 100 ml 05/15/25 17:05 05/15/25 17:06 Iohexol 350 Mg/Ml 100 Ml Infus..Btl IV 05/15/25 17:06 85 ml ONCE ONE Administration Morphine Sulfate 4 mg 05/15/25 16:51 05/15/25 17:11 Morphine Sulfate 4 Mg/Ml Cartridge IVPUSH 05/15/25 16:52 4 mg ONCE ONE Administration Protocol Ondansetron HCl 4 mg 05/15/25 16:51 05/15/25 17:10 Ondansetron Hcl 4 Mg/2 Ml Vial IVPUSH 05/15/25 16:52 4 mg ONCE ONE Administration Discharge Plan Discharge Clinical Impression: Enteritis Patient Disposition: Home, Self-Care Instructions: Enteritis (ED) Additional Instructions: You may use ibuprofen or Zofran as needed for nausea and vomiting. Use Motrin and Tylenol as needed for pain Drink lots of fluids, small sips at a time. Your CT scan showed enteritis which is usually caused by a virus This should improve on its own within a day or 2 Follow-up with your primary doctor, return for new or worsening symptom Prescriptions: New ondansetron 4 mg tablet,disintegrating 4 mg PO Q8H PRN (Reason: nausea and vomiting) Qty: 20 0RF No Action ibuprofen 800 mg tablet 800 mg PO Q8H PRN (Reason: pain) Qty: 14 0RF acetaminophen-codeine 300-30 mg tablet 1 tab PO Q8H PRN (Reason: pain) Qty: 10 0RF levofloxacin 750 mg tablet 750 mg PO DAILY 7 Days Qty: 7 0RF prednisone 20 mg tablet 40 mg PO DAILY Qty: 10 0RF codeine-guaifenesin 10-100 mg/5 mL liquid 10 ml PO Q4-6H PRN (Reason: cough) Qty: 237 0RF albuterol sulfate [ProAir HFA] 90 mcg/actuation HFA aerosol inhaler 2 puff inhalation Q4-6H PRN (Reason: Wheezing) Qty: 8.5 0RF ibuprofen 400 mg tablet 400 mg PO Q6H PRN (Reason: pain) Qty: 20 0RF doxycycline monohydrate 100 mg capsule 100 mg PO BID Qty: 14 0RF naproxen 500 mg tablet 500 mg PO BID 7 Days Qty: 14 0RF clindamycin HCl 300 mg capsule 300 mg PO Q6H 5 Days Qty: 20 0RF amoxicillin-pot clavulanate 875-125 mg tablet 1 tab PO Q12H 7 Days Qty: 14 0RF oxycodone 5 mg tablet 5 mg PO Q4H PRN (Reason: pain) Qty: 14 0RF Rx Instructions: Patient may request partial fill; Partial Fill upon patient request. ondansetron 4 mg tablet,disintegrating 4 mg PO Q6-8H PRN (Reason: nausea and vomiting) Qty: 14 0RF ibuprofen 600 mg tablet 600 mg PO Q6H PRN (Reason: pain) Qty: 20 0RF cyclobenzaprine 5 mg tablet 5 mg PO TID PRN (Reason: muscle spasm) Qty: 10 0RF oxycodone 5 mg tablet 5 mg PO Q6H PRN (Reason: pain) Qty: 14 0RF Rx Instructions: Partial Fill upon patient request. cyclobenzaprine 10 mg tablet 10 mg PO TID PRN (Reason: muscle spasm) Qty: 20 0RF prednisone 20 mg tablet 40 mg PO DAILY 5 Days Qty: 10 0RF lidocaine 5 % adhesive patch,medicated 1 patch topical DAILY Qty: 30 0RF Rx Instructions: leave on most painful area for up to 12 hrs morphine 15 mg tablet 15 mg PO Q6H PRN (Reason: pain) Qty: 12 0RF Rx Instructions: partial fill okay; Partial Fill upon patient request. ondansetron 4 mg tablet,disintegrating 4 mg PO Q8H PRN (Reason: nausea and vomiting) Qty: 20 0RF naproxen [Naprosyn] 500 mg tablet 500 mg PO BID PRN (Reason: PAIN) Qty: 20 0RF prednisone 20 mg tablet 60 mg PO DAILY Qty: 12 0RF acetaminophen [Tylenol Extra Strength] 500 mg tablet 500 mg PO Q6H PRN (Reason: fever or pain) Qty: 14 0RF lidocaine [Lidoderm] 5 % adhesive patch,medicated 1 patch topical DAILY MDD remove after 12 hours PRN (Reason: pain) Qty: 30 0RF Rx Instructions: leave on most painful area for up to 12 hrs naproxen 500 mg tablet 500 mg PO BID PRN (Reason: pain) 10 Days Qty: 20 0RF cyclobenzaprine 5 mg tablet 5 mg PO Q8H PRN (Reason: pain (scale score 7-10)) 5 Days Qty: 14 0RF ibuprofen 600 mg tablet 600 mg PO TID PRN (Reason: pain) Qty: 14 0RF cyclobenzaprine 10 mg tablet 10 mg PO TID PRN (Reason: muscle spasm) Qty: 14 0RF lidocaine 5 % adhesive patch,medicated 1 patch topical DAILY Qty: 15 0RF Rx Instructions: leave on most painful area for up to 12 hrs Stand Alone Forms: Work/School Release Print Language: Omani
[2025-05-15 15:56] LABS: MANUAL DIFF FLAG NO
[2025-05-15 15:57] LABS: Hematocrit 43.1 % (42.0-52.0); Hemoglobin 15.8 g/dl (14.0-18.0); Imm Gran Abs Auto 0.00 X10*3/uL (0.00-0.03); Imm Gran Pct Auto 0.0 % (0.0-0.4); Lymphocytes Absolute Auto 1.7 X10*3/uL (1.2-4.9); Mean Corpuscular HGB Conc 36.7 g/dl (31.0-36.0); Mean Corpuscular Hemoglobin 31.4 pg (27.0-33.0); Mean Corpuscular Volume 85.7 fL (80.0-98.0); NRBC Abs Auto 0.000 X10*3/uL (0.0-0.012); NRBC Pct Auto 0.0 /100WBC (0.0-0.2); Platelet Count 191 X10*3/uL (160-400); Red Blood Count 5.03 X10*6/uL (4.60-5.80); White Blood Count 5.1 X10*3/uL (4.8-10.8)
[2025-05-15 16:12] LABS: Alanine Aminotransferase 34 U/L (0-40); Albumin Level 4.7 g/dL (3.5-5.0); Alkaline Phosphatase 52 U/L (39-117); Anion Gap 13 (12-20); Aspartate Amino Transferase 27 U/L (5-37); Blood Urea Nitrogen 11 mg/dL (9-16); Calcium 9.5 mg/dL (8.4-10.2); Carbon Dioxide 27 mmol/L (22-29); Chloride 107 mmol/L (96-108); Creatinine Clr Calc Pharmacy 135.6; Estimated Glomerular Filt Rate > 60; Lipase 9 U/L (8-78); Magnesium 2.3 mg/dL (1.6-2.6); Potassium 4.0 mmol/L (3.3-5.1); Sodium 143 mmol/L (135-145); Total Protein 7.0 g/dL (6.5-8.0)
[2025-05-15 16:48] LABS: Resp Syncy Virus RNA Qual PCR NEGATIVE (Negative); SARS COV2 PCR INHOUSE NEGATIVE (Negative)
[2025-05-15] MEDS: iohexoL 350 MG/ML 100 ML INFUS..BTL IV (17:06)
[2025-05-15 17:51] VITALS: BP 99/58; PULSE 68; RESP 15; TEMP 36.7; O2SAT 98
[2025-05-15 19:14] VITALS: BP 97/56; PULSE 64; RESP 16; TEMP 37.1; O2SAT 98
[2025-05-15 19:20] VITALS: BP 97/56; PULSE 64; RESP 16; TEMP 37.1; O2SAT 98
== END 2025-05-15 19:29 | disposition home or self-care (01) ==
PROVIDERS: Physician Assistant Medical; Emergency Provider Emergency Medicine
DX: K52.9 Noninfective gastroenteritis and colitis, unspecified (principal); R11.2 Nausea with vomiting, unspecified; R10.31 Right lower quadrant pain; Z03.818 Encounter for observation for suspected exposure to other biological agents ruled out
CPT/HCPCS: 74177; 80053; 83690; 83735; 85025; 87637; 96361; 96374; 96375; 99284; J1885; J2270; J2405; Q9967

== ENCOUNTER → 2025-05-15 16:51 | Outpatient (BNV) | payer SELFPAY | PROVIDERS: Emergency Provider Emergency Medicine; Visit Provider Radiology Vascular & Interventional Radiology | DX: R10.31 Right lower quadrant pain (principal); Z90.49 Acquired absence of other specified parts of digestive tract | CPT/HCPCS: 74177 ==

== ENCOUNTER 2025-05-16 23:43 | Emergency (ER) | payer SELFPAY ==
[2025-05-16 23:46] VITALS: BP 122/60; PULSE 82; RESP 18; TEMP 36.6; O2SAT 99; BMI 27.1
[2025-05-17 00:21] LABS: Hematocrit 39.9 % (42.0-52.0); Hemoglobin 14.8 g/dl (14.0-18.0); Mean Corpuscular HGB Conc 37.1 g/dl (31.0-36.0); Mean Corpuscular Hemoglobin 31.8 pg (27.0-33.0); Mean Corpuscular Volume 85.6 fL (80.0-98.0); NRBC Abs Auto 0.000 X10*3/uL (0.0-0.012); NRBC Pct Auto 0.0 /100WBC (0.0-0.2); Platelet Count 221 X10*3/uL (160-400); Red Blood Count 4.66 X10*6/uL (4.60-5.80); White Blood Count 6.2 X10*3/uL (4.8-10.8)
[2025-05-17 00:34] LABS: Alanine Aminotransferase 40 U/L (0-40); Albumin Level 4.6 g/dL (3.5-5.0); Alkaline Phosphatase 59 U/L (39-117); Anion Gap 12 (12-20); Aspartate Amino Transferase 32 U/L (5-37); Blood Urea Nitrogen 14 mg/dL (9-16); Calcium 9.1 mg/dL (8.4-10.2); Carbon Dioxide 24 mmol/L (22-29); Chloride 109 mmol/L (96-108); Creatinine Clr Calc Pharmacy 105.8; Estimated Glomerular Filt Rate > 60; Lipase 17 U/L (8-78); Magnesium 2.0 mg/dL (1.6-2.6); Potassium 3.4 mmol/L (3.3-5.1); Sodium 142 mmol/L (135-145); Total Protein 7.1 g/dL (6.5-8.0)
[2025-05-17 02:06] LABS: Appearance Urine Clear; Glucose Urine UA Negative (Negative); PH 6.0 (5.0-9.0); Specific Gravity - Urine 1.015 (1.005-1.025); UMIC TRIGGER UA YES
[2025-05-17 03:54] VITALS: BP 114/63; PULSE 59; RESP 18; TEMP 36.7; O2SAT 97
--- NOTE | 2025-05-17 04:46 | ED_ITS ---
HPI - Abdominal Pain General Chief Complaint: Abdominal Pain Stated Complaint: Abdominal Pain & Diff breathing Time Seen by Provider: 05/17/25 04:27 Source: patient Mode of arrival: ambulatory Limitations: no limitations History of Present Illness ED Provider: Dr. Mercedes Medina HPI narrative: N/C room complaining of right lower quadrant pain. Patient was seen here yesterday for the same reason. Patient states that his abdomen is still hurting. Denies nausea vomiting or diarrhea. Patient states that today he was taking a shower in he saw swelling in his abdomen and decided to come in. Of note, patient states that he has history of appendectomy. Patient had 2 surgeries. One done in [place], states that half of his appendix was left in, then about 2 years ago he had a 2nd surgery at [facility] to remove the 2nd have of the appendix. Related Data Previous Rx's ?Medication ?Instructions ?Recorded acetaminophen 300 mg-codeine 30 mg 1 tab PO Q8H PRN pa in #10 tabs 06/20/21 tablet ibuprofen 800 mg tablet 800 mg PO Q8H PRN pain #14 t abs 06/20/21 albuterol sulfate 90 mcg/actuation 2 puff inhalation Q 4-6H PRN 08/19/21 aerosol inhaler (ProAir HFA) Wheezing #8.5 grams codeine 10 mg-guaifenesin 100 mg/5 10 ml PO Q4-6H PRN cough #237 mL 08/19/21 mL oral liquid levofloxacin 750 mg tablet 750 mg PO DAILY 7 days #7 t abs 08/19/21 prednisone 20 mg tablet 40 mg (2 x 20 mg) PO DAILY # 10 tabs 08/19/21 clindamycin HCl 300 mg capsule 300 mg PO Q6H 5 days #2 0 caps 12/10/21 amoxicillin 875 mg-potassium 1 tab PO Q12H 7 days #14 tabs 07/24/22 clavulanate 125 mg tablet ondansetron 4 mg disintegrating 4 mg PO Q6-8H PRN naus ea and 07/24/22 tablet vomiting #14 tabs oxycodone 5 mg tablet 5 mg PO Q4H PRN pain #14 tab s 07/24/22 doxycycline monohydrate 100 mg 100 mg PO BID Chlamydia infection 09/15/22 capsule #14 caps ibuprofen 400 mg tablet 400 mg PO Q6H PRN pain #20 t abs 09/15/22 naproxen 500 mg tablet 500 mg PO BID 7 days #14 tab s 10/12/22 cyclobenzaprine 5 mg tablet 5 mg PO TID PRN muscle spa sm #10 02/12/23 tabs ibuprofen 600 mg tablet 600 mg PO Q6H PRN pain #20 t abs 02/12/23 oxycodone 5 mg tablet 5 mg PO Q6H PRN pain #14 tab s 02/12/23 acetaminophen 500 mg tablet 500 mg PO Q6H PRN fever or pain 04/05/23 (Tylenol Extra Strength) #14 tabs cyclobenzaprine 5 mg tablet 5 mg PO Q8H PRN pain (scal e score 04/05/23 7-10) 5 days #14 tabs lidocaine 5 % topical patch 1 patch topical DAILY PRN pain #30 04/05/23 (Lidoderm) ea naproxen 500 mg tablet 500 mg PO BID PRN pain 10 da ys #20 04/05/23 tabs cyclobenzaprine 10 mg tablet 10 mg PO TID PRN muscle s pasm #20 01/07/25 tabs lidocaine 5 % topical patch 1 patch topical DAILY #30 ea 01/07/25 morphine 15 mg immediate release 15 mg PO Q6H PRN pain #12 tabs 01/07/25 tablet ondansetron 4 mg disintegrating 4 mg PO Q8H PRN nausea and 01/07/25 tablet vomiting #20 tabs prednisone 20 mg tablet 40 mg (2 x 20 mg) PO DAILY 5 days 01/07/25 #10 tabs naproxen 500 mg tablet (Naprosyn) 500 mg PO BID PRN PA IN #20 tabs 03/13/25 prednisone 20 mg tablet 60 mg (3 x 20 mg) PO DAILY # 12 tabs 03/13/25 cyclobenzaprine 10 mg tablet 10 mg PO TID PRN muscle s pasm #14 04/20/25 tabs ibuprofen 600 mg tablet 600 mg PO TID PRN pain #14 t abs 04/20/25 lidocaine 5 % topical patch 1 patch topical DAILY #15 ea 04/20/25 ondansetron 4 mg disintegrating 4 mg PO Q8H PRN nausea and 05/15/25 tablet vomiting #20 tabs ketorolac 10 mg tablet 10 mg PO .B.i.d. PRN pain #7 tabs 07/17/25 Allergies Allergy/AdvReac Type Severity Reaction Status Date / Time No Known Allergies Allergy Verified 05/16/25 23:49 Review of Systems Review of Systems Constitutional : No Weight loss, No Fever, No Chills, No Night Sweats, No Fatigue, No Malaise ENT/Mouth : No Hearing loss, No Ear Pain, No Nasal Congestion, No Sinus Pain, No Hoarseness, No sore throat, No Rhinorrhea, No Swallowing Difficulty Eyes: No Eye Pain, No Swelling, No Redness, No Foreign Body, No Discharge, No Vision Changes Cardiovascular : No Chest Pain, No SOB, No Dyspnea on Exertion, No Orthopnea, No Edema, No Palpitations Respiratory : No Cough, No Sputum, No Wheezing, No Smoke Exposure, No Dyspnea Gastrointestinal : No Nausea, No Vomiting, No Diarrhea, No Constipation, complaining of a painful swelling mass in the right lower quadrant Genitourinary : no irregular bleeding, No Dysuria, No Urinary Frequency, No Hematuria, No Urinary Incontinence, No Urgency, No Flank Pain, No Urinary Flow Changes, No Hesitancy Musculoskeletal : No joint pain, No Myalgias, No Joint Swelling Skin : No Skin Lesions, No rash Neuro : No Weakness, No Numbness, No Paresthesias, No Loss of Consciousness, No Dizziness, No Headache Psych : No Anxiety/Panic, No Depression, No SI/HI/AH/VH, No Social Issues, Heme/Lymph: No Bruising, No Bleeding,No Lymphadenopathy Endocrine : No Polyuria, No Polydipsia, No Temperature Intolerance [facility] Past Medical History Medical History Asthma Social History Social History Alcohol intake: never Patient Tobacco Use Status: Current everyday Tobacco user Substance Use Type: Marijuana Advance Directives: No Advance Directives Information Provided: Yes Physical Exam ED Vital Signs: Vital Signs - 24 hr 05/16/25 23:46 05/17/25 03:54 Temperature 97.8 F 98.1 F Pulse Rate 82 59 Respiratory Rate 18 18 Blood Pressure 122/60 114/63 Pulse Oximetry 99 97 Oxygen Delivery Method Room Air Room Air BMI result Body Mass Index 27.1 Const Other: Appearance: Alert. Oriented X3. No acute distress. Eyes: Pupils equal, round and reactive to light. ENT: Pharynx normal. Neck: Normal inspection. Neck supple. No lymph nodes noted. No crepitus CVS: Normal heart rate and rhythm. Pulses normal. Normal S1 and S2 Respiratory: No respiratory distress. Breath sounds normal. No Wheezing. No rales Abdomen: Soft, complaining pain to palpation, no palpable hernias, no palpable masses, no erythema Skin: Skin warm and dry. Normal skin color. Normal skin turgor. Extremities: No lower extremity edema. No Lacerations. No Rash Neuro: Oriented X 3. No motor deficit. No sensory deficit. Moving all extremities. No slurred speech. CN 2 through 12 grossly intact Psych: calm, cooperative, normal affect Course Course Course Narrative: I reviewed patient's records from yesterday. Patient's labs did not show any acute abnormality. Patient's CT scan of the abdomen did not show any acute abnormality. Today, labs were redrawn Medical Decision Making Medical Decision Making [facility] Narrative: My interpretation of labs: Patient has no abnormality in patient's hematology or chemistry. On physical exam, he does not have any palpable masses, no erythema. Patient has history of appendectomy. Yesterday the CT scan did not show any kidney stones. Patient was diagnosed with a gastroenteritis. In very anxious, patient given p.o. Ativan and IM ketorolac. At this time, based on patient's labs, physical exam and past surgical history, I do not believe that doing another CT scan of the abdomen/pelvis would be of any benefit or diagnostic I do not believe that patient has an incarcerated hernia. Patient has no palpable masses at all I reviewed also patient's past medical records. Patient has had similar complaints and was seen by surgery in 2021 after that 2nd surgery at [facility]. Surgery did not considered that this was related to the surgery. In previous CT scan, assist was seen adjacent to the bladder however inconsistent with patient's physical exam, likely not causing symptoms. Differential Diagnosis Differential Diagnoses: The differential diagnosis associated with the presentation includes (Hernia, anxiety, enteritis) Admission/Observation Consideration of admission/observation: Escalation of care including admission/observation considered (Given patient's 2nd visit to the ED with the same complaint, observation was considered.) Lab Data [facility] Lab Attestation statement: I reviewed the patient's lab results. 05/17/25 00:09 05/17/25 00:09 Labs: Lab Results 05/17/25 05/17/25 Range/Units 00:09 01:59 WBC 6.2 (4.8-10.8) X10*3/uL RBC 4.66 (4.60-5.80) X10*6/uL Hgb 14.8 (14.0-18.0) g/dl Hct 39.9 L (42.0-52.0) % MCV 85.6 (80.0-98.0) fL MCH 31.8 (27.0-33.0) pg MCHC 37.1 H (31.0-36.0) g/dl RDW 12.6 (11.0-16.0) % Plt Count 221 (160-400) X10*3/uL MPV 9.7 (9.4-12.4) fL Absolute Nucleated RBC 0.000 (0.0-0.012) X10*3/uL Nucleated RBC % (auto) 0.0 (0.0-0.2) /100WBC Sodium 142 (135-145) mmol/L Potassium 3.4 (3.3-5.1) mmol/L Chloride 109 H (96-108) mmol/L Carbon Dioxide 24 (22-29) mmol/L Anion Gap 12 (12-20) BUN 14 (9-16) mg/dL Creatinine 1.09 (0.5-1.4) mg/dL Estim Creat Clear Calc 105.8 Estimated GFR > 60 Random Glucose 122 H (60-115) mg/dL Calcium 9.1 (8.4-10.2) mg/dL Magnesium 2.0 (1.6-2.6) mg/dL Total Bilirubin 0.4 (0.0-1.0) mg/dL Direct Bilirubin 0.1 (0.0-0.5) mg/dL AST 32 (5-37) U/L ALT 40 (0-40) U/L Alkaline Phosphatase 59 (39-117) U/L Total Protein 7.1 (6.5-8.0) g/dL Albumin 4.6 (3.5-5.0) g/dL Lipase 17 (8-78) U/L Urine Color Yellow Urine Appearance Clear Urine pH 6.0 (5.0-9.0) Ur Specific Switzer 1.015 (1.005-1.025) Urine Protein Negative (Neg-Trace) mg/dL Urine Glucose (UA) Negative (Negative) mg/dL Urine Ketones Negative (Negative) mg/dL Urine Blood Negative (Negative) Urine Nitrite Negative (Negative) Ur Leukocyte Esterase Trace H (Negative) Urine RBC 0-2 (0-2) /HPF Urine WBC 0-5 (0-5) /HPF Ur Squamous Epith Cells 0-2 (0-2) /HPF Urine Bacteria None Seen (None Seen) Hyaline Casts 0-2 (0-2) /LPF Independent Interpretation I performed an independent interpretation of an: CT Scan (CT scan from yesterday) Critical Care Time Critical Care Time Critical Care Time: Yes Total Critical Care Time: 35 Attestation: I have personally provided critical care time. Time includes review of lab data, radiology results, discussion with consultants, and monitoring for potential decompensation. Intervention performed as documented. Discharge Plan Discharge Clinical Impression: Abdominal pain, Anxiety about health Patient Disposition: Home, Self-Care Instructions: Abdominal Pain (ED) Additional Instructions: Please follow-up with your primary care physician tomorrow. If you have any worsening or new symptoms, please return to the emergency room or call 911 Prescriptions: New ketorolac 10 mg tablet 10 mg PO .B.i.d. PRN (Reason: pain) Qty: 7 0RF Rx Instructions: No take this medication with ibuprofen, naproxen or any NSAIDs No Action ibuprofen 800 mg tablet 800 mg PO Q8H PRN (Reason: pain) Qty: 14 0RF acetaminophen-codeine 300-30 mg tablet 1 tab PO Q8H PRN (Reason: pain) Qty: 10 0RF levofloxacin 750 mg tablet 750 mg PO DAILY 7 Days Qty: 7 0RF prednisone 20 mg tablet 40 mg PO DAILY Qty: 10 0RF codeine-guaifenesin 10-100 mg/5 mL liquid 10 ml PO Q4-6H PRN (Reason: cough) Qty: 237 0RF albuterol sulfate [ProAir HFA] 90 mcg/actuation HFA aerosol inhaler 2 puff inhalation Q4-6H PRN (Reason: Wheezing) Qty: 8.5 0RF ibuprofen 400 mg tablet 400 mg PO Q6H PRN (Reason: pain) Qty: 20 0RF doxycycline monohydrate 100 mg capsule 100 mg PO BID Qty: 14 0RF naproxen 500 mg tablet 500 mg PO BID 7 Days Qty: 14 0RF clindamycin HCl 300 mg capsule 300 mg PO Q6H 5 Days Qty: 20 0RF amoxicillin-pot clavulanate 875-125 mg tablet 1 tab PO Q12H 7 Days Qty: 14 0RF oxycodone 5 mg tablet 5 mg PO Q4H PRN (Reason: pain) Qty: 14 0RF Rx Instructions: Patient may request partial fill; Partial Fill upon patient request. ondansetron 4 mg tablet,disintegrating 4 mg PO Q6-8H PRN (Reason: nausea and vomiting) Qty: 14 0RF ibuprofen 600 mg tablet 600 mg PO Q6H PRN (Reason: pain) Qty: 20 0RF cyclobenzaprine 5 mg tablet 5 mg PO TID PRN (Reason: muscle spasm) Qty: 10 0RF oxycodone 5 mg tablet 5 mg PO Q6H PRN (Reason: pain) Qty: 14 0RF Rx Instructions: Partial Fill upon patient request. cyclobenzaprine 10 mg tablet 10 mg PO TID PRN (Reason: muscle spasm) Qty: 20 0RF prednisone 20 mg tablet 40 mg PO DAILY 5 Days Qty: 10 0RF lidocaine 5 % adhesive patch,medicated 1 patch topical DAILY Qty: 30 0RF Rx Instructions: leave on most painful area for up to 12 hrs morphine 15 mg tablet 15 mg PO Q6H PRN (Reason: pain) Qty: 12 0RF Rx Instructions: partial fill okay; Partial Fill upon patient request. ondansetron 4 mg tablet,disintegrating 4 mg PO Q8H PRN (Reason: nausea and vomiting) Qty: 20 0RF naproxen [Naprosyn] 500 mg tablet 500 mg PO BID PRN (Reason: PAIN) Qty: 20 0RF prednisone 20 mg tablet 60 mg PO DAILY Qty: 12 0RF ondansetron 4 mg tablet,disintegrating 4 mg PO Q8H PRN (Reason: nausea and vomiting) Qty: 20 0RF acetaminophen [Tylenol Extra Strength] 500 mg tablet 500 mg PO Q6H PRN (Reason: fever or pain) Qty: 14 0RF lidocaine [Lidoderm] 5 % adhesive patch,medicated 1 patch topical DAILY MDD remove after 12 hours PRN (Reason: pain) Qty: 30 0RF Rx Instructions: leave on most painful area for up to 12 hrs naproxen 500 mg tablet 500 mg PO BID PRN (Reason: pain) 10 Days Qty: 20 0RF cyclobenzaprine 5 mg tablet 5 mg PO Q8H PRN (Reason: pain (scale score 7-10)) 5 Days Qty: 14 0RF ibuprofen 600 mg tablet 600 mg PO TID PRN (Reason: pain) Qty: 14 0RF cyclobenzaprine 10 mg tablet 10 mg PO TID PRN (Reason: muscle spasm) Qty: 14 0RF lidocaine 5 % adhesive patch,medicated 1 patch topical DAILY Qty: 15 0RF Rx Instructions: leave on most painful area for up to 12 hrs Print Language: Niuean
[2025-05-17 05:14] VITALS: BP 122/58; PULSE 58; RESP 18; TEMP 36.5; O2SAT 97
== END 2025-05-17 05:24 | disposition home or self-care (01) ==
PROVIDERS: Emergency Provider Emergency Medicine
DX: R10.2 Pelvic and perineal pain (principal); F41.9 Anxiety disorder, unspecified; F43.0 Acute stress reaction; R06.02 Shortness of breath; Z79.899 Other long term (current) drug therapy
CPT/HCPCS: 36415; 80053; 81001; 82248; 83690; 83735; 85027; 96372; 99284; 99291; J1885

== ENCOUNTER 2025-06-05 08:00 | Emergency (ER) | payer SELFPAY ==
[2025-06-05 08:01] VITALS: BP 121/75; PULSE 60; RESP 16; TEMP 36.4; O2SAT 98; BMI 34.5
--- NOTE | 2025-06-05 08:05 | ED.ABDPAIN ---
HPI - Abdominal Pain General Chief Complaint: Abdominal Pain Stated Complaint: Abd pain Time Seen by Provider: 06/05/25 10:48 Source: patient Mode of arrival: ambulatory Limitations: no limitations History of Present Illness ED Provider: Nadya Teresa PA-C HPI narrative: 35-year-old male with medical history of asthma presents to the ED today due to 5 hours of nausea. Patient states he woke up for work around 6:00 a.m. this morning and quickly developed nausea without vomiting, with right-sided abdominal pain. Patient reports 1 episode of soft stool. 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 Patient has been seen in the department for same symptoms, reports this abdominal pain and nausea has been consistently the same, has not changed in quality or intensity from prior visits. Patient was initially seen 05/15/[address] scan of abdomen which revealed gastroenteritis. Patient was discharged with supportive care. Patient then presented back to the department on 05/17/2025 for same symptoms and discharged home with supportive care. Patient does have history of daily marijuana use, states he usually smokes at night to help him go to sleep. Denies saddle anesthesia, bowel/bladder incontinence, chest pain, shortness of breath, vomiting, hematemesis, black/tarry stool, urinary symptoms, headaches, visual changes Related Data Previous Rx's ?Medication ?Instructions ?Recorded acetaminophen 300 mg-codeine 30 mg 1 tab PO Q8H PRN pain #10 tabs 06/20/21 tablet ibuprofen 800 mg tablet 800 mg PO Q8H PRN pain #14 tabs 06/20/21 albuterol sulfate 90 mcg/actuation 2 puff inhalation Q4-6H PRN 08/19/21 aerosol inhaler (ProAir HFA) Wheezing #8.5 grams codeine 10 mg-guaifenesin 100 mg/5 10 ml PO Q4-6H PRN cough #237 mL 08/19/21 mL oral liquid levofloxacin 750 mg tablet 750 mg PO DAILY 7 days #7 tabs 08/19/21 prednisone 20 mg tablet 40 mg (2 x 20 mg) PO DAILY #10 tabs 08/19/21 clindamycin HCl 300 mg capsule 300 mg PO Q6H 5 days #20 caps 12/10/21 amoxicillin 875 mg-potassium 1 tab PO Q12H 7 days #14 tabs 07/24/22 clavulanate 125 mg tablet ondansetron 4 mg disintegrating 4 mg PO Q6-8H PRN nausea and 07/24/22 tablet vomiting #14 tabs oxycodone 5 mg tablet 5 mg PO Q4H PRN pain #14 tabs 07/24/22 doxycycline monohydrate 100 mg 100 mg PO BID Chlamydia infection 09/15/22 capsule #14 caps ibuprofen 400 mg tablet 400 mg PO Q6H PRN pain #20 tabs 09/15/22 naproxen 500 mg tablet 500 mg PO BID 7 days #14 tabs 10/12/22 cyclobenzaprine 5 mg tablet 5 mg PO TID PRN muscle spasm #10 02/12/23 tabs ibuprofen 600 mg tablet 600 mg PO Q6H PRN pain #20 tabs 02/12/23 oxycodone 5 mg tablet 5 mg PO Q6H PRN pain #14 tabs 02/12/23 acetaminophen 500 mg tablet 500 mg PO Q6H PRN fever or pain 04/05/23 (Tylenol Extra Strength) #14 tabs cyclobenzaprine 5 mg tablet 5 mg PO Q8H PRN pain (scale score 04/05/23 7-10) 5 days #14 tabs lidocaine 5 % topical patch 1 patch topical DAILY PRN pain #30 04/05/23 (Lidoderm) ea naproxen 500 mg tablet 500 mg PO BID PRN pain 10 days #20 04/05/23 tabs cyclobenzaprine 10 mg tablet 10 mg PO TID PRN muscle spasm #20 01/07/25 tabs lidocaine 5 % topical patch 1 patch topical DAILY #30 ea 01/07/25 morphine 15 mg immediate release 15 mg PO Q6H PRN pain #12 tabs 01/07/25 tablet ondansetron 4 mg disintegrating 4 mg PO Q8H PRN nausea and 01/07/25 tablet vomiting #20 tabs prednisone 20 mg tablet 40 mg (2 x 20 mg) PO DAILY 5 days 01/07/25 #10 tabs naproxen 500 mg tablet (Naprosyn) 500 mg PO BID PRN PAIN #20 tabs 03/13/25 prednisone 20 mg tablet 60 mg (3 x 20 mg) PO DAILY #12 tabs 03/13/25 cyclobenzaprine 10 mg tablet 10 mg PO TID PRN muscle spasm #14 04/20/25 tabs ibuprofen 600 mg tablet 600 mg PO TID PRN pain #14 tabs 04/20/25 lidocaine 5 % topical patch 1 patch topical DAILY #15 ea 04/20/25 ondansetron 4 mg disintegrating 4 mg PO Q8H PRN nausea and 05/15/25 tablet vomiting #20 tabs ketorolac 10 mg tablet 10 mg PO .B.i.d. PRN pain #7 tabs 05/17/25 ondansetron HCl 4 mg tablet 4 mg PO Q8H PRN nausea and 06/05/25 vomiting #14 tabs Allergies Allergy/AdvReac Type Severity Reaction Status Date / Time No Known Allergies Allergy Verified 06/05/25 08:02 Review of Systems Review of Systems CONST: Negative for fever, body aches and chills. HENT: Negative for neck pain/stiffness, headache, congestion, sore throat, swelling. EYES: Negative for discharge/pain or vision changes. RESP: Negative for cough/hemoptysis and shortness of breath. CV: Negative chest pain, difficulty breathing, palpitations. ABD: Negative vomiting. POS R sided abd pain, nausea : Negative increase frequency, dysuria, blood in urine or stool. MUSC: Negative for muscle aches, edema. SKIN: Negative rash, lesions/sores. NEURO: Negative headache, dizziness, weakness. [facility] Past Medical History Attestation statement: The following information was validated with the patient. Source: old records reviewed and nursing notes reviewed Medical History Asthma Social History Social History Alcohol intake: current Alcohol intake frequency: holidays/special occasions only Patient Tobacco Use Status: Current everyday Tobacco user Smoked in Last 30 Days: No Use of substances other than those prescribed or required for medical reasons: No Substance Use Type: Marijuana Advance Directives: No Advance Directives Information Provided: Yes Physical Exam ED Vital Signs: Vital Signs - 24 hr 06/05/25 08:01 06/05/25 11:07 Temperature 97.6 F Pulse Rate 60 52 Respiratory Rate 16 16 Blood Pressure 121/75 118/74 Pulse Oximetry 98 99 Oxygen Delivery Method Room Air Room Air BMI result Body Mass Index 34.5 GENERAL APPEARANCE: ?AxOx4, generally well-appearing, no acute distress. HEENT: ?NC, AT. MMM. EOMI, clear conjunctiva, oropharynx clear. NECK: ?Supple without lymphadenopathy.? No stiffness or restricted ROM. HEART:? Normal rate and regular rhythm, normal S1/S2, no m/r/g LUNGS:? CTAB, moving air well. No crackles or wheezes are heard. ABDOMEN: ?Soft, nonrigid, nondistended, TTP of diffuse right-sided abdomen, no overlying skin changes, no peritoneal signs, no rebound tenderness, negative Aparicio's sign, no palpable masses, no abdominal swelling, with good bowel sounds heard. BACK: No CVAT, no obvious deformity. Left-sided lumbar paraspinal muscles TTP, no midline tenderness, full ROM intact, patient ambulating without ataxic gait. EXTREMITIES: ?Without cyanosis, clubbing or edema. NEUROLOGICAL: ?Grossly nonfocal. Alert and oriented, moving all 4 extremities. Observed to ambulate with normal gait. Skin: ?Warm and dry without any rash. Course Course Course Narrative: This is an RME: Additional HPI, ROS, PE not included below will be deferred to primary provider. RME assessment and note performed by: Misti Mccloud PA-C This is a 35-year-old male, with a past medical history of an appendectomy, who presents emergency department with concerns of right lower quadrant pain, nausea, and diarrhea which started this morning. Patient was seen here twice in May for similar symptoms. No fevers. Abdomen is soft with tenderness palpation in the right upper and right lower quadrant. Plan: Labs, UA, further ER evaluation needed Medical Decision Making Medical Decision Making MDM Narrative: 35-year-old male with medical history of asthma presents to the ED today due to 5 hours of nausea. Patient states he woke up for work around 6:00 a.m. this morning and quickly developed nausea without vomiting, with right-sided abdominal pain. Patient reports 1 episode of soft stool. 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 Patient has been seen in the department for same symptoms, reports this abdominal pain and nausea has been consistently the same, has not changed in quality or intensity from prior visits. Patient was initially seen 05/15/[address] scan of abdomen which revealed gastroenteritis. Patient was discharged with supportive care. Patient then presented back to the department on 05/17/2025 for same symptoms and discharged home with supportive care. Patient does have history of daily marijuana use, states he usually smokes at night to help him go to sleep. VSS, BP 118/74, pulse rate 52 beats per minute, respiratory rate of 16, patient afebrile with oral temp of 97.6?, O2 saturation 99% on room air. On physical exam this is a very well appearing young male, in no acute distress, nontoxic appearing, lungs clear to auscultation bilaterally, cardiac exam with normal rate and rhythm, without murmurs/rubs/gallops, oral mucous membranes moist, on visual observation abdomen without swelling, atraumatic, soft, nondistended, no rigidity, mild tenderness of diffuse right abdomen, negative Aparicio's sign, surgically without appendix, no overlying skin changes, no epigastric tenderness. Labs without leukocytosis, H and H stable, lipase WNL, no evidence of electrolyte abnormality. Viral serology negative, awaiting UA. Patient well-appearing, afebrile, without leukocytosis, no electrolyte abnormality, Aparicio's negative, abdomen soft/non-distended/nonrigid- less likely acute abdomen Left side lumbar paraspinal muscles TTP, TTP over left SI joint, no midline spinal tenderness, full ROM intact, SILT, left-sided straight leg test positive, patient without saddle anesthesias, bowel/bladder incontinence, no history of IVDU- less likely cauda equina/SEA At this time I am suspecting cannabis hyperemesis syndrome as patient states nausea and abdominal pain is relieved with hot showers. We will trial IV fluids, droperidol to observe for improvement. Patient being medicated with 15 mg IV ketorolac for lumbar pain. Patient states abdominal pain has improved dramatically after being medicated with IV fluids, 1.25 mg IV droperidol, 4 mg IV ondansetron, 15 mg IV Toradol. Suspect at this time abdominal pain and nausea is from cannabis hyperemesis syndrome. Patient without PCP follow up we will refer for PCP group. I discussed discontinuing use of cannabis for the next 4 weeks so patient can evaluate if abdominal pain and nausea improves after cessation. Counseled patient on strict return precautions. Differential Diagnosis Differential Diagnoses: The differential diagnosis associated with the presentation includes Cauda equina Acute abdomen Gastritis Cannabis hyperemesis syndrome Electrolyte abnormality Lumbar radiculopathy Admission/Observation Consideration of admission/observation: Escalation of care including admission/observation considered Lab Data MDM Lab Attestation statement: I reviewed the patient's lab results. 06/05/25 08:19 06/05/25 08:19 Labs: Lab Results 06/05/25 Range/Units 08:19 WBC 4.8 (4.8-10.8) X10*3/uL RBC 4.99 (4.60-5.80) X10*6/uL Hgb 15.6 (14.0-18.0) g/dl Hct 43.7 (42.0-52.0) % MCV 87.6 (80.0-98.0) fL MCH 31.3 (27.0-33.0) pg MCHC 35.7 (31.0-36.0) g/dl RDW 12.8 (11.0-16.0) % Plt Count 197 (160-400) X10*3/uL MPV 9.9 (9.4-12.4) fL Immature Gran % (Auto) 0.2 (0.0-0.4) % Neut % (Auto) 54.9 (45-73) % Lymph % (Auto) 34.2 (20-40) % [place] % (Auto) 8.2 (2-11) % Eos % (Auto) 1.9 (0-4) % Baso % (Auto) 0.6 (0-2) % Lymph # (Auto) 1.6 (1.2-4.9) X10*3/uL [place] # (Auto) 0.4 (0.1-1.2) X10*3/uL Eos # (Auto) 0.1 (0.0-0.4) X10*3/uL Baso # (Auto) 0.0 (0.0-0.2) X10*3/uL Abs Immat Gran (auto) 0.01 (0.00-0.03) X10*3/uL Absolute Neuts (auto) 2.6 (2.0-8.3) x10*3/uL Absolute Nucleated RBC 0.000 (0.0-0.012) X10*3/uL Nucleated RBC % (auto) 0.0 (0.0-0.2) /100WBC Sodium 141 (135-145) mmol/L Potassium 3.8 (3.3-5.1) mmol/L Chloride 107 (96-108) mmol/L Carbon Dioxide 29 (22-29) mmol/L Anion Gap 9 L (12-20) BUN 15 (9-16) mg/dL Creatinine 0.83 (0.5-1.4) mg/dL Estim Creat Clear Calc 142.4 Estimated GFR > 60 Random Glucose 101 (60-115) mg/dL Calcium 9.3 (8.4-10.2) mg/dL Magnesium 2.1 (1.6-2.6) mg/dL Total Bilirubin 0.8 (0.0-1.0) mg/dL Direct Bilirubin 0.3 (0.0-0.5) mg/dL AST 32 (5-37) U/L ALT 48 H (0-40) U/L Alkaline Phosphatase 56 (39-117) U/L Total Protein 7.2 (6.5-8.0) g/dL Albumin 4.8 (3.5-5.0) g/dL Lipase 9 (8-78) U/L Influenza Type A (PCR) NEGATIVE (Negative) Influenza Type B (PCR) NEGATIVE (Negative) RSV RNA Qual (PCR) NEGATIVE (Negative) SARS-CoV-2 RNA (RT-PCR) NEGATIVE (Negative) External Record Review External record reviewed: Inpatient record, Office record and Outpatient record Tests considered The following testing was considered but not selected: I considered CT abdomen, however patient with recent imaging done approximately 3 weeks ago on 05/17/2025. Patient states abdominal pain is same in quality and consistency, pain has not changed. Patient afebrile, without leukocytosis, nontoxic appearing. Patient with history of cannabis use, high suspicion for cannabis hyperemesis syndrome. I do not believe that advanced imaging needs to be done for evaluation of the abdomen at this time. Chronic Conditions Patient?s care impacted by: Other (Asthma, cannabis use) Medications Administered Generic Name Dose Route Start Last Admin Trade Name Freq PRN Reason Stop Dose Admin Lactated Ringer's 1,000 mls @ 999 mls/hr 06/05/25 11:45 06/05/25 11:35 Lr IV 06/05/25 12:45 999 mls/hr .Q1H1M GEO Administration Discontinued Medications Generic Name Dose Route Start Last Admin Trade Name Jina PRN Reason Stop Dose Admin Droperidol 1.25 mg 06/05/25 11:14 06/05/25 11:36 Droperidol 5 Mg/2 Ml Vial IVPUSH 06/05/25 11:15 1.25 mg ONCE ONE Administration Ketorolac Tromethamine 15 mg 06/05/25 11:16 06/05/25 11:36 Ketorolac Tromethamine 15 Mg/Ml Vial IVPUSH 06/05/25 11:17 15 mg ONCE ONE Administration Ondansetron HCl 4 mg 06/05/25 11:14 06/05/25 11:36 Ondansetron Hcl 4 Mg/2 Ml Vial IVPUSH 06/05/25 11:15 4 mg ONCE ONE Administration Discharge Plan Discharge Clinical Impression: Abdominal pain, Cannabis hyperemesis syndrome concurrent with and due to cannabis dependence Patient Disposition: Home, Self-Care Instructions: Abdominal Pain (ED) Additional Instructions: You were evaluated in the ED today due to nausea and abdominal pain. Your labs did not reveal elevated white count, electrolyte abnormality. Your physical exam was reassuring as you were afebrile, abdomen soft, nonrigid, nondistended. You had CT imaging of the abdomen done approximately 3 weeks ago on 05/17/2025 which did not reveal any emergent or acute processes. I do not believe you need additional imaging at this time, as intensity and quality of the pain has not changed. You were medicated in the department with IV fluids, Toradol, droperidol which alleviated your nausea and abdominal pain. As we discussed I think you would benefit from discontinuing use of cannabis at this time. I believe you should observe your symptoms over the next 4 weeks while not smoking cannabis to see if this relieves her nausea and abdominal pain. I provided referral for primary care doctor, please call the numbers to establish yourself, they will not call you. I will prescribe Zofran for you that you can take for episodes of nausea. To manage your lumbar back pain, take 500 mg of Tylenol, 400 mg ibuprofen every 6 hours for pain management. Please return to the emergency department if you experience worsening abdominal pain, fevers over 100.4?, vomiting, blood in the vomit, bloody stool, in the needle sensation of your inner thighs, difficulty walking, or any new/worsening/concerning symptoms. Prescriptions: New ondansetron HCl 4 mg tablet 4 mg PO Q8H PRN (Reason: nausea and vomiting) Qty: 14 0RF No Action ibuprofen 800 mg tablet 800 mg PO Q8H PRN (Reason: pain) Qty: 14 0RF acetaminophen-codeine 300-30 mg tablet 1 tab PO Q8H PRN (Reason: pain) Qty: 10 0RF levofloxacin 750 mg tablet 750 mg PO DAILY 7 Days Qty: 7 0RF prednisone 20 mg tablet 40 mg PO DAILY Qty: 10 0RF codeine-guaifenesin 10-100 mg/5 mL liquid 10 ml PO Q4-6H PRN (Reason: cough) Qty: 237 0RF albuterol sulfate [ProAir HFA] 90 mcg/actuation HFA aerosol inhaler 2 puff inhalation Q4-6H PRN (Reason: Wheezing) Qty: 8.5 0RF ibuprofen 400 mg tablet 400 mg PO Q6H PRN (Reason: pain) Qty: 20 0RF doxycycline monohydrate 100 mg capsule 100 mg PO BID Qty: 14 0RF naproxen 500 mg tablet 500 mg PO BID 7 Days Qty: 14 0RF clindamycin HCl 300 mg capsule 300 mg PO Q6H 5 Days Qty: 20 0RF amoxicillin-pot clavulanate 875-125 mg tablet 1 tab PO Q12H 7 Days Qty: 14 0RF oxycodone 5 mg tablet 5 mg PO Q4H PRN (Reason: pain) Qty: 14 0RF Rx Instructions: Patient may request partial fill; Partial Fill upon patient request. ondansetron 4 mg tablet,disintegrating 4 mg PO Q6-8H PRN (Reason: nausea and vomiting) Qty: 14 0RF ibuprofen 600 mg tablet 600 mg PO Q6H PRN (Reason: pain) Qty: 20 0RF cyclobenzaprine 5 mg tablet 5 mg PO TID PRN (Reason: muscle spasm) Qty: 10 0RF oxycodone 5 mg tablet 5 mg PO Q6H PRN (Reason: pain) Qty: 14 0RF Rx Instructions: Partial Fill upon patient request. cyclobenzaprine 10 mg tablet 10 mg PO TID PRN (Reason: muscle spasm) Qty: 20 0RF prednisone 20 mg tablet 40 mg PO DAILY 5 Days Qty: 10 0RF lidocaine 5 % adhesive patch,medicated 1 patch topical DAILY Qty: 30 0RF Rx Instructions: leave on most painful area for up to 12 hrs morphine 15 mg tablet 15 mg PO Q6H PRN (Reason: pain) Qty: 12 0RF Rx Instructions: partial fill okay; Partial Fill upon patient request. ondansetron 4 mg tablet,disintegrating 4 mg PO Q8H PRN (Reason: nausea and vomiting) Qty: 20 0RF naproxen [Naprosyn] 500 mg tablet 500 mg PO BID PRN (Reason: PAIN) Qty: 20 0RF prednisone 20 mg tablet 60 mg PO DAILY Qty: 12 0RF ondansetron 4 mg tablet,disintegrating 4 mg PO Q8H PRN (Reason: nausea and vomiting) Qty: 20 0RF acetaminophen [Tylenol Extra Strength] 500 mg tablet 500 mg PO Q6H PRN (Reason: fever or pain) Qty: 14 0RF lidocaine [Lidoderm] 5 % adhesive patch,medicated 1 patch topical DAILY MDD remove after 12 hours PRN (Reason: pain) Qty: 30 0RF Rx Instructions: leave on most painful area for up to 12 hrs naproxen 500 mg tablet 500 mg PO BID PRN (Reason: pain) 10 Days Qty: 20 0RF cyclobenzaprine 5 mg tablet 5 mg PO Q8H PRN (Reason: pain (scale score 7-10)) 5 Days Qty: 14 0RF ibuprofen 600 mg tablet 600 mg PO TID PRN (Reason: pain) Qty: 14 0RF cyclobenzaprine 10 mg tablet 10 mg PO TID PRN (Reason: muscle spasm) Qty: 14 0RF lidocaine 5 % adhesive patch,medicated 1 patch topical DAILY Qty: 15 0RF Rx Instructions: leave on most painful area for up to 12 hrs ketorolac 10 mg tablet 10 mg PO .B.i.d. PRN (Reason: pain) Qty: 7 0RF Rx Instructions: No take this medication with ibuprofen, naproxen or any NSAIDs Referrals: [facility] [place]Provider Group, [facility] Practice] [facility] [Provider Group, Family Practice] Print Language: Danish
[2025-06-05 08:24] LABS: MANUAL DIFF FLAG NO
[2025-06-05 08:26] LABS: Hematocrit 43.7 % (42.0-52.0); Hemoglobin 15.6 g/dl (14.0-18.0); Imm Gran Abs Auto 0.01 X10*3/uL (0.00-0.03); Imm Gran Pct Auto 0.2 % (0.0-0.4); Lymphocytes Absolute Auto 1.6 X10*3/uL (1.2-4.9); Mean Corpuscular HGB Conc 35.7 g/dl (31.0-36.0); Mean Corpuscular Hemoglobin 31.3 pg (27.0-33.0); Mean Corpuscular Volume 87.6 fL (80.0-98.0); NRBC Abs Auto 0.000 X10*3/uL (0.0-0.012); NRBC Pct Auto 0.0 /100WBC (0.0-0.2); Platelet Count 197 X10*3/uL (160-400); Red Blood Count 4.99 X10*6/uL (4.60-5.80); White Blood Count 4.8 X10*3/uL (4.8-10.8)
[2025-06-05 08:43] LABS: Alanine Aminotransferase 48 U/L (0-40); Albumin Level 4.8 g/dL (3.5-5.0); Alkaline Phosphatase 56 U/L (39-117); Anion Gap 9 (12-20); Aspartate Amino Transferase 32 U/L (5-37); Blood Urea Nitrogen 15 mg/dL (9-16); Calcium 9.3 mg/dL (8.4-10.2); Carbon Dioxide 29 mmol/L (22-29); Chloride 107 mmol/L (96-108); Creatinine Clr Calc Pharmacy 142.4; Estimated Glomerular Filt Rate > 60; Lipase 9 U/L (8-78); Magnesium 2.1 mg/dL (1.6-2.6); Potassium 3.8 mmol/L (3.3-5.1); Sodium 141 mmol/L (135-145); Total Protein 7.2 g/dL (6.5-8.0)
[2025-06-05 09:01] LABS: Resp Syncy Virus RNA Qual PCR NEGATIVE (Negative); SARS COV2 PCR INHOUSE NEGATIVE (Negative)
[2025-06-05 11:07] VITALS: BP 118/74; PULSE 52; RESP 16; O2SAT 99
--- NOTE | 2025-06-05 11:15 | PC.NURSE ---
35 M presents to ED with R abdominal pain, L lower back pain that radiates to L leg, n/v since yesterday. Pt sts smokes marijuana after work, may be related. RR even and unlabored, denies SOB or CP. A+Ox4, ambulatory, calm, cooperative.
[2025-06-05] MEDS: Lactated Ringers 1,000 ML 999 ML IV (11:35)
[2025-06-05 13:08] VITALS: BP 110/65; PULSE 53; RESP 18; TEMP -17.7; TEMP 0; O2SAT 99
== END 2025-06-05 13:12 | disposition home or self-care (01) ==
PROVIDERS: Physician Assistant Medical; Emergency Provider Emergency Medicine
DX: R10.9 Unspecified abdominal pain (principal); R11.10 Vomiting, unspecified; R11.0 Nausea; J45.909 Unspecified asthma, uncomplicated; M54.50 Low back pain, unspecified; F12.90 Cannabis use, unspecified, uncomplicated; Z03.818 Encounter for observation for suspected exposure to other biological agents ruled out
CPT/HCPCS: 36415; 80048; 80076; 83690; 83735; 85025; 87637; 96361; 96374; 96375; 99284; 99285; J1790; J1885; J2405; J7120

== ENCOUNTER → 2025-06-25 21:18 | Outpatient (BNV) | payer SELFPAY | PROVIDERS: Visit Provider Specialist | DX: S83.92XA Sprain of unspecified site of left knee, initial encounter (principal); M25.562 Pain in left knee; W18.30XA Fall on same level, unspecified, initial encounter | CPT/HCPCS: 73560 ==

== ENCOUNTER 2025-06-25 21:23 | Emergency (ER) | payer SELFPAY ==
--- NOTE | ~2025-06-25 | XR_ITS ---
CLINICAL HISTORY: trauma,pain 2 view left knee Comparison: None provided Findings: No acute fracture. No dislocation. No significant loss of joint space, osteophytes, or erosions. No joint effusion. No radiopaque foreign body. IMPRESSION: 1. No acute findings. This document has been electronically signed by: Oralia Ulrich MD on 06/25/2025 22:33:03
[2025-06-25 21:52] VITALS: BP 122/62; PULSE 82; RESP 17; TEMP 36.3; O2SAT 97; BMI 27.4
[2025-06-26 01:32] VITALS: BP 110/61; PULSE 59; RESP 17; TEMP 36.7; O2SAT 98
--- NOTE | 2025-06-26 01:37 | ED_ITS ---
HPI - Fall General Chief Complaint: Fall Stated Complaint: body aches; left foot injury (fall) Time Seen by Provider: 06/26/25 00:43 Related Data Previous Rx's ?Medication ?Instructions ?Recorded acetaminophen 300 mg-codeine 30 mg 1 tab PO Q8H PRN pa in #10 tabs 06/20/21 tablet ibuprofen 800 mg tablet 800 mg PO Q8H PRN pain #14 t abs 06/20/21 albuterol sulfate 90 mcg/actuation 2 puff inhalation Q 4-6H PRN 08/19/21 aerosol inhaler (ProAir HFA) Wheezing #8.5 grams codeine 10 mg-guaifenesin 100 mg/5 10 ml PO Q4-6H PRN cough #237 mL 08/19/21 mL oral liquid levofloxacin 750 mg tablet 750 mg PO DAILY 7 days #7 t abs 08/19/21 prednisone 20 mg tablet 40 mg (2 x 20 mg) PO DAILY # 10 tabs 08/19/21 clindamycin HCl 300 mg capsule 300 mg PO Q6H 5 days #2 0 caps 12/10/21 amoxicillin 875 mg-potassium 1 tab PO Q12H 7 days #14 tabs 07/24/22 clavulanate 125 mg tablet ondansetron 4 mg disintegrating 4 mg PO Q6-8H PRN naus ea and 07/24/22 tablet vomiting #14 tabs oxycodone 5 mg tablet 5 mg PO Q4H PRN pain #14 tab s 07/24/22 doxycycline monohydrate 100 mg 100 mg PO BID Chlamydia infection 09/15/22 capsule #14 caps ibuprofen 400 mg tablet 400 mg PO Q6H PRN pain #20 t abs 09/15/22 naproxen 500 mg tablet 500 mg PO BID 7 days #14 tab s 10/12/22 cyclobenzaprine 5 mg tablet 5 mg PO TID PRN muscle spa sm #10 02/12/23 tabs ibuprofen 600 mg tablet 600 mg PO Q6H PRN pain #20 t abs 02/12/23 oxycodone 5 mg tablet 5 mg PO Q6H PRN pain #14 tab s 02/12/23 acetaminophen 500 mg tablet 500 mg PO Q6H PRN fever or pain 04/05/23 (Tylenol Extra Strength) #14 tabs cyclobenzaprine 5 mg tablet 5 mg PO Q8H PRN pain (scal e score 04/05/23 7-10) 5 days #14 tabs lidocaine 5 % topical patch 1 patch topical DAILY PRN pain #30 04/05/23 (Lidoderm) ea naproxen 500 mg tablet 500 mg PO BID PRN pain 10 da ys #20 04/05/23 tabs cyclobenzaprine 10 mg tablet 10 mg PO TID PRN muscle s pasm #20 01/07/25 tabs lidocaine 5 % topical patch 1 patch topical DAILY #30 ea 01/07/25 morphine 15 mg immediate release 15 mg PO Q6H PRN pain #12 tabs 01/07/25 tablet ondansetron 4 mg disintegrating 4 mg PO Q8H PRN nausea and 01/07/25 tablet vomiting #20 tabs prednisone 20 mg tablet 40 mg (2 x 20 mg) PO DAILY 5 days 01/07/25 #10 tabs naproxen 500 mg tablet (Naprosyn) 500 mg PO BID PRN PA IN #20 tabs 03/13/25 prednisone 20 mg tablet 60 mg (3 x 20 mg) PO DAILY # 12 tabs 03/13/25 cyclobenzaprine 10 mg tablet 10 mg PO TID PRN muscle s pasm #14 04/20/25 tabs ibuprofen 600 mg tablet 600 mg PO TID PRN pain #14 t abs 04/20/25 lidocaine 5 % topical patch 1 patch topical DAILY #15 ea 04/20/25 ondansetron 4 mg disintegrating 4 mg PO Q8H PRN nausea and 05/15/25 tablet vomiting #20 tabs ketorolac 10 mg tablet 10 mg PO .B.i.d. PRN pain #7 tabs 05/17/25 ondansetron HCl 4 mg tablet 4 mg PO Q8H PRN nausea and 06/05/25 vomiting #14 tabs methocarbamol 500 mg tablet 1,000 mg (2 x 500 mg) PO Q 6H 72 06/26/25 hours #24 tabs Allergies Allergy/AdvReac Type Severity Reaction Status Date / Time No Known Allergies Allergy Verified 06/25/25 21:59 [facility] Past Medical History Medical History Asthma Social History Social History Unable to assess alcohol history related to: Unknown Alcohol intake: current Alcohol intake frequency: holidays/special occasions only Patient Tobacco Use Status: Current everyday Tobacco user Smoked in Last 30 Days: No Substance Use Type: Marijuana Advance Directives: No Advance Directives Information Provided: No Do you have a plan to hurt others: No Plan Physical Exam Vital Signs: Vital Signs: Last Vital Signs Temp 98.1 F 06/26/25 01:32 Pulse 59 06/26/25 01:32 Resp 17 06/26/25 01:32 BP 110/61 06/26/25 01:32 Pulse Ox 98 06/26/25 01:32 O2 Del Method Room Air 06/26/25 01:32 BMI result Body Mass Index 27.4 Medical Decision Making Medical Decision Making MDM Narrative: Patient presents today with musculoskeletal injury. Differential diagnosis includes fracture, soft tissue contusion, ligamentous injury, tendon injury, infection, laceration, among others. Patient is neurovascularly intact upon arrival to the emergency department. Based on physical exam, appropriate imaging was ordered. Differential Diagnosis Differential Diagnoses: The differential diagnosis associated with the presentation includes (as above) Discharge Plan Discharge Clinical Impression: Fall from ground level, Left knee sprain Patient Disposition: Home, Self-Care Instructions: Knee Sprain (ED) Additional Instructions: Follow up with your primary care doctor as soon as possible. Use the knee immobilizer as needed for comfort. Take methocarbamol for muscle spasms and severe pain. Otherwise, you may use Tylenol and Motrin as needed for pain. Return to the ER with any new or worsening symptoms including: Worsening pain in your knee despite medications, fevers greater than 100?, redness at tracks away from your wound, any new symptom that concerns you. Call 911 with any medical emergency. Prescriptions: New methocarbamol 500 mg tablet 1,000 mg PO Q6H 3 Days Qty: 24 0RF No Action ibuprofen 800 mg tablet 800 mg PO Q8H PRN (Reason: pain) Qty: 14 0RF acetaminophen-codeine 300-30 mg tablet 1 tab PO Q8H PRN (Reason: pain) Qty: 10 0RF levofloxacin 750 mg tablet 750 mg PO DAILY 7 Days Qty: 7 0RF prednisone 20 mg tablet 40 mg PO DAILY Qty: 10 0RF codeine-guaifenesin 10-100 mg/5 mL liquid 10 ml PO Q4-6H PRN (Reason: cough) Qty: 237 0RF albuterol sulfate [ProAir HFA] 90 mcg/actuation HFA aerosol inhaler 2 puff inhalation Q4-6H PRN (Reason: Wheezing) Qty: 8.5 0RF ibuprofen 400 mg tablet 400 mg PO Q6H PRN (Reason: pain) Qty: 20 0RF doxycycline monohydrate 100 mg capsule 100 mg PO BID Qty: 14 0RF naproxen 500 mg tablet 500 mg PO BID 7 Days Qty: 14 0RF clindamycin HCl 300 mg capsule 300 mg PO Q6H 5 Days Qty: 20 0RF amoxicillin-pot clavulanate 875-125 mg tablet 1 tab PO Q12H 7 Days Qty: 14 0RF oxycodone 5 mg tablet 5 mg PO Q4H PRN (Reason: pain) Qty: 14 0RF Rx Instructions: Patient may request partial fill; Partial Fill upon patient request. ondansetron 4 mg tablet,disintegrating 4 mg PO Q6-8H PRN (Reason: nausea and vomiting) Qty: 14 0RF ibuprofen 600 mg tablet 600 mg PO Q6H PRN (Reason: pain) Qty: 20 0RF cyclobenzaprine 5 mg tablet 5 mg PO TID PRN (Reason: muscle spasm) Qty: 10 0RF oxycodone 5 mg tablet 5 mg PO Q6H PRN (Reason: pain) Qty: 14 0RF Rx Instructions: Partial Fill upon patient request. cyclobenzaprine 10 mg tablet 10 mg PO TID PRN (Reason: muscle spasm) Qty: 20 0RF prednisone 20 mg tablet 40 mg PO DAILY 5 Days Qty: 10 0RF lidocaine 5 % adhesive patch,medicated 1 patch topical DAILY Qty: 30 0RF Rx Instructions: leave on most painful area for up to 12 hrs morphine 15 mg tablet 15 mg PO Q6H PRN (Reason: pain) Qty: 12 0RF Rx Instructions: partial fill okay; Partial Fill upon patient request. ondansetron 4 mg tablet,disintegrating 4 mg PO Q8H PRN (Reason: nausea and vomiting) Qty: 20 0RF naproxen [Naprosyn] 500 mg tablet 500 mg PO BID PRN (Reason: PAIN) Qty: 20 0RF prednisone 20 mg tablet 60 mg PO DAILY Qty: 12 0RF ondansetron 4 mg tablet,disintegrating 4 mg PO Q8H PRN (Reason: nausea and vomiting) Qty: 20 0RF ondansetron HCl 4 mg tablet 4 mg PO Q8H PRN (Reason: nausea and vomiting) Qty: 14 0RF acetaminophen [Tylenol Extra Strength] 500 mg tablet 500 mg PO Q6H PRN (Reason: fever or pain) Qty: 14 0RF lidocaine [Lidoderm] 5 % adhesive patch,medicated 1 patch topical DAILY MDD remove after 12 hours PRN (Reason: pain) Qty: 30 0RF Rx Instructions: leave on most painful area for up to 12 hrs naproxen 500 mg tablet 500 mg PO BID PRN (Reason: pain) 10 Days Qty: 20 0RF cyclobenzaprine 5 mg tablet 5 mg PO Q8H PRN (Reason: pain (scale score 7-10)) 5 Days Qty: 14 0RF ibuprofen 600 mg tablet 600 mg PO TID PRN (Reason: pain) Qty: 14 0RF cyclobenzaprine 10 mg tablet 10 mg PO TID PRN (Reason: muscle spasm) Qty: 14 0RF lidocaine 5 % adhesive patch,medicated 1 patch topical DAILY Qty: 15 0RF Rx Instructions: leave on most painful area for up to 12 hrs ketorolac 10 mg tablet 10 mg PO .B.i.d. PRN (Reason: pain) Qty: 7 0RF Rx Instructions: No take this medication with ibuprofen, naproxen or any NSAIDs Print Language: Greek
[2025-06-26] MEDS: Lidocaine 4 % Patch ADH..PATCH 1 PATCH TRANSDERMA (01:44)
[2025-06-26 01:48] VITALS: BP 110/61; PULSE 59; RESP 17; TEMP 36.7; O2SAT 98
== END 2025-06-26 01:57 | disposition home or self-care (01) ==
PROVIDERS: Emergency Provider Emergency Medicine
DX: S83.92XA Sprain of unspecified site of left knee, initial encounter (principal); M79.10 Myalgia, unspecified site; M79.672 Pain in left foot; F17.210 Nicotine dependence, cigarettes, uncomplicated; X58.XXXA Exposure to other specified factors, initial encounter; Y93.9 Activity, unspecified; Y92.9 Unspecified place or not applicable; Y99.8 Other external cause status
CPT/HCPCS: 73560; 99283; 99284

== ENCOUNTER 2025-07-26 13:30 | Emergency (ER) | payer SELFPAY ==
--- NOTE | ~2025-07-26 | XR_ITS ---
CLINICAL HISTORY: cough 2 view chest x-ray. Comparison: CT/[facility] - CT CHEST WITH IV CONTRAST - 04/05/23 11:08 EDT Findings: The lungs are adequately expanded. No focal consolidation. No effusion or pneumothorax. Cardiac and mediastinal contours are within normal limits. No acute osseous abnormality Impression: No acute process. This document has been electronically signed by: Norm Gustafson MD on 07/26/2025 20:05:04
--- NOTE | 2025-07-26 13:54 | ED.GENADULT ---
HPI - General Adult General Chief complaint: Nausea/Vomiting/Diarrhea Stated complaint: fever, weak, diarrhea, bodyaches Time Seen by Provider: 07/26/25 17:43 Source: patient Mode of arrival: ambulatory Limitations: no limitations History of Present Illness ED Provider: Dr. Klein HPI narrative: This is a 35-year-old male presented hospital today for diffuse body aches, fever nausea and diarrhea. This occurred yesterday however persisted. He is complaining of a cramping abdominal pain. Stated that he has been having persistent diarrhea associated with this and fever at home. Does complain of sore throat and nasal congestion as well. Related Data Previous Rx's ?Medication ?Instructions ?Recorded acetaminophen 300 mg-codeine 30 mg 1 tab PO Q8H PRN pain #10 tabs 06/20/21 tablet ibuprofen 800 mg tablet 800 mg PO Q8H PRN pain #14 tabs 06/20/21 albuterol sulfate 90 mcg/actuation 2 puff inhalation Q4-6H PRN 08/19/21 aerosol inhaler (ProAir HFA) Wheezing #8.5 grams codeine 10 mg-guaifenesin 100 mg/5 10 ml PO Q4-6H PRN cough #237 mL 08/19/21 mL oral liquid levofloxacin 750 mg tablet 750 mg PO DAILY 7 days #7 tabs 08/19/21 prednisone 20 mg tablet 40 mg (2 x 20 mg) PO DAILY #10 tabs 08/19/21 clindamycin HCl 300 mg capsule 300 mg PO Q6H 5 days #20 caps 12/10/21 amoxicillin 875 mg-potassium 1 tab PO Q12H 7 days #14 tabs 07/24/22 clavulanate 125 mg tablet ondansetron 4 mg disintegrating 4 mg PO Q6-8H PRN nausea and 07/24/22 tablet vomiting #14 tabs oxycodone 5 mg tablet 5 mg PO Q4H PRN pain #14 tabs 07/24/22 doxycycline monohydrate 100 mg 100 mg PO BID Chlamydia infection 09/15/22 capsule #14 caps ibuprofen 400 mg tablet 400 mg PO Q6H PRN pain #20 tabs 09/15/22 naproxen 500 mg tablet 500 mg PO BID 7 days #14 tabs 10/12/22 cyclobenzaprine 5 mg tablet 5 mg PO TID PRN muscle spasm #10 02/12/23 tabs ibuprofen 600 mg tablet 600 mg PO Q6H PRN pain #20 tabs 02/12/23 oxycodone 5 mg tablet 5 mg PO Q6H PRN pain #14 tabs 02/12/23 acetaminophen 500 mg tablet 500 mg PO Q6H PRN fever or pain 04/05/23 (Tylenol Extra Strength) #14 tabs cyclobenzaprine 5 mg tablet 5 mg PO Q8H PRN pain (scale score 04/05/23 7-10) 5 days #14 tabs lidocaine 5 % topical patch 1 patch topical DAILY PRN pain #30 04/05/23 (Lidoderm) ea naproxen 500 mg tablet 500 mg PO BID PRN pain 10 days #20 04/05/23 tabs cyclobenzaprine 10 mg tablet 10 mg PO TID PRN muscle spasm #20 01/07/25 tabs lidocaine 5 % topical patch 1 patch topical DAILY #30 ea 01/07/25 morphine 15 mg immediate release 15 mg PO Q6H PRN pain #12 tabs 01/07/25 tablet ondansetron 4 mg disintegrating 4 mg PO Q8H PRN nausea and 01/07/25 tablet vomiting #20 tabs prednisone 20 mg tablet 40 mg (2 x 20 mg) PO DAILY 5 days 01/07/25 #10 tabs naproxen 500 mg tablet (Naprosyn) 500 mg PO BID PRN PAIN #20 tabs 03/13/25 prednisone 20 mg tablet 60 mg (3 x 20 mg) PO DAILY #12 tabs 03/13/25 cyclobenzaprine 10 mg tablet 10 mg PO TID PRN muscle spasm #14 04/20/25 tabs ibuprofen 600 mg tablet 600 mg PO TID PRN pain #14 tabs 04/20/25 lidocaine 5 % topical patch 1 patch topical DAILY #15 ea 04/20/25 ondansetron 4 mg disintegrating 4 mg PO Q8H PRN nausea and 05/15/25 tablet vomiting #20 tabs ketorolac 10 mg tablet 10 mg PO .B.i.d. PRN pain #7 tabs 05/17/25 ondansetron HCl 4 mg tablet 4 mg PO Q8H PRN nausea and 06/05/25 vomiting #14 tabs methocarbamol 500 mg tablet 1,000 mg (2 x 500 mg) PO Q6H 72 06/26/25 hours #24 tabs dicyclomine 10 mg capsule 10 mg PO TID PRN abdominal pain 07/26/25 #20 caps loperamide 2 mg capsule (Imodium 2 mg PO Q6H PRN loose stool #20 07/26/25 A-D) caps ondansetron 4 mg disintegrating 4 mg PO Q8H PRN nausea and 07/26/25 tablet vomiting #14 tabs Allergies Allergy/AdvReac Type Severity Reaction Status Date / Time No Known Allergies Allergy Verified 07/26/25 13:57 Review of Systems Review of Systems: Pertinent review of systems as mentioned in HPI. All other system otherwise negative. [facility] Past Medical History [facility] Narrative: Medical history as mentioned in HPI Medical History Asthma Social History Social History Alcohol intake: current Alcohol intake frequency: holidays/special occasions only Patient Tobacco Use Status: Current everyday Tobacco user Substance Use Type: Marijuana Advance Directives: No Advance Directives Information Provided: No Do you have a plan to hurt others: No Plan Physical Exam ED Exam Exam: General: Pleasant, no distress, interacting appropriately Head: Normacephalic, atraumatic ENT: oral mucosa moist, neck supple, no tracheal deviation Cardiovascular: regular rate, regular rhythm, no murmurs, rubbing, gallops Respiratory: CTAB, no wheeze, rales, rhonchi Gastrointestinal: Soft, non distended, diffuse tenderness on palpation Extremities: No limb pain or swelling, no calf tenderness Neurological: Awake and alert, no facial droop noted Skin: Warm and dry Psychiatric: Appropriate mood and thoughts Vital Signs: Vital Signs - 24 hr 07/26/25 13:55 07/26/25 19:25 Temperature 98.4 F 98.5 F Pulse Rate 76 68 Respiratory Rate 18 18 Blood Pressure 118/73 111/65 Pulse Oximetry 98 97 Oxygen Delivery Method Room Air Room Air BMI result Body Mass Index 26.6 Course Course Course Narrative: This is an RME: Additional HPI, ROS, PE not included below will be deferred to primary provider. RME assessment and note performed by: Misti Mccloud PA-C This is a [id number]-male, with no known medical problems, who presents to the ER with a complaint of body aches, subjective fevers since yesterday. Patient well-appearing. Plan: Labs, UA, viral swabs Medications Administered Discontinued Medications Generic Name Dose Route Start Last Admin Trade Name Jina PRN Reason Stop Dose Admin Acetaminophen 975 mg 07/26/25 17:48 07/26/25 17:54 Acetaminophen 325 Mg Tablet PO 07/26/25 17:49 975 mg ONCE ONE Administration Al Hydroxide/Mg Hydroxide 30 ml 07/26/25 17:58 07/26/25 18:04 Magnesium Hydrox/Alum Hydrox 30 Ml Oral.Susp PO 07/26/25 17:59 30 ml ONCE ONE Administration Lidocaine HCl 15 ml 07/26/25 17:58 07/26/25 18:04 Lidocaine Hcl Viscous 2 % 15 Ml Solution MUCOUS MEM 07/26/25 17:59 15 ml ONCE ONE Administration Loperamide HCl 6 mg 07/26/25 17:48 07/26/25 17:54 Loperamide Hcl 2 Mg Capsule PO 07/26/25 17:49 6 mg ONCE ONE Administration Ondansetron HCl 4 mg 07/26/25 17:48 07/26/25 17:54 Ondansetron Odt 4 Mg Tab.Rapdis TRANSLINGU 07/26/25 17:49 4 mg ONCE ONE Administration Medical Decision Making Medical Decision Making [facility] Narrative: This is a 35-year-old male presented hospital today for evaluation of nausea vomiting and diarrhea. Patient is complaining of sore throat and fever as well. I suspect patient likely has gastroenteritis. Plan to give patient has some GI cocktail here, Zofran and Tylenol. Patient was able to tolerate p.o. challenge. He states his abdominal pain is improved however he does have some pinching sensation in his abdomen. We will plan to discharge patient will Bentyl. Zofran. Imodium. Encouraged conservative treatment for the patient. Work note will be provided. Patient will be discharged. Differential Diagnosis Differential Diagnoses: The differential diagnosis associated with the presentation includes Gastroenteritis, viral syndrome, colitis Lab Data 07/26/25 14:39 07/26/25 14:39 Labs: Lab Results 07/26/25 07/26/25 Range/Units 14:39 15:00 WBC 7.5 (4.8-10.8) X10*3/uL RBC 4.88 (4.60-5.80) X10*6/uL Hgb 15.6 (14.0-18.0) g/dl Hct 42.5 (42.0-52.0) % MCV 87.1 (80.0-98.0) fL MCH 32.0 (27.0-33.0) pg MCHC 36.7 H (31.0-36.0) g/dl RDW 13.1 (11.0-16.0) % Plt Count 197 (160-400) X10*3/uL MPV 9.9 (9.4-12.4) fL Immature Gran % (Auto) 0.3 (0.0-0.4) % Neut % (Auto) 66.7 (45-73) % Lymph % (Auto) 24.9 (20-40) % Hettinger % (Auto) 6.1 (2-11) % Eos % (Auto) 1.5 (0-4) % Baso % (Auto) 0.5 (0-2) % Lymph # (Auto) 1.9 (1.2-4.9) X10*3/uL Hettinger # (Auto) 0.5 (0.1-1.2) X10*3/uL Eos # (Auto) 0.1 (0.0-0.4) X10*3/uL Baso # (Auto) 0.0 (0.0-0.2) X10*3/uL Abs Immat Gran (auto) 0.02 (0.00-0.03) X10*3/uL Absolute Neuts (auto) 5.0 (2.0-8.3) x10*3/uL Absolute Nucleated RBC 0.000 (0.0-0.012) X10*3/uL Nucleated RBC % (auto) 0.0 (0.0-0.2) /100WBC Sodium 142 (135-145) mmol/L Potassium 3.8 (3.3-5.1) mmol/L Chloride 109 H (96-108) mmol/L Carbon Dioxide 28 (22-29) mmol/L Anion Gap 9 L (12-20) BUN 11 (9-16) mg/dL Creatinine 0.78 (0.5-1.4) mg/dL Estim Creat Clear Calc 147.8 Estimated GFR > 60 Random Glucose 116 H (60-115) mg/dL Calcium 9.2 (8.4-10.2) mg/dL Magnesium 2.3 (1.6-2.6) mg/dL Total Bilirubin 0.6 (0.0-1.0) mg/dL Direct Bilirubin 0.2 (0.0-0.5) mg/dL AST 22 (5-37) U/L ALT 23 (0-40) U/L Alkaline Phosphatase 50 (39-117) U/L Total Protein 7.1 (6.5-8.0) g/dL Albumin 4.6 (3.5-5.0) g/dL Lipase 10 (8-78) U/L Urine Color Yellow Urine Appearance Clear Urine pH 8.5 (5.0-9.0) Ur Specific Sigel 1.020 (1.005-1.025) Urine Protein Negative (Neg-Trace) mg/dL Urine Glucose (UA) Negative (Negative) mg/dL Urine Ketones Negative (Negative) mg/dL Urine Blood Negative (Negative) Urine Nitrite Negative (Negative) Ur Leukocyte Esterase Negative (Negative) COVID-19 (DUANE) Negative (Negative) COVID-19 Clin Com See Note Influenza Type A (YOLANDA) Negative (Negative) Influenza Type B (YOLANDA) Negative (Negative) Influenza A & B Note See Note Discharge Plan Discharge Clinical Impression: Gastroenteritis Patient Disposition: Home, Self-Care Instructions: Acute Diarrhea (ED) Prescriptions: New loperamide [Imodium A-D] 2 mg capsule 2 mg PO Q6H PRN (Reason: loose stool) Qty: 20 0RF ondansetron 4 mg tablet,disintegrating 4 mg PO Q8H PRN (Reason: nausea and vomiting) Qty: 14 0RF dicyclomine 10 mg capsule 10 mg PO TID PRN (Reason: abdominal pain) Qty: 20 0RF No Action ibuprofen 800 mg tablet 800 mg PO Q8H PRN (Reason: pain) Qty: 14 0RF acetaminophen-codeine 300-30 mg tablet 1 tab PO Q8H PRN (Reason: pain) Qty: 10 0RF levofloxacin 750 mg tablet 750 mg PO DAILY 7 Days Qty: 7 0RF prednisone 20 mg tablet 40 mg PO DAILY Qty: 10 0RF codeine-guaifenesin 10-100 mg/5 mL liquid 10 ml PO Q4-6H PRN (Reason: cough) Qty: 237 0RF albuterol sulfate [ProAir HFA] 90 mcg/actuation HFA aerosol inhaler 2 puff inhalation Q4-6H PRN (Reason: Wheezing) Qty: 8.5 0RF ibuprofen 400 mg tablet 400 mg PO Q6H PRN (Reason: pain) Qty: 20 0RF doxycycline monohydrate 100 mg capsule 100 mg PO BID Qty: 14 0RF naproxen 500 mg tablet 500 mg PO BID 7 Days Qty: 14 0RF clindamycin HCl 300 mg capsule 300 mg PO Q6H 5 Days Qty: 20 0RF amoxicillin-pot clavulanate 875-125 mg tablet 1 tab PO Q12H 7 Days Qty: 14 0RF oxycodone 5 mg tablet 5 mg PO Q4H PRN (Reason: pain) Qty: 14 0RF Rx Instructions: Patient may request partial fill; Partial Fill upon patient request. ondansetron 4 mg tablet,disintegrating 4 mg PO Q6-8H PRN (Reason: nausea and vomiting) Qty: 14 0RF ibuprofen 600 mg tablet 600 mg PO Q6H PRN (Reason: pain) Qty: 20 0RF cyclobenzaprine 5 mg tablet 5 mg PO TID PRN (Reason: muscle spasm) Qty: 10 0RF oxycodone 5 mg tablet 5 mg PO Q6H PRN (Reason: pain) Qty: 14 0RF Rx Instructions: Partial Fill upon patient request. cyclobenzaprine 10 mg tablet 10 mg PO TID PRN (Reason: muscle spasm) Qty: 20 0RF prednisone 20 mg tablet 40 mg PO DAILY 5 Days Qty: 10 0RF lidocaine 5 % adhesive patch,medicated 1 patch topical DAILY Qty: 30 0RF Rx Instructions: leave on most painful area for up to 12 hrs morphine 15 mg tablet 15 mg PO Q6H PRN (Reason: pain) Qty: 12 0RF Rx Instructions: partial fill okay; Partial Fill upon patient request. ondansetron 4 mg tablet,disintegrating 4 mg PO Q8H PRN (Reason: nausea and vomiting) Qty: 20 0RF naproxen [Naprosyn] 500 mg tablet 500 mg PO BID PRN (Reason: PAIN) Qty: 20 0RF prednisone 20 mg tablet 60 mg PO DAILY Qty: 12 0RF ondansetron 4 mg tablet,disintegrating 4 mg PO Q8H PRN (Reason: nausea and vomiting) Qty: 20 0RF ondansetron HCl 4 mg tablet 4 mg PO Q8H PRN (Reason: nausea and vomiting) Qty: 14 0RF methocarbamol 500 mg tablet 1,000 mg PO Q6H 3 Days Qty: 24 0RF acetaminophen [Tylenol Extra Strength] 500 mg tablet 500 mg PO Q6H PRN (Reason: fever or pain) Qty: 14 0RF lidocaine [Lidoderm] 5 % adhesive patch,medicated 1 patch topical DAILY MDD remove after 12 hours PRN (Reason: pain) Qty: 30 0RF Rx Instructions: leave on most painful area for up to 12 hrs naproxen 500 mg tablet 500 mg PO BID PRN (Reason: pain) 10 Days Qty: 20 0RF cyclobenzaprine 5 mg tablet 5 mg PO Q8H PRN (Reason: pain (scale score 7-10)) 5 Days Qty: 14 0RF ibuprofen 600 mg tablet 600 mg PO TID PRN (Reason: pain) Qty: 14 0RF cyclobenzaprine 10 mg tablet 10 mg PO TID PRN (Reason: muscle spasm) Qty: 14 0RF lidocaine 5 % adhesive patch,medicated 1 patch topical DAILY Qty: 15 0RF Rx Instructions: leave on most painful area for up to 12 hrs ketorolac 10 mg tablet 10 mg PO .B.i.d. PRN (Reason: pain) Qty: 7 0RF Rx Instructions: No take this medication with ibuprofen, naproxen or any NSAIDs Stand Alone Forms: Work/School Release Print Language: Wolof
[2025-07-26 13:55] VITALS: BP 118/73; PULSE 76; RESP 18; TEMP 36.9; O2SAT 98; BMI 26.6
[2025-07-26 14:44] LABS: MANUAL DIFF FLAG NO
[2025-07-26 14:48] LABS: Hematocrit 42.5 % (42.0-52.0); Hemoglobin 15.6 g/dl (14.0-18.0); Imm Gran Abs Auto 0.02 X10*3/uL (0.00-0.03); Imm Gran Pct Auto 0.3 % (0.0-0.4); Lymphocytes Absolute Auto 1.9 X10*3/uL (1.2-4.9); Mean Corpuscular HGB Conc 36.7 g/dl (31.0-36.0); Mean Corpuscular Hemoglobin 32.0 pg (27.0-33.0); Mean Corpuscular Volume 87.1 fL (80.0-98.0); NRBC Abs Auto 0.000 X10*3/uL (0.0-0.012); NRBC Pct Auto 0.0 /100WBC (0.0-0.2); Platelet Count 197 X10*3/uL (160-400); Red Blood Count 4.88 X10*6/uL (4.60-5.80); White Blood Count 7.5 X10*3/uL (4.8-10.8)
[2025-07-26 14:59] LABS: Alanine Aminotransferase 23 U/L (0-40); Albumin Level 4.6 g/dL (3.5-5.0); Alkaline Phosphatase 50 U/L (39-117); Anion Gap 9 (12-20); Aspartate Amino Transferase 22 U/L (5-37); Blood Urea Nitrogen 11 mg/dL (9-16); Calcium 9.2 mg/dL (8.4-10.2); Carbon Dioxide 28 mmol/L (22-29); Chloride 109 mmol/L (96-108); Creatinine Clr Calc Pharmacy 147.8; Estimated Glomerular Filt Rate > 60; Lipase 10 U/L (8-78); Magnesium 2.3 mg/dL (1.6-2.6); Potassium 3.8 mmol/L (3.3-5.1); Sodium 142 mmol/L (135-145); Total Protein 7.1 g/dL (6.5-8.0)
[2025-07-26 15:03] LABS: COVID-19 Test Negative (Negative); IDNOW Serial# 55D5AD1C; IDNOW Serial# 58CA691E; Influenza B2 Negative (Negative)
[2025-07-26 15:11] LABS: Appearance Urine Clear; Glucose Urine UA Negative (Negative); PH 8.5 (5.0-9.0); Specific Gravity - Urine 1.020 (1.005-1.025)
[2025-07-26] MEDS: Lidocaine HCl Viscous 2 % 15 ML SOLUTION MUCOUS MEM (18:04)
[2025-07-26] MEDS: Magnesium Hydrox/Alum Hydrox 30 ML ORAL.SUSP PO (18:04)
[2025-07-26 19:25] VITALS: BP 111/65; PULSE 68; RESP 18; TEMP 36.9; O2SAT 97
[2025-07-26 20:15] VITALS: BP 111/65; PULSE 68; RESP 18; TEMP 36.9; O2SAT 97
== END 2025-07-26 20:16 | disposition home or self-care (01) ==
PROVIDERS: Physician Assistant Medical; Emergency Provider Student in an Organized Health Care Education/Training Program
DX: K52.9 Noninfective gastroenteritis and colitis, unspecified (principal); R11.2 Nausea with vomiting, unspecified; M79.10 Myalgia, unspecified site; R50.9 Fever, unspecified; R05.9 Cough, unspecified; J02.9 Acute pharyngitis, unspecified; F17.210 Nicotine dependence, cigarettes, uncomplicated; Z11.52 Encounter for screening for COVID-19; Z79.899 Other long term (current) drug therapy
CPT/HCPCS: 71046; 80048; 80076; 81003; 83690; 83735; 85025; 87502; 87635; 99283; 99284

== ENCOUNTER → 2025-07-26 17:59 | Outpatient (BNV) | payer SELFPAY | PROVIDERS: Emergency Provider Student in an Organized Health Care Education/Training Program; Visit Provider Radiology Vascular & Interventional Radiology | DX: R05.9 Cough, unspecified (principal) | CPT/HCPCS: 71046 ==

== ENCOUNTER 2025-09-04 20:32 | Emergency (ER) | payer SELFPAY ==
--- NOTE | ~2025-09-04 | XR_ITS ---
CLINICAL HISTORY: Lower back pain after back injury 3 views lumbar spine Comparison: CT/SR - CT ABDOMEN PELVIS W IV CON - 05/15/25 17:00 EDT CR - XR LUMBAR SPINE 2-3V - 01/07/25 14:12 EDT Findings: There is continued straightening of the normal lumbar lordosis. There is 2 mm of retrolisthesis of L4 on L5. No fractures identified. Disc space heights are well preserved. [id number] stool throughout the colon. IMPRESSION: No fracture. This document has been electronically signed by: Luis Vyas MD on 09/05/2025 00:31:28
[2025-09-04 20:50] VITALS: BP 130/55; PULSE 79; RESP 16; TEMP 36.5; O2SAT 97; BMI 26.0
--- NOTE | 2025-09-04 23:29 | ED_ITS ---
HPI - Back Pain/Injury General Chief Complaint: Back Pain/Injury Stated Complaint: lower back pain/left side Time Seen by Provider: 09/04/25 23:11 Source: patient Mode of arrival: ambulatory Limitations: no limitations History of Present Illness ED Provider: DR. Veliz HPI Narrative: 35-year-old male came in for evaluation of low back pain radiating to the right leg started 2 days ago, patient was sitting in his girlfriend was sitting on his lap lost balance was avoiding to drop his girlfriend on the floor by twisting his back felt a pop in his back come pain has been getting progressively worse over the past 2 days, no dysuria, no frequency urination, no urinary or stool incontinence, no numbness, no weakness. Related Data Previous Rx's ?Medication ?Instructions ?Recorded acetaminophen 300 mg-codeine 30 mg 1 tab PO Q8H PRN pa in #10 tabs 06/20/21 tablet ibuprofen 800 mg tablet 800 mg PO Q8H PRN pain #14 t abs 06/20/21 albuterol sulfate 90 mcg/actuation 2 puff inhalation Q 4-6H PRN 08/19/21 aerosol inhaler (ProAir HFA) Wheezing #8.5 grams codeine 10 mg-guaifenesin 100 mg/5 10 ml PO Q4-6H PRN cough #237 mL 08/19/21 mL oral liquid levofloxacin 750 mg tablet 750 mg PO DAILY 7 days #7 t abs 08/19/21 prednisone 20 mg tablet 40 mg (2 x 20 mg) PO DAILY # 10 tabs 08/19/21 clindamycin HCl 300 mg capsule 300 mg PO Q6H 5 days #2 0 caps 12/10/21 amoxicillin 875 mg-potassium 1 tab PO Q12H 7 days #14 tabs 07/24/22 clavulanate 125 mg tablet ondansetron 4 mg disintegrating 4 mg PO Q6-8H PRN naus ea and 07/24/22 tablet vomiting #14 tabs oxycodone 5 mg tablet 5 mg PO Q4H PRN pain #14 tab s 07/24/22 doxycycline monohydrate 100 mg 100 mg PO BID Chlamydia infection 09/15/22 capsule #14 caps ibuprofen 400 mg tablet 400 mg PO Q6H PRN pain #20 t abs 09/15/22 naproxen 500 mg tablet 500 mg PO BID 7 days #14 tab s 10/12/22 cyclobenzaprine 5 mg tablet 5 mg PO TID PRN muscle spa sm #10 02/12/23 tabs ibuprofen 600 mg tablet 600 mg PO Q6H PRN pain #20 t abs 02/12/23 oxycodone 5 mg tablet 5 mg PO Q6H PRN pain #14 tab s 02/12/23 acetaminophen 500 mg tablet 500 mg PO Q6H PRN fever or pain 04/05/23 (Tylenol Extra Strength) #14 tabs cyclobenzaprine 5 mg tablet 5 mg PO Q8H PRN pain (scal e score 04/05/23 7-10) 5 days #14 tabs lidocaine 5 % topical patch 1 patch topical DAILY PRN pain #30 04/05/23 (Lidoderm) ea naproxen 500 mg tablet 500 mg PO BID PRN pain 10 da ys #20 04/05/23 tabs cyclobenzaprine 10 mg tablet 10 mg PO TID PRN muscle s pasm #20 01/07/25 tabs lidocaine 5 % topical patch 1 patch topical DAILY #30 ea 01/07/25 morphine 15 mg immediate release 15 mg PO Q6H PRN pain #12 tabs 01/07/25 tablet ondansetron 4 mg disintegrating 4 mg PO Q8H PRN nausea and 01/07/25 tablet vomiting #20 tabs prednisone 20 mg tablet 40 mg (2 x 20 mg) PO DAILY 5 days 01/07/25 #10 tabs naproxen 500 mg tablet (Naprosyn) 500 mg PO BID PRN PA IN #20 tabs 03/13/25 prednisone 20 mg tablet 60 mg (3 x 20 mg) PO DAILY # 12 tabs 03/13/25 cyclobenzaprine 10 mg tablet 10 mg PO TID PRN muscle s pasm #14 04/20/25 tabs ibuprofen 600 mg tablet 600 mg PO TID PRN pain #14 t abs 04/20/25 lidocaine 5 % topical patch 1 patch topical DAILY #15 ea 04/20/25 ondansetron 4 mg disintegrating 4 mg PO Q8H PRN nausea and 05/15/25 tablet vomiting #20 tabs ketorolac 10 mg tablet 10 mg PO .B.i.d. PRN pain #7 tabs 05/17/25 ondansetron HCl 4 mg tablet 4 mg PO Q8H PRN nausea and 06/05/25 vomiting #14 tabs methocarbamol 500 mg tablet 1,000 mg (2 x 500 mg) PO Q 6H 72 06/26/25 hours #24 tabs dicyclomine 10 mg capsule 10 mg PO TID PRN abdominal p ain 07/26/25 #20 caps loperamide 2 mg capsule (Imodium 2 mg PO Q6H PRN loose stool #20 07/26/25 A-D) caps ondansetron 4 mg disintegrating 4 mg PO Q8H PRN nausea and 07/26/25 tablet vomiting #14 tabs cyclobenzaprine 10 mg tablet 10 mg PO BEDTIME #10 tabs 09/04/25 ibuprofen 800 mg tablet 800 mg PO Q8H PRN pain #10 t abs 09/04/25 oxycodone 5 mg tablet 5 mg PO BID PRN pain #5 tabs 09/04/25 Allergies Allergy/AdvReac Type Severity Reaction Status Date / Time No Known Allergies Allergy Verified 09/04/25 20:56 Review of Systems Review of Systems: All other systems are reviewed and are negative Constitutional: Reports as per HPI and Reports no additional constitutional complaints Eyes: Reports as per HPI and Reports no additional eye complaints Reports system reviewed and no additional complaints, except as documented Cardiovascular: Reports as per HPI and Reports no additional cardiovascular complaints Respiratory: Reports as per HPI and Reports no additional respiratory complaints Gastrointestinal: Reports as per HPI and Reports no additional gastrointestinal complaints Genitourinary: Reports no additional female genitourinary complaints Musculoskeletal: Reports no additional musculoskeletal complaints Skin/Breast: Reports system reviewed and no additional complaints, except as docu Psychiatric: Reports no additional psychiatric complaints Endocrine: Reports no additional endocrine complaints Hematologic/Lymphatic: Reports no additional hematologic/lymphatic complaints Allergic/Immunologic: Reports no additional allergic/immunologic complaints Reports system reviewed and no additional complaints, except as documented and Reports Abnormal speech present FOR[facility]LY [facility], [facility] Past Medical History Medical History Asthma Social History Social History Alcohol intake: current Alcohol intake frequency: holidays/special occasions only Patient Tobacco Use Status: Current everyday Tobacco user Substance Use Type: Marijuana Advance Directives: No Advance Directives Information Provided: No Physical Exam Vital Signs: Vital Signs: Last Vital Signs Temp 98.4 F 09/05/25 00:45 Pulse 68 09/05/25 00:45 Resp 16 09/05/25 00:45 BP 117/53 L 09/05/25 00:45 Pulse Ox 97 09/05/25 00:45 O2 Del Method Room Air 09/05/25 00:45 BMI result Body Mass Index 26.0 Vital signs have been reviewed and appear to be correct. Blood pressure elevated. Heart rate normal. Respiratory rate normal. Temperature normal. Oxygen saturation normal. Appearance: Alert. Oriented X3. No acute distress. Head: Normal external exam. Normocephalic. Atraumatic. No Rivera signs noted. No raccoon eyes noted Eyes: PERRLA. EOMI. Conjunctiva and sclera normal. Eyelids normal. ENT: TM's Normal. Pharynx normal. Uvula midline. Moist mucous membranes. No trismus noted. No drooling noted. No muffled voice noted. Neck: Normal inspection. Neck supple. FROM. No adenopathy. Thyroid Normal. No meningeal signs. No neck mass noted. CVS: Normal heart rate and rhythm. Heart sound normal. No murmurs noted. Pulses normal throughout. Respiratory: No respiratory distress. Painless inspiration. Breath sounds normal. No wheezes/rales/rhonchi noted. Chest nontender. No accessory muscle usage noted or decreased air movement noted. Abdomen: Soft and nontender. Bowel sounds normal in all 4 quadrants. No distention noted. No organomegaly noted. No visible injury noted. Back: No CVA tenderness. Full range of motion noted. No step-off, no deformity. Skin: Skin warm and dry. Normal skin color. Normal skin turgor. No rashes/lesions/lacerations noted. Extremities: No lower extremity edema. Extremities exhibit normal range of motion. Extremities nontender. Neuro: Mental status: Normal attention, orientation, memory, and affect. Cranial nerves: Pupils are equal, round and reactive to light, EOMI, visual levy are fall, face is symmetric, facial sensations are normal. Motor examination normal muscle tone, strength to 4 extremities. DTR are +2, planter's are flexor. Sensory exam; normal coordination, no ataxia, gait stable. Cerebellar exam: Yfhsni-hz-cwbz and ulbo-jx-gcmd is normal. Extrapyramidal system: No tremors, no rigidity with normal facial expressions. Pronator drift not present. Perianal sensation is intact. Course Reevaluation(s) Reevaluation #1: Feels better after IM Dilaudid and Toradol, will reassure, discharge on oxycodone, NSAIDs, muscle relaxant, and rest, heating pads. Time: 00:30 Medications Administered Discontinued Medications Generic Name Dose Route Start Last Admin Trade Name Freq PRN Reason Stop Dose Admin Hydromorphone HCl 1 mg 09/04/25 23:27 09/05/25 00:08 Hydromorphone Hcl 1 Mg/Ml Syringe IM 09/04/25 23:28 1 mg ONCE ONE Administration Protocol Ketorolac Tromethamine 15 mg 09/04/25 23:27 09/05/25 00:08 Ketorolac Tromethamine 15 Mg/Ml Vial IM 09/04/25 23:28 15 mg ONCE ONE Administration Medical Decision Making Differential Diagnosis Differential Diagnoses: The differential diagnosis associated with the presentation includes (Lumbar radiculopathy, lumbar fracture, myofascial low back pain.) Admission/Observation Consideration of admission/observation: Escalation of care including admission/observation considered Lab Data MDM Lab Attestation statement: I reviewed the patient's lab results. Independent Interpretation I performed an independent interpretation of an: Plain X-Ray (Lumbar spine: No acute lumbar spine injury.) Radiology Impression Discussion of test interpretation with radiology: I have reviewed the radiologist's reading. Discharge Plan Discharge Clinical Impression: Left lumbar radiculopathy Patient Disposition: Home, Self-Care Instructions: Acute Low Back Pain (ED) Prescriptions: New oxycodone 5 mg tablet 5 mg PO BID PRN (Reason: pain) Qty: 5 0RF Rx Instructions: Partial Fill upon patient request. ibuprofen 800 mg tablet 800 mg PO Q8H PRN (Reason: pain) Qty: 10 0RF cyclobenzaprine 10 mg tablet 10 mg PO BEDTIME Qty: 10 0RF No Action ibuprofen 800 mg tablet 800 mg PO Q8H PRN (Reason: pain) Qty: 14 0RF acetaminophen-codeine 300-30 mg tablet 1 tab PO Q8H PRN (Reason: pain) Qty: 10 0RF levofloxacin 750 mg tablet 750 mg PO DAILY 7 Days Qty: 7 0RF prednisone 20 mg tablet 40 mg PO DAILY Qty: 10 0RF codeine-guaifenesin 10-100 mg/5 mL liquid 10 ml PO Q4-6H PRN (Reason: cough) Qty: 237 0RF albuterol sulfate [ProAir HFA] 90 mcg/actuation HFA aerosol inhaler 2 puff inhalation Q4-6H PRN (Reason: Wheezing) Qty: 8.5 0RF ibuprofen 400 mg tablet 400 mg PO Q6H PRN (Reason: pain) Qty: 20 0RF doxycycline monohydrate 100 mg capsule 100 mg PO BID Qty: 14 0RF naproxen 500 mg tablet 500 mg PO BID 7 Days Qty: 14 0RF clindamycin HCl 300 mg capsule 300 mg PO Q6H 5 Days Qty: 20 0RF amoxicillin-pot clavulanate 875-125 mg tablet 1 tab PO Q12H 7 Days Qty: 14 0RF oxycodone 5 mg tablet 5 mg PO Q4H PRN (Reason: pain) Qty: 14 0RF Rx Instructions: Patient may request partial fill; Partial Fill upon patient request. ondansetron 4 mg tablet,disintegrating 4 mg PO Q6-8H PRN (Reason: nausea and vomiting) Qty: 14 0RF ibuprofen 600 mg tablet 600 mg PO Q6H PRN (Reason: pain) Qty: 20 0RF cyclobenzaprine 5 mg tablet 5 mg PO TID PRN (Reason: muscle spasm) Qty: 10 0RF oxycodone 5 mg tablet 5 mg PO Q6H PRN (Reason: pain) Qty: 14 0RF Rx Instructions: Partial Fill upon patient request. cyclobenzaprine 10 mg tablet 10 mg PO TID PRN (Reason: muscle spasm) Qty: 20 0RF prednisone 20 mg tablet 40 mg PO DAILY 5 Days Qty: 10 0RF lidocaine 5 % adhesive patch,medicated 1 patch topical DAILY Qty: 30 0RF Rx Instructions: leave on most painful area for up to 12 hrs morphine 15 mg tablet 15 mg PO Q6H PRN (Reason: pain) Qty: 12 0RF Rx Instructions: partial fill okay; Partial Fill upon patient request. ondansetron 4 mg tablet,disintegrating 4 mg PO Q8H PRN (Reason: nausea and vomiting) Qty: 20 0RF naproxen [Naprosyn] 500 mg tablet 500 mg PO BID PRN (Reason: PAIN) Qty: 20 0RF prednisone 20 mg tablet 60 mg PO DAILY Qty: 12 0RF ondansetron 4 mg tablet,disintegrating 4 mg PO Q8H PRN (Reason: nausea and vomiting) Qty: 20 0RF ondansetron HCl 4 mg tablet 4 mg PO Q8H PRN (Reason: nausea and vomiting) Qty: 14 0RF methocarbamol 500 mg tablet 1,000 mg PO Q6H 3 Days Qty: 24 0RF acetaminophen [Tylenol Extra Strength] 500 mg tablet 500 mg PO Q6H PRN (Reason: fever or pain) Qty: 14 0RF lidocaine [Lidoderm] 5 % adhesive patch,medicated 1 patch topical DAILY MDD remove after 12 hours PRN (Reason: pain) Qty: 30 0RF Rx Instructions: leave on most painful area for up to 12 hrs naproxen 500 mg tablet 500 mg PO BID PRN (Reason: pain) 10 Days Qty: 20 0RF cyclobenzaprine 5 mg tablet 5 mg PO Q8H PRN (Reason: pain (scale score 7-10)) 5 Days Qty: 14 0RF ibuprofen 600 mg tablet 600 mg PO TID PRN (Reason: pain) Qty: 14 0RF cyclobenzaprine 10 mg tablet 10 mg PO TID PRN (Reason: muscle spasm) Qty: 14 0RF lidocaine 5 % adhesive patch,medicated 1 patch topical DAILY Qty: 15 0RF Rx Instructions: leave on most painful area for up to 12 hrs ketorolac 10 mg tablet 10 mg PO .B.i.d. PRN (Reason: pain) Qty: 7 0RF Rx Instructions: No take this medication with ibuprofen, naproxen or any NSAIDs loperamide [Imodium A-D] 2 mg capsule 2 mg PO Q6H PRN (Reason: loose stool) Qty: 20 0RF ondansetron 4 mg tablet,disintegrating 4 mg PO Q8H PRN (Reason: nausea and vomiting) Qty: 14 0RF dicyclomine 10 mg capsule 10 mg PO TID PRN (Reason: abdominal pain) Qty: 20 0RF Stand Alone Forms: Work/School Release Print Language: Iranian
--- NOTE | 2025-09-05 00:13 | PC.NURSE ---
medicated per mar.
[2025-09-05 00:45] VITALS: BP 117/53; PULSE 68; RESP 16; TEMP 36.9; O2SAT 97
--- NOTE | 2025-09-05 01:08 | PC.NURSE ---
reviewed discharge instructions with pt, pt verbalized understanding, no sign of distress upon discharge.
[2025-09-05 01:09] VITALS: BP 117/53; PULSE 68; RESP 16; TEMP 36.9; O2SAT 97
== END 2025-09-05 01:09 | disposition home or self-care (01) ==
PROVIDERS: Emergency Provider Emergency Medicine
DX: M54.16 Radiculopathy, lumbar region (principal)
CPT/HCPCS: 72100; 96374; 96375; 99284; J1171; J1885

== ENCOUNTER → 2025-09-04 23:29 | Outpatient (BNV) | payer SELFPAY | PROVIDERS: Emergency Provider Emergency Medicine; Visit Provider Radiology Diagnostic Radiology | DX: S39.92XA Unspecified injury of lower back, initial encounter (principal) | CPT/HCPCS: 72100 ==

== ENCOUNTER 2025-09-24 19:11 | Emergency (ER) | payer SELFPAY ==
--- NOTE | ~2025-09-24 | XR_ITS ---
CLINICAL HISTORY: CP 2 view chest x-ray. Comparison: 07/26/2025 Findings: No consolidation or effusion. Cardiac and mediastinal contours are stable. Bones unremarkable. Impression: 1. No acute pulmonary disease. This document has been electronically signed by: Christian Forman MD on 09/24/2025 20:08:17
--- NOTE | 2025-09-24 19:13 | ECG_ITS ---
Test Reason : chest pain Blood Pressure : */* mmHG Vent. Rate : 86 BPM Atrial Rate : 86 BPM P-R Int : 146 ms QRS Dur : 88 ms QT Int : 346 ms P-R-T Axes : 65 63 47 degrees QTcB Int : 414 ms Normal sinus rhythm Normal ECG When compared with ECG of 15-Apr-2017 17:11, No significant change was found Referred By: Generic ED Physician Electronically Signed By: Sergo Gonzalez
--- NOTE | 2025-09-24 19:23 | ED_ITS ---
HPI - Chest Pain General Chief Complaint: Chest Pain Stated Complaint: chest pain Time Seen by Provider: 09/24/25 20:09 Source: patient Limitations: no limitations History of Present Illness ED Provider: Criss Campbell PA-C HPI narrative: 35-year-old male presents with chest pain x1 day. Pain over left lower chest wall, worse with movement and palpation. Denies trauma, new heavy lifting, that could have precipitated his symptoms. Patient states he does work out on a regular basis. Denies cough or cold symptoms no fever no shortness of breath. Patient also complains of epigastric discomfort described as indigestion. Denies postprandial symptoms, nausea vomiting, abdominal distention, constipation or diarrhea. Related Data Previous Rx's ?Medication ?Instructions ?Recorded acetaminophen 300 mg-codeine 30 mg 1 tab PO Q8H PRN pa in #10 tabs 06/20/21 tablet ibuprofen 800 mg tablet 800 mg PO Q8H PRN pain #14 t abs 06/20/21 albuterol sulfate 90 mcg/actuation 2 puff inhalation Q 4-6H PRN 08/19/21 aerosol inhaler (ProAir HFA) Wheezing #8.5 grams codeine 10 mg-guaifenesin 100 mg/5 10 ml PO Q4-6H PRN cough #237 mL 08/19/21 mL oral liquid levofloxacin 750 mg tablet 750 mg PO DAILY 7 days #7 t abs 08/19/21 prednisone 20 mg tablet 40 mg (2 x 20 mg) PO DAILY # 10 tabs 08/19/21 clindamycin HCl 300 mg capsule 300 mg PO Q6H 5 days #2 0 caps 12/10/21 amoxicillin 875 mg-potassium 1 tab PO Q12H 7 days #14 tabs 07/24/22 clavulanate 125 mg tablet ondansetron 4 mg disintegrating 4 mg PO Q6-8H PRN naus ea and 07/24/22 tablet vomiting #14 tabs oxycodone 5 mg tablet 5 mg PO Q4H PRN pain #14 tab s 07/24/22 doxycycline monohydrate 100 mg 100 mg PO BID Chlamydia infection 09/15/22 capsule #14 caps ibuprofen 400 mg tablet 400 mg PO Q6H PRN pain #20 t abs 09/15/22 naproxen 500 mg tablet 500 mg PO BID 7 days #14 tab s 10/12/22 cyclobenzaprine 5 mg tablet 5 mg PO TID PRN muscle spa sm #10 02/12/23 tabs ibuprofen 600 mg tablet 600 mg PO Q6H PRN pain #20 t abs 02/12/23 oxycodone 5 mg tablet 5 mg PO Q6H PRN pain #14 tab s 02/12/23 acetaminophen 500 mg tablet 500 mg PO Q6H PRN fever or pain 04/05/23 (Tylenol Extra Strength) #14 tabs cyclobenzaprine 5 mg tablet 5 mg PO Q8H PRN pain (scal e score 04/05/23 7-10) 5 days #14 tabs lidocaine 5 % topical patch 1 patch topical DAILY PRN pain #30 04/05/23 (Lidoderm) ea naproxen 500 mg tablet 500 mg PO BID PRN pain 10 da ys #20 04/05/23 tabs cyclobenzaprine 10 mg tablet 10 mg PO TID PRN muscle s pasm #20 01/07/25 tabs lidocaine 5 % topical patch 1 patch topical DAILY #30 ea 01/07/25 morphine 15 mg immediate release 15 mg PO Q6H PRN pain #12 tabs 01/07/25 tablet ondansetron 4 mg disintegrating 4 mg PO Q8H PRN nausea and 01/07/25 tablet vomiting #20 tabs prednisone 20 mg tablet 40 mg (2 x 20 mg) PO DAILY 5 days 01/07/25 #10 tabs naproxen 500 mg tablet (Naprosyn) 500 mg PO BID PRN PA IN #20 tabs 03/13/25 prednisone 20 mg tablet 60 mg (3 x 20 mg) PO DAILY # 12 tabs 03/13/25 cyclobenzaprine 10 mg tablet 10 mg PO TID PRN muscle s pasm #14 04/20/25 tabs ibuprofen 600 mg tablet 600 mg PO TID PRN pain #14 t abs 04/20/25 lidocaine 5 % topical patch 1 patch topical DAILY #15 ea 04/20/25 ondansetron 4 mg disintegrating 4 mg PO Q8H PRN nausea and 05/15/25 tablet vomiting #20 tabs ketorolac 10 mg tablet 10 mg PO .B.i.d. PRN pain #7 tabs 05/17/25 ondansetron HCl 4 mg tablet 4 mg PO Q8H PRN nausea and 06/05/25 vomiting #14 tabs methocarbamol 500 mg tablet 1,000 mg (2 x 500 mg) PO Q 6H 72 06/26/25 hours #24 tabs dicyclomine 10 mg capsule 10 mg PO TID PRN abdominal p ain 07/26/25 #20 caps loperamide 2 mg capsule (Imodium 2 mg PO Q6H PRN loose stool #20 07/26/25 A-D) caps ondansetron 4 mg disintegrating 4 mg PO Q8H PRN nausea and 07/26/25 tablet vomiting #14 tabs cyclobenzaprine 10 mg tablet 10 mg PO BEDTIME #10 tabs 09/04/25 ibuprofen 800 mg tablet 800 mg PO Q8H PRN pain #10 t abs 09/04/25 oxycodone 5 mg tablet 5 mg PO BID PRN pain #5 tabs 09/04/25 ketorolac 10 mg tablet 10 mg PO Q6H PRN pain #20 ta bs 09/24/25 methocarbamol 750 mg tablet 1,500 mg (2 x 750 mg) PO Q 8H PRN 09/24/25 pain, moderate #24 tabs sucralfate 1 gram tablet (Carafate) 1 g PO TID PRN ind igestion #10 tabs 09/24/25 Allergies Allergy/AdvReac Type Severity Reaction Status Date / Time No Known Allergies Allergy Verified 09/24/25 19:26 [facility] Past Medical History Medical History Asthma Social History Social History Alcohol intake: current Alcohol intake frequency: does not drink Patient Tobacco Use Status: Current everyday Tobacco user Smoked in Last 30 Days: No Use of substances other than those prescribed or required for medical reasons: Yes Substance Use Type: Marijuana Substance Use Frequency: Occasionally Advance Directives: No Advance Directives Information Provided: No Physical Exam 2 Vital Signs: Vital Signs: Last Vital Signs Temp 97.8 F 09/24/25 20:37 Pulse 65 09/24/25 20:37 Resp 13 09/24/25 20:37 BP 112/56 L 09/24/25 20:37 Pulse Ox 98 09/24/25 20:37 O2 Del Method Room Air 09/24/25 20:37 BMI result Body Mass Index 26.4 Course Course Course Narrative: This is an RME: Additional HPI, ROS, PE not included below will be deferred to primary provider. RME assessment and note performed by: Misti Mccloud PA-C This is a [id number]-male who presents to the ER with complaints of chest pain and left sided facial pain. Reports increased stressors at work. Pain is constant. No recent illness. No recent travels, surgeries, hospitalizations. No drug or etoh use. Smokes marijuana. Well appearing. Vitals stable Plan: Labs, EKG, CXR, further ER eval needed Medications Administered Discontinued Medications Generic Name Dose Route Start Last Admin Trade Name Freq PRN Reason Stop Dose Admin Ketorolac Tromethamine 15 mg 09/24/25 20:55 09/24/25 21:11 Ketorolac Tromethamine 15 Mg/Ml Vial IM 09/24/25 20:56 15 mg ONCE ONE Administration Methocarbamol 1,500 mg 09/24/25 20:55 09/24/25 21:11 Methocarbamol 750 Mg Tablet PO 09/24/25 20:56 1,500 mg ONCE ONE Administration Sucralfate 1 gm 09/24/25 20:55 09/24/25 21:11 Sucralfate Oral Suspension 1 Gm/10 Ml Oral.Susp PO 09/24/25 20:56 1 gm ONCE ONE Administration Medical Decision Making Medical Decision Making [facility] Narrative: 35-year-old male presents with chest pain x1 day. Pain over left lower chest wall, worse with movement and palpation. Denies trauma, new heavy lifting, that could have precipitated his symptoms. Patient states he does work out on a regular basis. Denies cough or cold symptoms no fever no shortness of breath. Patient also complains of epigastric discomfort described as indigestion. Denies postprandial symptoms, nausea vomiting, abdominal distention, constipation or diarrhea. No chronic issues History: Per patient I have considered the following differential diagnoses: ACS, chest wall pain, costochondritis, viral syndrome, pneumonia, biliary colic, cholecystitis, gastritis, constipation Plan: ACS was considered, however the patient has no risk factors for coronary artery disease, his heart score is 0, screening labs including cardiac enzymes EKG and chest x-ray completed. His pain is most consistent with chest wall pain, however he can not recall a mechanism that precipitated his symptoms. Thought about costochondritis, however he has not had preceding viral syndrome. Given epigastric discomfort, seems to be consistent with a indigestion. He is not having any postprandial symptoms or focal right upper quadrant pain to suggest biliary pathology. LFTs were also normal. He is not distended and denies constipation, that could be a potential trigger for his GERD related symptoms. We will be treating with Toradol methocarbamol and Carafate. I have independently reviewed the following tests: Labs: no leukocytosis, not anemic, no electrolyte abnormality, troponin less than 2.7 EKG: Normal sinus rhythm, rate 86, no ischemic changes no ectopy Chest x-ray:Findings: No consolidation or effusion. Cardiac and mediastinal contours are stable. Bones unremarkable. Impression: 1. No acute pulmonary disease. Differential Diagnosis Differential Diagnoses: The differential diagnosis associated with the presentation includes See [facility] Admission/Observation Consideration of admission/observation: Escalation of care including admission/observation considered not applicable Lab Data [facility] Lab Attestation statement: I reviewed the patient's lab results. 09/24/25 19:36 09/24/25 19:36 Labs: Lab Results 09/24/25 Range/Units 19:36 WBC 7.3 (4.8-10.8) X10*3/uL RBC 5.13 (4.60-5.80) X10*6/uL Hgb 15.8 (14.0-18.0) g/dl Hct 44.7 (42.0-52.0) % MCV 87.1 (80.0-98.0) fL MCH 30.8 (27.0-33.0) pg MCHC 35.3 (31.0-36.0) g/dl RDW 12.6 (11.0-16.0) % Plt Count 224 (160-400) X10*3/uL MPV 9.8 (9.4-12.4) fL Immature Gran % (Auto) 0.1 (0.0-0.4) % Neut % (Auto) 56.4 (45-73) % Lymph % (Auto) 34.1 (20-40) % Benton % (Auto) 8.2 (2-11) % Eos % (Auto) 0.5 (0-4) % Baso % (Auto) 0.7 (0-2) % Lymph # (Auto) 2.5 (1.2-4.9) X10*3/uL Benton # (Auto) 0.6 (0.1-1.2) X10*3/uL Eos # (Auto) 0.0 (0.0-0.4) X10*3/uL Baso # (Auto) 0.1 (0.0-0.2) X10*3/uL Abs Immat Gran (auto) 0.01 (0.00-0.03) X10*3/uL Absolute Neuts (auto) 4.1 (2.0-8.3) x10*3/uL Absolute Nucleated RBC 0.000 (0.0-0.012) X10*3/uL Nucleated RBC % (auto) 0.0 (0.0-0.2) /100WBC Sodium 140 (135-145) mmol/L Potassium 3.5 (3.3-5.1) mmol/L Chloride 109 H (96-108) mmol/L Carbon Dioxide 24 (22-29) mmol/L Anion Gap 11 L (12-20) BUN 15 (9-16) mg/dL Creatinine 0.84 (0.5-1.4) mg/dL Estim Creat Clear Calc 137.2 Estimated GFR > 60 Random Glucose 83 (60-115) mg/dL Calcium 9.6 (8.4-10.2) mg/dL Magnesium 2.2 (1.6-2.6) mg/dL Total Bilirubin 0.9 (0.0-1.0) mg/dL Direct Bilirubin 0.3 (0.0-0.5) mg/dL AST 21 (5-37) U/L ALT 20 (0-40) U/L Alkaline Phosphatase 58 (39-117) U/L Troponin I High Sens < 2.7 (<3.5-35.0) ng/L Total Protein 7.7 (6.5-8.0) g/dL Albumin 5.1 H (3.5-5.0) g/dL Independent Interpretation I performed an independent interpretation of an: EKG Radiology Impression Discussion of test interpretation with radiology: I have reviewed the radiologist's reading. Discharge Plan Discharge Clinical Impression: Chest wall pain, Epigastric abdominal pain, Indigestion Patient Disposition: Home, Self-Care Instructions: GERD (Gastroesophageal Reflux Disease) (ED), Epigastric Pain (ED), Chest Wall Pain (ED) Additional Instructions: your discomfort is consistent with chest wall pain. See home care instructions. Use the ketorolac as needed for pain take it with food. Use the methocarbamol as needed for further pain, this is a muscle relaxant. This medication will cause drowsiness do not drive or operate machinery while taking the medication. In regard to your upper abdominal discomfort it is consistent with a GERD. see home care instructions. Do not eat 3 hours before bed, eating smaller meals throughout the day can help deter symptoms. Some common triggers for GERD are spicy food, acidic food, fatty greasy food, anything carbonated, alcohol or caffeine. Use the Carafate as needed for upper abdominal discomfort. Follow up with your primary care provider as needed. Prescriptions: New sucralfate [Carafate] 1 gram tablet 1 g PO TID PRN (Reason: indigestion) Qty: 10 0RF ketorolac 10 mg tablet 10 mg PO Q6H PRN (Reason: pain) Qty: 20 0RF Rx Instructions: maximum total duration of 5 days from all oral, intranasal, or parenteral formulations, The patient received an intramuscular dose of Toradol here in the emergency room methocarbamol 750 mg tablet 1,500 mg PO Q8H PRN (Reason: pain, moderate) Qty: 24 0RF No Action ibuprofen 800 mg tablet 800 mg PO Q8H PRN (Reason: pain) Qty: 14 0RF acetaminophen-codeine 300-30 mg tablet 1 tab PO Q8H PRN (Reason: pain) Qty: 10 0RF levofloxacin 750 mg tablet 750 mg PO DAILY 7 Days Qty: 7 0RF prednisone 20 mg tablet 40 mg PO DAILY Qty: 10 0RF codeine-guaifenesin 10-100 mg/5 mL liquid 10 ml PO Q4-6H PRN (Reason: cough) Qty: 237 0RF albuterol sulfate [ProAir HFA] 90 mcg/actuation HFA aerosol inhaler 2 puff inhalation Q4-6H PRN (Reason: Wheezing) Qty: 8.5 0RF ibuprofen 400 mg tablet 400 mg PO Q6H PRN (Reason: pain) Qty: 20 0RF doxycycline monohydrate 100 mg capsule 100 mg PO BID Qty: 14 0RF naproxen 500 mg tablet 500 mg PO BID 7 Days Qty: 14 0RF clindamycin HCl 300 mg capsule 300 mg PO Q6H 5 Days Qty: 20 0RF amoxicillin-pot clavulanate 875-125 mg tablet 1 tab PO Q12H 7 Days Qty: 14 0RF oxycodone 5 mg tablet 5 mg PO Q4H PRN (Reason: pain) Qty: 14 0RF Rx Instructions: Patient may request partial fill; Partial Fill upon patient request. ondansetron 4 mg tablet,disintegrating 4 mg PO Q6-8H PRN (Reason: nausea and vomiting) Qty: 14 0RF ibuprofen 600 mg tablet 600 mg PO Q6H PRN (Reason: pain) Qty: 20 0RF cyclobenzaprine 5 mg tablet 5 mg PO TID PRN (Reason: muscle spasm) Qty: 10 0RF oxycodone 5 mg tablet 5 mg PO Q6H PRN (Reason: pain) Qty: 14 0RF Rx Instructions: Partial Fill upon patient request. cyclobenzaprine 10 mg tablet 10 mg PO TID PRN (Reason: muscle spasm) Qty: 20 0RF prednisone 20 mg tablet 40 mg PO DAILY 5 Days Qty: 10 0RF lidocaine 5 % adhesive patch,medicated 1 patch topical DAILY Qty: 30 0RF Rx Instructions: leave on most painful area for up to 12 hrs morphine 15 mg tablet 15 mg PO Q6H PRN (Reason: pain) Qty: 12 0RF Rx Instructions: partial fill okay; Partial Fill upon patient request. ondansetron 4 mg tablet,disintegrating 4 mg PO Q8H PRN (Reason: nausea and vomiting) Qty: 20 0RF naproxen [Naprosyn] 500 mg tablet 500 mg PO BID PRN (Reason: PAIN) Qty: 20 0RF prednisone 20 mg tablet 60 mg PO DAILY Qty: 12 0RF ondansetron 4 mg tablet,disintegrating 4 mg PO Q8H PRN (Reason: nausea and vomiting) Qty: 20 0RF ondansetron HCl 4 mg tablet 4 mg PO Q8H PRN (Reason: nausea and vomiting) Qty: 14 0RF methocarbamol 500 mg tablet 1,000 mg PO Q6H 3 Days Qty: 24 0RF oxycodone 5 mg tablet 5 mg PO BID PRN (Reason: pain) Qty: 5 0RF Rx Instructions: Partial Fill upon patient request. ibuprofen 800 mg tablet 800 mg PO Q8H PRN (Reason: pain) Qty: 10 0RF cyclobenzaprine 10 mg tablet 10 mg PO BEDTIME Qty: 10 0RF acetaminophen [Tylenol Extra Strength] 500 mg tablet 500 mg PO Q6H PRN (Reason: fever or pain) Qty: 14 0RF lidocaine [Lidoderm] 5 % adhesive patch,medicated 1 patch topical DAILY MDD remove after 12 hours PRN (Reason: pain) Qty: 30 0RF Rx Instructions: leave on most painful area for up to 12 hrs naproxen 500 mg tablet 500 mg PO BID PRN (Reason: pain) 10 Days Qty: 20 0RF cyclobenzaprine 5 mg tablet 5 mg PO Q8H PRN (Reason: pain (scale score 7-10)) 5 Days Qty: 14 0RF ibuprofen 600 mg tablet 600 mg PO TID PRN (Reason: pain) Qty: 14 0RF cyclobenzaprine 10 mg tablet 10 mg PO TID PRN (Reason: muscle spasm) Qty: 14 0RF lidocaine 5 % adhesive patch,medicated 1 patch topical DAILY Qty: 15 0RF Rx Instructions: leave on most painful area for up to 12 hrs ketorolac 10 mg tablet 10 mg PO .B.i.d. PRN (Reason: pain) Qty: 7 0RF Rx Instructions: No take this medication with ibuprofen, naproxen or any NSAIDs loperamide [Imodium A-D] 2 mg capsule 2 mg PO Q6H PRN (Reason: loose stool) Qty: 20 0RF ondansetron 4 mg tablet,disintegrating 4 mg PO Q8H PRN (Reason: nausea and vomiting) Qty: 14 0RF dicyclomine 10 mg capsule 10 mg PO TID PRN (Reason: abdominal pain) Qty: 20 0RF Stand Alone Forms: Work/School Release Print Language: Romansh
[2025-09-24 19:25] VITALS: BP 124/71; PULSE 79; RESP 20; TEMP 36.6; O2SAT 99; BMI 26.4
[2025-09-24 19:40] LABS: MANUAL DIFF FLAG NO
[2025-09-24 19:45] LABS: Hematocrit 44.7 % (42.0-52.0); Hemoglobin 15.8 g/dl (14.0-18.0); Imm Gran Abs Auto 0.01 X10*3/uL (0.00-0.03); Imm Gran Pct Auto 0.1 % (0.0-0.4); Lymphocytes Absolute Auto 2.5 X10*3/uL (1.2-4.9); Mean Corpuscular HGB Conc 35.3 g/dl (31.0-36.0); Mean Corpuscular Hemoglobin 30.8 pg (27.0-33.0); Mean Corpuscular Volume 87.1 fL (80.0-98.0); NRBC Abs Auto 0.000 X10*3/uL (0.0-0.012); NRBC Pct Auto 0.0 /100WBC (0.0-0.2); Platelet Count 224 X10*3/uL (160-400); Red Blood Count 5.13 X10*6/uL (4.60-5.80); White Blood Count 7.3 X10*3/uL (4.8-10.8)
[2025-09-24 19:46] VITALS: BP 108/71; PULSE 74; RESP 12; TEMP 36.6; O2SAT 94
[2025-09-24 19:54] LABS: Alanine Aminotransferase 20 U/L (0-40); Albumin Level 5.1 g/dL (3.5-5.0); Alkaline Phosphatase 58 U/L (39-117); Anion Gap 11 (12-20); Aspartate Amino Transferase 21 U/L (5-37); Blood Urea Nitrogen 15 mg/dL (9-16); Calcium 9.6 mg/dL (8.4-10.2); Carbon Dioxide 24 mmol/L (22-29); Chloride 109 mmol/L (96-108); Creatinine Clr Calc Pharmacy 137.2; Estimated Glomerular Filt Rate > 60; Magnesium 2.2 mg/dL (1.6-2.6); Potassium 3.5 mmol/L (3.3-5.1); Sodium 140 mmol/L (135-145); Total Protein 7.7 g/dL (6.5-8.0)
[2025-09-24 20:02] LABS: Troponin-I High Sensitivity < 2.7 ng/L (<3.5-35.0)
[2025-09-24 20:37] VITALS: BP 112/56; PULSE 65; RESP 13; TEMP 36.6; O2SAT 98
[2025-09-24] MEDS: Sucralfate Oral Suspension 1 GM/10 ML ORAL.SUSP PO (21:11)
[2025-09-24 21:52] VITALS: BP 99/55; PULSE 65; RESP 18; TEMP 36.6; O2SAT 98
== END 2025-09-24 21:54 | disposition home or self-care (01) ==
PROVIDERS: Physician Assistant Medical; Emergency Provider Emergency Medicine
DX: R07.89 Other chest pain (principal); R10.13 Epigastric pain; J45.909 Unspecified asthma, uncomplicated
CPT/HCPCS: 36415; 71046; 80048; 80076; 83735; 84484; 85025; 93005; 96372; 99284; 99285; J1885

== ENCOUNTER → 2025-09-24 19:13 | Outpatient (BNV) | payer SELFPAY | PROVIDERS: Emergency Provider Emergency Medicine; Visit Provider Internal Medicine Cardiovascular Disease | DX: R07.9 Chest pain, unspecified (principal) | CPT/HCPCS: 93010 ==

== ENCOUNTER → 2025-09-24 19:26 | Outpatient (BNV) | payer SELFPAY | PROVIDERS: Emergency Provider Emergency Medicine; Visit Provider Radiology Diagnostic Radiology | DX: R07.9 Chest pain, unspecified (principal) | CPT/HCPCS: 71046 ==